=== PATIENT | male | born 1940 | race Caucasian/White ===

== ENCOUNTER 2019-11-18 14:18 | Inpatient (IN) ==
--- NOTE | 2019-11-18 14:45 | DR.GENAD ---
HPI Time Seen Time Seen by Provider: 11/18/19 14:45 PCP Primary Care Physician: MOHIT PENN HPI Comment HPI Comment: PATIENT IS 79YR OLD MALE IN ER WITH GENERALIZED WEAKNESS AND ANOREXIA WORSE SINCE YESTERDAY. NO FEVER OR CHEST PAIN OR ABDOMINAL PAIN RO DYSURIA. PATIENT HAVE NON PRODUCTIVE COUGH. Complaint/Symptoms Chief Complaint Doctors Comments: INCREASING GENERALIZED WEAKNESS AND ANOREXIA Chief Complaint:: PT TO ER WITH C/O < APPETITE, PT TO ER ON PREVIOUS DAY TIMES 2 FOR WEAKNESS ,BR Nurses notes reviewed Nurses Notes Review: Yes Source History Provided: EMS Mode of Arrival Mode of Arrival: EMS Timing Onset of Chief Complaint: 11/17/19 Came on: Suddenly Duration Duration: Constant Duration: Days Location Location: GENERALIZED WEAKNESS. Severity Severity: Moderate Modifying Factors Worsens:: EXERTION. Improves:: REST. Other History Other History: HISTORY DEMENTIA. PMH PMH Past Medical History: Yes Past Medical History: Dementia Past Surgical History: Yes Surgical History: Unknown Family History History of Family Medical Conditions: No Social History Does patient currently use any type of tobacco product: No Have you used tobacco products in the last 12 months: No Type of Tobacco Use: None Does any household member use tobacco: No Alcohol Use: None Do you use any recreational Drugs:: No Lives With: Family Lives Where: Home infectious screening In the last 2 months have you had wt loss of >10#?: NO Have you had fever, night sweats or hemotysis?: No Have you traveled outside the country in the last 6 months?: No Isolation: Standard ROS Review of Systems Constitutional: See HPI, Weakness and Fatigue; negative Fever Eyes: No Symptoms Reported and See HPI; negative Blurred Vision ENTM: No Symptoms Reported and See HPI; negative Ear Pain, Nose Discharge, Nose Congestion and Throat Pain Respiratoy: No Symptoms Reported, See HPI and Non-Productive Cough; negative Moist Cough, Short of Breath and Wheezing Cardiovascular: No Symptoms Reported and See HPI; negative Chest Pain, Edema and Palpitations Gastrointestinal/Abdominal: See HPI, Nausea and Other (POOR APPETITE.); negative Abdominal Pain, Diarrhea and Vomiting Genitourinary: No Symptoms Reported and See HPI; negative Dysuria Neurological: See HPI and Weakness; negative Headache and Dizziness Musculoskeletal: See HPI, Back Pain and Muscle Pain Integumentary: See HPI and Dryness; negative Change in Color, Rash and Juandice Hematologic/Lymphatic: See HPI and Easy Bruising; negative Swollen Glands Endocrine: See HPI and Decreased Appetite; negative Increased Thirst and Increased Urine Psychiatric: No Symptoms Reported and See HPI All Other Systems: Reviewed and Negative Unable to Obtain Due To: Dementia PE Vital Signs Vitals: Temperature 97.6 F Pulse Rate [Left Brachial] 103 Pulse Rate 98 Respiratory Rate 18 Blood Pressure [Left Arm] 197/87 Blood Pressure 137/78 O2 Sat by Pulse Oximetry 92 General Limitations: No Limitations General Appearance: Alert and In No Apparent Distress Head Head Exam: Normal Inspection and Atraumatic Eyes Eye exam: Normal Appearance and PERRL; negative Scleral Icterus and Conjunctival Injection ENT ENT Exam: Normal Exam, Normal Oropharynx, Normal External Ear Exam and TM's Normal Bilaterally External Ear Exam: Normal External Inspection TM/Canal Exam: Bilateral: Normal Nose Exam: Normal Nose Exam; negative Sinus Tenderness Mouth Exam: Normal Inspection Throat Exam: Normal Inspection; negative Tonsillar Erythema, Tonsillomegaly and Tonsillar Exudate Neck Neck Exam: Normal Inspection and Trachea Midline; negative Tenderness and Lymphadenopathy Chest Chest Inspection: Normal Inspection, Symmetric Chest Wall Rise and Tenderness Respiratory Respiratory Exam: Normal Lung Sounds Bilat; negative Accessory Muscle Use, Chest Wall Tenderness and Respiratory Distress Respiratory Exam: Bilateral: Rhonchi and Lower: Rhonchi Cardiovascular Cardiovascular Exam: Regular Rate, Normal Rhythm and Normal Heart Sounds Abdominal Exam Abdominal Exam: Normal Inspection, Normal Bowel Sounds and Soft; negative Tenderness Extremities Extremities Exam: Normal Inspection Back Back Exam: Normal Inspection Neurologic Neurological Exam: Alert and Oriented X3; negative Motor Sensory Deficit Psychiatric Psychiatric Exam: Normal Affect and Normal Mood Skin Skin Exam: Dry MDM Differential Diagnosis Differential Diagnosis: GENERALIZED WEAKNESS, ANOREXIA, COURSE Treatment Treatment: SEE ORDERS. Education/Counseling Education/Counseling: Patient Educated On: Diagnosis ROR Labs Reviewed Laboratory Results Reviewed?: Yes Result Diagrams: 11/30/19 05:44 11/30/19 05:44 Laboratory: 11/18/19 23:39 Blood Blood Culture - Final 11/18/19 22:50 Blood Blood Culture - Final 11/19/19 06:34 Sputum - Expectorated Sputum Sputum Culture - Final 11/19/19 06:34 Sputum - Expectorated Sputum - Final WBC 10.4 X10^3/uL (3.6-10.0) H 11/20/19 05:42 RBC 3.60 X10^6/uL (4.7-6.0) L 11/20/19 05:42 Hgb 11.5 g/dL (13.5-18.0) L 11/20/19 05:42 Hct 33.2 % (42.0-54.0) L 11/20/19 05:42 MCV 92.2 fL (80.0-100.0) 11/20/19 05:42 MCH 31.9 pg (27.0-34.0) 11/20/19 05:42 MCHC 34.6 g/dL (33.0-35.0) 11/20/19 05:42 RDW 13.9 % (11.6-16.5) 11/20/19 05:42 Plt Count 202 X10^3/uL (150.0-450.0) 11/20/19 05:42 MPV 7.3 fL (7.4-11.0) L 11/20/19 05:42 Neut % (Auto) 74.1 % (42.0-75.0) 11/20/19 05:42 Lymph % (Auto) 13.4 % (21.0-51.0) L 11/20/19 05:42 [place] % (Auto) 10.3 % (0.0-13.0) 11/20/19 05:42 Eos % (Auto) 1.7 % (0.9-2.9) 11/20/19 05:42 Baso % (Auto) 0.5 % (0.2-1.0) 11/20/19 05:42 Neut # (Auto) 7.7 x10^3/uL (2.2-4.8) H 11/20/19 05:42 Lymph # (Auto) 1.4 X10^3/uL (1.3-2.9) 11/20/19 05:42 [place] # (Auto) 1.1 x10^3/uL (0.3-0.8) H 11/20/19 05:42 Eos # (Auto) 0.2 x10^3/uL (0.0-0.2) 11/20/19 05:42 Baso # (Auto) 0.0 X10^3/uL (0.0-0.1) 11/20/19 05:42 Absolute Nucleated RBC 0.0 /100WBC 11/20/19 05:42 Sodium 138 mmol/L (136-145) 11/20/19 05:42 Corrected Sodium 139 mmol/L (136-145) 11/20/19 05:42 Potassium 3.1 mmol/L (3.5-5.1) L 11/20/19 05:42 Chloride 105 mmol/L (98-107) 11/20/19 05:42 Carbon Dioxide 23.3 mmol/L (21-32) 11/20/19 05:42 BUN 12 mg/dL (7-18) 11/20/19 05:42 Creatinine 1.41 mg/dL (0.70-1.30) H 11/20/19 05:42 Est GFR (MDRD) Af Amer > 60 (>60) 11/20/19 05:42 Est GFR (MDRD) Non-Af 51 (>60) L 11/20/19 05:42 Glucose 125 mg/dL (65-99) H 11/20/19 05:42 Lactic Acid 0.8 mmol/L (0.4-2.0) 11/18/19 22:50 Calcium 7.8 mg/dL (8.5-10.1) L 11/20/19 05:42 Corrected Calcium 9.2 mg/dL (8.5-10.1) 11/20/19 05:42 Magnesium 1.9 mg/dL (1.7-2.9) 11/19/19 05:50 Total Bilirubin 0.60 mg/dL (0.2-1.0) 11/20/19 05:42 AST 19 Units/L (15-37) 11/20/19 05:42 ALT 15 Units/L (12-78) 11/20/19 05:42 Alkaline Phosphatase 41 Units/L (46-116) L 11/20/19 05:42 Creatine Kinase 109 Units/L (39-308) 11/19/19 05:50 CK-MB (CK-2) 1.4 ng/mL (0-4.0) 11/19/19 05:50 CK/CKMB % Calc 1.3 % (<4) 11/19/19 05:50 Troponin I < 0.02 ng/mL (0-1.5) 11/19/19 05:50 Total Protein 6.3 g/dL (6.4-8.2) L 11/20/19 05:42 Albumin 2.2 g/dL (3.4-5.0) L 11/20/19 05:42 Globulin 4.1 g/dL (2.5-4.5) 11/20/19 05:42 Albumin/Globulin Ratio 0.5 Ratio (1.1-2.1) L 11/20/19 05:42 Specimen Type Clean catch urine 11/18/19 21:30 Urine Color Dark yellow (YELLOW) 11/18/19 21:30 Urine Appearance Slightly hazy (CLEAR) 11/18/19 21:30 Urine pH 5.0 (5.0 - 8.0) 11/18/19 21:30 Ur Specific [place] 1.020 (1.000-1.030) 11/18/19 21:30 Urine Protein 2+ (NEGATIVE) 11/18/19 21:30 Urine Glucose (UA) Negative (NEGATIVE) 11/18/19 21:30 Urine Ketones 2+ (NEGATIVE) 11/18/19 21:30 Urine Occult Blood 4+ (NEGATIVE) 11/18/19 21:30 Urine Nitrite Negative (NEGATIVE) 11/18/19 21:30 Urine Bilirubin Negative (NEGATIVE) 11/18/19 21:30 Urine Urobilinogen Normal (NORMAL) 11/18/19 21:30 Ur Leukocyte Esterase Negative (NEGATIVE) 11/18/19 21:30 Urine RBC 3-5 /HPF (0-3) A 11/18/19 21:30 Urine WBC None seen /HPF (0-5) 11/18/19 21:30 Ur Squamous Epith Cells Rare /HPF (NEGATIVE) 11/18/19 21:30 Urine Bacteria Negative /HPF (NEGATIVE) 11/18/19 21:30 Urine Mucus Few /HPF (NEGATIVE) 11/18/19 16:51 Ur Culture Indicated? No/not indicated 11/18/19 21:30 Opioid Opioid Risk Tool Age (Dex box if 16-45): No History of Preadolescent Sexual Abuse: No Total: 0 Total Score Risk Category: Low Risk Copyright: Rodrigo HASKINS predicting aberrant behaviors Diagnosis Discharge Problem: Hypokalemia, Generalized weakness Acute bronchitis Qualifiers: Bronchitis organism: unspecified organism Qualified Code(s): J20.9 - Acute bronchitis, unspecified AMS (altered mental status) Qualifiers: Altered mental status type: transient alteration of awareness Qualified Code(s): R40.4 - Transient alteration of awareness Instructions Instructions: Fall Prevention in the Home, Adult, [id number] Pulmonary Embolism Hypertension, [id number] Community-Acquired Pneumonia, Adult, [id number] Forms: Patient Portal
[2019-11-18 15:06] LABS: BASOPHILS % (AUTO) 0.4 % (0.2-1.0); EOSINOPHILS # (AUTO) 0.1 x10^3/uL (0.0-0.2); HEMATOCRIT 37.8 % (42.0-54.0); HEMOGLOBIN 12.9 g/dL (13.5-18.0); LYMPHOCYTES # (AUTO) 1.5 X10^3/uL (1.3-2.9); LYMPHOCYTES % (AUTO) 12.4 % (21.0-51.0); MEAN CORPUSCULAR HEMOGLOBIN 31.6 pg (27.0-34.0); MEAN CORPUSCULAR HGB CONC 34.1 g/dL (33.0-35.0); MEAN CORPUSCULAR VOLUME 92.7 fL (80.0-100.0); MEAN PLATELET VOLUME 7.8 fL (7.4-11.0); MONOCYTES # (AUTO) 1.3 x10^3/uL (0.3-0.8); MONOCYTES % (AUTO) 10.7 % (0.0-13.0); NEUTROPHILS % (AUTO) 75.5 % (42.0-75.0); PLATELET COUNT 183 X10^3/uL (150.0-450.0); RED BLOOD COUNT 4.07 X10^6/uL (4.7-6.0); RED CELL DISTRIBUTION WIDTH 13.9 % (11.6-16.5)
[2019-11-18 15:16] LABS: ALANINE AMINOTRANSFERASE 17 Units/L (12-78); ALBUMIN 2.8 g/dL (3.4-5.0); ALKALINE PHOSPHATASE 37 Units/L (46-116); ASPARTATE AMINO TRANSFERASE 18 Units/L (15-37); BLOOD UREA NITROGEN 20 mg/dL (7-18); CALCIUM 8.2 mg/dL (8.5-10.1); CARBON DIOXIDE 26.4 mmol/L (21-32); CHLORIDE 101 mmol/L (98-107); COR CA(FOR HYPOALB) 9.2 mg/dL (8.5-10.1); CREATININE 1.55 mg/dL (0.70-1.30); SODIUM 135 mmol/L (136-145); TOTAL PROTEIN 7.1 g/dL (6.4-8.2); eGFR NON BLACK RACES 46 (>60)
[2019-11-18 17:11] LABS: BILIRUBIN,URINE NEGATIVE (NEGATIVE); BLOOD/HEMOGLOBIN,URINE 4+ (NEGATIVE); GLUCOSE, URINE NEGATIVE (NEGATIVE); KETONES,URINE 2+ (NEGATIVE); LEUKOCYTE ESTERASE ,URINE NEGATIVE (NEGATIVE); NITRITES,URINE NEGATIVE (NEGATIVE); PROTEIN,URINE 2+ (NEGATIVE); UROBILINOGEN,URINE NORMAL (NORMAL)
[2019-11-18 17:13] LABS: APPEARANCE,URINE HAZY (CLEAR); COLOR,URINE YELLOW (YELLOW)
[2019-11-18 17:22] LABS: BACTERIA,URINE TRACE /HPF (NEGATIVE); MUCUS,URINE FEW /HPF (NEGATIVE); SQUAMOUS EPITHELIAL CELL,UR RARE /HPF (NEGATIVE)
[2019-11-18] MEDS ORDERED: SALINE 3% 15 ML NEB TX ONE (17:56)
[2019-11-18] MEDS ORDERED: SALINE 3% 15 ML NEB TX NEB ONE (18:00)
[2019-11-18] MEDS: ZOSYN VIAL 3.375 GRAMS 3.375 G in NS 100 ML IV + SPIKE MINIBAG* 100 ML IV SCH (21:00)
[2019-11-18] MEDS: NS 1000 ML 1,000 ML IV SCH (21:00)
[2019-11-18 22:01] LABS: BILIRUBIN,URINE NEGATIVE (NEGATIVE); BLOOD/HEMOGLOBIN,URINE 4+ (NEGATIVE); GLUCOSE, URINE NEGATIVE (NEGATIVE); KETONES,URINE 2+ (NEGATIVE); LEUKOCYTE ESTERASE ,URINE NEGATIVE (NEGATIVE); NITRITES,URINE NEGATIVE (NEGATIVE); PROTEIN,URINE 2+ (NEGATIVE); UROBILINOGEN,URINE NORMAL (NORMAL)
[2019-11-18 22:24] LABS: APPEARANCE,URINE SLIGHTLY HAZY (CLEAR); BACTERIA,URINE NEGATIVE /HPF (NEGATIVE); COLOR,URINE DARK YELLOW (YELLOW); SQUAMOUS EPITHELIAL CELL,UR RARE /HPF (NEGATIVE)
[2019-11-18 23:24] LABS: CKMB % 1.8 % (<4); CREATINE KINASE 109 Units/L (39-308); TROPONIN I < 0.02 ng/mL (0-1.5)
[2019-11-19 00:01] VITALS: BMI 22.5
[2019-11-19] MEDS: ZOSYN VIAL 3.375 GRAMS 3.375 G in NS 100 ML IV + SPIKE MINIBAG* 100 ML IV SCH ×4 (00:06→22:22)
[2019-11-19] MEDS: DUONEB 0.5 MG/3 MG (3 mL) NEB SCH ×4 (00:50→17:02)
[2019-11-19] MEDS: NS 1000 ML 1,000 ML IV SCH ×3 (05:29→22:21)
[2019-11-19] MEDS: ULTRAM PO PRN (05:47)
[2019-11-19 06:06] LABS: BASOPHILS % (AUTO) 0.3 % (0.2-1.0); EOSINOPHILS # (AUTO) 0.1 x10^3/uL (0.0-0.2); HEMATOCRIT 35.7 % (42.0-54.0); HEMOGLOBIN 12.2 g/dL (13.5-18.0); LYMPHOCYTES # (AUTO) 1.7 X10^3/uL (1.3-2.9); LYMPHOCYTES % (AUTO) 13.7 % (21.0-51.0); MEAN CORPUSCULAR HEMOGLOBIN 31.8 pg (27.0-34.0); MEAN CORPUSCULAR HGB CONC 34.3 g/dL (33.0-35.0); MEAN CORPUSCULAR VOLUME 92.8 fL (80.0-100.0); MEAN PLATELET VOLUME 7.8 fL (7.4-11.0); MONOCYTES # (AUTO) 1.3 x10^3/uL (0.3-0.8); MONOCYTES % (AUTO) 10.8 % (0.0-13.0); NEUTROPHILS # (AUTO) 9.2 x10^3/uL (2.2-4.8); NEUTROPHILS % (AUTO) 74.2 % (42.0-75.0); PLATELET COUNT 169 X10^3/uL (150.0-450.0); RED BLOOD COUNT 3.84 X10^6/uL (4.7-6.0); RED CELL DISTRIBUTION WIDTH 14.3 % (11.6-16.5); WHITE BLOOD COUNT 12.4 X10^3/uL (3.6-10.0)
--- NOTE | 2019-11-19 06:08 | RAD ---
HISTORYShortness of breathSTUDYCHEST, 1 VIEWCOMPARISONFebruary 2019FINDINGSThe heart is enlarged. No congestive heart failure is noted. The lungs are hypoinflated but free of acute infiltrates. Right basilar subsegmental atelectasis is unchanged. Bony thorax is unremarkable.IMPRESSIONCardiomegaly without congestive heart failureLungs hypoinflated but free of acute infiltratesSubsegmental atelectasis right lung base unchangedElectronically signed by: JESS ELILS (Nov 19, 2019 06:07:11)
[2019-11-19 06:28] LABS: ALANINE AMINOTRANSFERASE 11 Units/L (12-78); ALBUMIN 2.4 g/dL (3.4-5.0); ALKALINE PHOSPHATASE 33 Units/L (46-116); ASPARTATE AMINO TRANSFERASE 21 Units/L (15-37); BLOOD UREA NITROGEN 17 mg/dL (7-18); CHLORIDE 104 mmol/L (98-107); CKMB % 1.3 % (<4); COR CA(FOR HYPOALB) 9.3 mg/dL (8.5-10.1); COR NA(FOR HYPERGLY) 136 mmol/L (136-145); CREATINE KINASE 109 Units/L (39-308); CREATINE KINASE MB 1.4 ng/mL (0-4.0); CREATININE 1.55 mg/dL (0.70-1.30); MAGNESIUM 1.9 mg/dL (1.7-2.9); SODIUM 136 mmol/L (136-145); TOTAL PROTEIN 6.6 g/dL (6.4-8.2); TROPONIN I < 0.02 ng/mL (0-1.5); eGFR NON BLACK RACES 46 (>60)
[2019-11-19] MEDS: ARICEPT TAB 10 MG PO SCH (09:26)
[2019-11-19] MEDS: DITROPAN TAB 5 MG PO SCH (09:26)
[2019-11-19] MEDS: ASPIRIN EC 81 MG PO SCH (09:26)
[2019-11-19] MEDS: LOPRESSOR TAB 25 MG PO SCH (09:27)
[2019-11-19] MEDS: SYNTHROID 25 mcg TAB PO SCH (09:27)
[2019-11-19] MEDS: LOVENOX INJ 40 MG SYR SC SCH (10:34)
--- NOTE | 2019-11-19 19:34 | DR.H&P ---
H&P - History & Physical for Day of: H&P Date: 11/18/19 - Chief Complaint Chief Complaint: WEAKNESS, DECREASED APPETITE, GENERALIZED PAIN, SOB, COUGH, FEVER - History of Present Illness History of Present Illness: IS A 79 YEAR OLD PATIENT OF OURS WHO PRESENTED TO THE EMERGENCY ROOM WITH COMPLAINTS OF WEAKNESS, DECREASED APPETITE, GENERALIZED PAIN, AND SHORTNESS OF BREATH. HE HAS A PMH OF DEMENTIA AND OSTEOARTHRITIS. FAMILY REPORTS THAT HE HAS HAD A RECENT COUGH AND FEVER. ON ARRIVAL TO THE ER, VITALS WERE 98.8-88-20-93%-137/78. LABS WERE OBTAINED. ABNORMAL LAB VALUES INCLUDE THE FOLLOWING: WBC 12.0, RBC 4.07, HGB 12.9, HCT 37.8, SODIUM 135, BUN 20, CREATININE 1.55, CALCIUM 8.2, ALK PHOS 37, ALBUMIN 2.8. CARDIAC ENZYMES WITHIN NORMAL LIMITS. A URINALYSIS WAS OBTAINED AND REVEALED: WBC 0-2, RBC 3-5, BACTERIA TRACE, LEUKOCYTES NEGATIVE. BLOOD AND SPUTUM CULTURES WERE OBTAINED. EKG WAS OBTAINED AND REVEALED: SINUS RHYTHM WITH HR 84. A CHEST XRAY WAS OBTAINED ON 11/17 AND REVEALED: Right basilar subsegmental atelectasis versus scarring. AN ABDOMEN/PELVIS CT WITHOUT CONTRAST WAS ALSO OBTAINED ON 11/17 AND REVEALED: Urinary bladder wall thickening with some associated diverticula. There is no associated strain although clinical correlation is requested to exclude the possibility underlying cystitis. HE WAS ADMITTED TO THE HOSPITAL FOR FURTHER EVALUATION AND TREATMENT OF ACUTE BRONCHITIS AND ALTERED MENTAL STATUS. HE WAS STARTED ON NS AT 75 ML/HR, ZOSYN 3.375G IV TID, RESPIRATORY TX, LOVENOX, SUPPLEMENTAL OXYGEN, AND HOME MEDICATIONS WERE RESUMED. WE PLAN TO FOLLOW UP WITH AM LABS AND CHEST XRAY AND CONTINUE TO MONITOR. - Past Medical History Past Medical History: Dementia - Past Surgical History Surgical History: Tonsillectomy - Family History Family Medical History: [place], Coronary Artery Disease, Heart Failure, Hypertension - Social History Does patient currently use any type of tobacco product: No Have you used tobacco products in the last 12 months: No Type of Tobacco Use: None Does any household member use tobacco: No Alcohol Use: None Drug Use: None - Medications Home Medications: No Known Drug Allergies Allergy (Verified 11/17/19 08:56) - Review of Systems Constitutional: Weakness Eyes: No Symptoms Reported ENT: No Symptoms Reported Respiratory: See HPI, Cough, Shortness of Breath, SOB with Excertion Cardiovascular: No Symptoms Reported Gastrointestinal: Abdominal Pain Genitourinary: No Symptoms Reported Musculoskeletal: No Symptoms Reported Skin: No Symptoms Reported Neurological: Weakness, Confusion - Physical Exam Vital Signs: Temperature 98.3 F Pulse Rate [Left Brachial] 102 Pulse Rate 98 Respiratory Rate 18 Blood Pressure [Left Arm] 134/63 Blood Pressure 137/78 O2 Sat by Pulse Oximetry 94 Oriented: Person Eyes: Normal Ear: Normal Nose: Normal Throat: Normal Respiratory: Diminished Throughout Cardiovascular: Normal : Normal Auscultation: Bowel Sounds: Normal Palpation: Normal Tenderness: Normal Skin: Normal Musculoskeletal: Normal Psychiatric: Normal Mood Description: Calm Affect: Normal - Assessment/Plan (1) Acute bronchitis Qualifiers: Bronchitis organism: unspecified organism Qualified Code(s): J20.9 - Acute bronchitis, unspecified Status: Acute Plan: ADMIT, NS AT 75 ML/HR, ZOSYN 3.375G IV TID, RESPIRATORY TX, LOVENOX, SUPPLEMENTAL OXYGEN, AND HOME MEDICATIONS WERE RESUMED, FOLLOW UP WITH AM LABS AND CHEST XRAY (2) Altered mental status Qualifiers: Altered mental status type: transient alteration of awareness Qualified Code(s): R40.4 - Transient alteration of awareness Status: Acute - Allergies Allergies/Adverse Reactions: Allergies Allergy/AdvReac Type Severity Reaction Status Date / Time No Known Drug Allergies Allergy Verified 11/17/19 08:56
[2019-11-20] MEDS: DUONEB 0.5 MG/3 MG (3 mL) NEB SCH ×5 (00:49→18:46)
[2019-11-20 05:55] LABS: BASOPHILS % (AUTO) 0.5 % (0.2-1.0); EOSINOPHILS # (AUTO) 0.2 x10^3/uL (0.0-0.2); EOSINOPHILS % (AUTO) 1.7 % (0.9-2.9); HEMATOCRIT 33.2 % (42.0-54.0); HEMOGLOBIN 11.5 g/dL (13.5-18.0); LYMPHOCYTES # (AUTO) 1.4 X10^3/uL (1.3-2.9); LYMPHOCYTES % (AUTO) 13.4 % (21.0-51.0); MEAN CORPUSCULAR HEMOGLOBIN 31.9 pg (27.0-34.0); MEAN CORPUSCULAR HGB CONC 34.6 g/dL (33.0-35.0); MEAN CORPUSCULAR VOLUME 92.2 fL (80.0-100.0); MEAN PLATELET VOLUME 7.3 fL (7.4-11.0); MONOCYTES # (AUTO) 1.1 x10^3/uL (0.3-0.8); MONOCYTES % (AUTO) 10.3 % (0.0-13.0); NEUTROPHILS # (AUTO) 7.7 x10^3/uL (2.2-4.8); NEUTROPHILS % (AUTO) 74.1 % (42.0-75.0); PLATELET COUNT 202 X10^3/uL (150.0-450.0); RED CELL DISTRIBUTION WIDTH 13.9 % (11.6-16.5); WHITE BLOOD COUNT 10.4 X10^3/uL (3.6-10.0)
[2019-11-20 06:11] LABS: ALANINE AMINOTRANSFERASE 15 Units/L (12-78); ALBUMIN 2.2 g/dL (3.4-5.0); ALKALINE PHOSPHATASE 41 Units/L (46-116); ASPARTATE AMINO TRANSFERASE 19 Units/L (15-37); BLOOD UREA NITROGEN 12 mg/dL (7-18); CALCIUM 7.8 mg/dL (8.5-10.1); CARBON DIOXIDE 23.3 mmol/L (21-32); CHLORIDE 105 mmol/L (98-107); COR CA(FOR HYPOALB) 9.2 mg/dL (8.5-10.1); COR NA(FOR HYPERGLY) 139 mmol/L (136-145); CREATININE 1.41 mg/dL (0.70-1.30); SODIUM 138 mmol/L (136-145); TOTAL PROTEIN 6.3 g/dL (6.4-8.2); eGFR NON BLACK RACES 51 (>60)
--- NOTE | 2019-11-20 06:18 | RAD ---
HISTORYShortness of breathSTUDYCHEST, 1 VIEWCOMPARISONFebruary 2019FINDINGSThe heart is upper limits normal in size. No congestive heart failure is noted. The lungs are free of acute alveolar infiltrates. There is subsegmental atelectasis in the right lung base. No pleural effusions are identified. The bony thorax is unremarkable.IMPRESSIONNo change subsegmental atelectasis right lung baseElectronically signed by: JESS ELLIS (Nov 20, 2019 06:16:52)
[2019-11-20] MEDS ORDERED: POTASSIUM CHLORIDE LIQ 20 MEQ UDC PO PRN (07:05)
[2019-11-20] MEDS ORDERED: POTASSIUM CHL 60 MEQ/NS 0.45% 500 ML IV PRN (07:05)
[2019-11-20] MEDS ORDERED: K-DUR TAB 20 MEQ PO PRN (07:05)
[2019-11-20] MEDS ORDERED: MICRO K EXTEN CAP 10 MEQ PO PRN (07:05)
[2019-11-20] MEDS ORDERED: POTASSIUM CHL 40 MEQ/NS 0.45% 500 ML IV PRN (07:05)
[2019-11-20] MEDS ORDERED: KLOR-CON PO PRN (07:05)
[2019-11-20] MEDS: ZOSYN VIAL 3.375 GRAMS 3.375 G in NS 100 ML IV + SPIKE MINIBAG* 100 ML IV SCH ×3 (07:30→21:07)
[2019-11-20] MEDS: ARICEPT TAB 10 MG PO SCH (09:15)
[2019-11-20] MEDS: ASPIRIN EC 81 MG PO SCH (09:16)
[2019-11-20] MEDS: DITROPAN TAB 5 MG PO SCH (09:16)
[2019-11-20] MEDS: LOVENOX INJ 40 MG SYR SC SCH (09:16)
[2019-11-20] MEDS: LOPRESSOR TAB 25 MG PO SCH (09:16)
[2019-11-20] MEDS: SYNTHROID 25 mcg TAB PO SCH (09:17)
[2019-11-20] MEDS: ULTRAM PO PRN ×2 (13:10→18:34)
[2019-11-20] MEDS: NS 1000 ML 1,000 ML IV SCH ×2 (14:20→23:28)
--- NOTE | 2019-11-20 19:11 | PCM.PROG ---
Progress Note - Progress Note for Day of Date of Exam: 11/20/19 - Subjective Subjective: IS BEING TREATED FOR ACUTE BRONCHITIS AND ALTERED MENTAL STATUS. TODAY, HE IS ALERT AND ORIENTED, LYING IN BED ON MORNING ROUNDS. HE CONTINUES WITH COMPLAINTS OF A PRODUCTIVE COUGH, SHORTNESS OF BREATH, AND WEAKNESS. ON EXAMINATION, HEART IS REGULAR IN RATE AND RHYTHM. BILATERAL LUNGS ARE NOTED WITH DIMINISHED LUNG SOUNDS THROUGHOUT. ABDOMEN IS ROUND, SOFT, AND NON-TENDER WITH NORMAL BOWEL SOUNDS NOTED IN ALL QUADRANTS. A ERICKSON CATHETER IS NOTED TO BEDSIDE DRAINAGE. HIS VITALS THIS MORNING ARE: 97.6-107-18-92%RA-197/87. LABS WERE OBTAINED. ABNORMAL LAB VALUES INCLUDE THE FO LLOWING: WBC 10.4, RBC 3.60, HGB 11.5, HCT 33.2, POTASSIUM 3.1, CREATININE 1.41, GLUCOSE 125, CALCIUM 7.8, ALK PHOS 41, TOTAL PROTEIN 6.3, ALBUMIN 2.2. BLOOD AND SPUTUM CULTURES ARE PENDING. A CHEST XRAY WAS OBTAINED AND REVEALED: No change subsegmental atelectasis right lung base. HE IS CURRENTLY RECEIVING NS AT 75 ML/HR, ZOSYN 3.375G IV TID, RESPIRATORY TX, LOVENOX, SUPPLEMENTAL OXYGEN, AND HOME MEDICATIONS WERE RESUMED. WE WILL CONTINUE WITH CURRENT PLAN OF CARE TODAY. WE WILL START BLADDER TRAINING AND ORDER FOR HIM TO WEAR THE SMARTVEST. OTHERWISE, WE WILL FOLLOW UP WITH AM LABS AND CONTINUE TO MONITOR. - Past Medical Family Social History Past Med/Fam/Surg Hx: No changes since H&P Allergies: Allergies No Known Drug Allergies Allergy (Verified 11/17/19 08:56) - Review of Systems ROS: No change since H&P - Vital Signs and I&O's Vital Signs: Temperature 98.8 F Pulse Rate [Left Brachial] 113 Pulse Rate 98 Respiratory Rate 18 Blood Pressure [Left Arm] 162/89 Blood Pressure 137/78 O2 Sat by Pulse Oximetry 95 Intake and Output: Intake & Output 11/18/19 11/19/19 11/20/19 11/21/19 11:59 11:59 11:59 11:59 Intake Total 1525 / 1525 2470 / 2470 993 / 993 Output Total 1100 / 1100 1950 / 1950 425 / 425 Balance 425 / 425 520 / 520 568 / 568 - Physical Exam Oriented: Person Eyes: Normal Ear: Normal Nose: Normal Throat: Normal Respiratory: Generalized, Wheezes Cardiovascular: Tachycardia. negative: S3, S4, Murmur : Normal Auscultation: Bowel Sounds: Normal Palpation: Normal Tenderness: Normal Skin: Normal Musculoskeletal: Normal Psychiatric: Normal Mood Description: Calm Affect: Normal Speech Pattern: Clear, Appropriate - Laboratory and Diagnostics Result Diagrams: 11/20/19 05:42 11/20/19 17:15 Labs: 11/19/19 06:34 Sputum - Expectorated Sputum Sputum Culture - Preliminary 11/19/19 06:34 Sputum - Expectorated Sputum - Final 11/18/19 23:39 Blood Blood Culture - Preliminary 11/18/19 22:50 Blood Blood Culture - Preliminary Laboratory WBC 10.4 X10^3/uL (3.6-10.0) H 11/20/19 05:42 RBC 3.60 X10^6/uL (4.7-6.0) L 11/20/19 05:42 Hgb 11.5 g/dL (13.5-18.0) L 11/20/19 05:42 Hct 33.2 % (42.0-54.0) L 11/20/19 05:42 MCV 92.2 fL (80.0-100.0) 11/20/19 05:42 MCH 31.9 pg (27.0-34.0) 11/20/19 05:42 MCHC 34.6 g/dL (33.0-35.0) 11/20/19 05:42 RDW 13.9 % (11.6-16.5) 11/20/19 05:42 Plt Count 202 X10^3/uL (150.0-450.0) 11/20/19 05:42 MPV 7.3 fL (7.4-11.0) L 11/20/19 05:42 Neut % (Auto) 74.1 % (42.0-75.0) 11/20/19 05:42 Lymph % (Auto) 13.4 % (21.0-51.0) L 11/20/19 05:42 [place] % (Auto) 10.3 % (0.0-13.0) 11/20/19 05:42 Eos % (Auto) 1.7 % (0.9-2.9) 11/20/19 05:42 Baso % (Auto) 0.5 % (0.2-1.0) 11/20/19 05:42 Neut # (Auto) 7.7 x10^3/uL (2.2-4.8) H 11/20/19 05:42 Lymph # (Auto) 1.4 X10^3/uL (1.3-2.9) 11/20/19 05:42 [place] # (Auto) 1.1 x10^3/uL (0.3-0.8) H 11/20/19 05:42 Eos # (Auto) 0.2 x10^3/uL (0.0-0.2) 11/20/19 05:42 Baso # (Auto) 0.0 X10^3/uL (0.0-0.1) 11/20/19 05:42 Absolute Nucleated RBC 0.0 /100WBC 11/20/19 05:42 Sodium 138 mmol/L (136-145) 11/20/19 05:42 Corrected Sodium 139 mmol/L (136-145) 11/20/19 05:42 Potassium 3.5 mmol/L (3.5-5.1) 11/20/19 17:15 Chloride 105 mmol/L (98-107) 11/20/19 05:42 Carbon Dioxide 23.3 mmol/L (21-32) 11/20/19 05:42 BUN 12 mg/dL (7-18) 11/20/19 05:42 Creatinine 1.41 mg/dL (0.70-1.30) H 11/20/19 05:42 Est GFR (MDRD) Af Amer > 60 (>60) 11/20/19 05:42 Est GFR (MDRD) Non-Af 51 (>60) L 11/20/19 05:42 Glucose 125 mg/dL (65-99) H 11/20/19 05:42 Lactic Acid 0.8 mmol/L (0.4-2.0) 11/18/19 22:50 Calcium 7.8 mg/dL (8.5-10.1) L 11/20/19 05:42 Corrected Calcium 9.2 mg/dL (8.5-10.1) 11/20/19 05:42 Magnesium 1.9 mg/dL (1.7-2.9) 11/19/19 05:50 Total Bilirubin 0.60 mg/dL (0.2-1.0) 11/20/19 05:42 AST 19 Units/L (15-37) 11/20/19 05:42 ALT 15 Units/L (12-78) 11/20/19 05:42 Alkaline Phosphatase 41 Units/L (46-116) L 11/20/19 05:42 Creatine Kinase 109 Units/L (39-308) 11/19/19 05:50 CK-MB (CK-2) 1.4 ng/mL (0-4.0) 11/19/19 05:50 CK/CKMB % Calc 1.3 % (<4) 11/19/19 05:50 Troponin I < 0.02 ng/mL (0-1.5) 11/19/19 05:50 Total Protein 6.3 g/dL (6.4-8.2) L 11/20/19 05:42 Albumin 2.2 g/dL (3.4-5.0) L 11/20/19 05:42 Globulin 4.1 g/dL (2.5-4.5) 11/20/19 05:42 Albumin/Globulin Ratio 0.5 Ratio (1.1-2.1) L 11/20/19 05:42 Specimen Type Clean catch urine 11/18/19 21:30 Urine Color Dark yellow (YELLOW) 11/18/19 21:30 Urine Appearance Slightly hazy (CLEAR) 11/18/19 21:30 Urine pH 5.0 (5.0 - 8.0) 11/18/19 21:30 Ur Specific [place] 1.020 (1.000-1.030) 11/18/19 21:30 Urine Protein 2+ (NEGATIVE) 11/18/19 21:30 Urine Glucose (UA) Negative (NEGATIVE) 11/18/19 21: Urine Ketones 2+ (NEGATIVE) 11/18/19 21: Urine Occult Blood 4+ (NEGATIVE) 11/18/19 21: Urine Nitrite Negative (NEGATIVE) 11/18/19 21:30 Urine Bilirubin Negative (NEGATIVE) 11/18/19 21:30 Urine Urobilinogen Normal (NORMAL) 11/18/19 21: Ur Leukocyte Esterase Negative (NEGATIVE) 11/18/19 21:30 Urine RBC 3-5 /HPF (0-3) A 11/18/19 21:30 Urine WBC None seen /HPF (0-5) 11/18/19 21:30 Ur Squamous Epith Cells Rare /HPF (NEGATIVE) 11/18/19 21:30 Urine Bacteria Negative /HPF (NEGATIVE) 11/18/19 21:30 Urine Mucus Few /HPF (NEGATIVE) 11/18/19 16:51 Ur Culture Indicated? No/not indicated 11/18/19 21:30 - Plan (1) Acute bronchitis Status: Acute Qualifiers: Bronchitis organism: unspecified organism Qualified Code(s): J20.9 - Acute bronchitis, unspecified Plan: NS AT 75 ML/HR, ZOSYN 3.375G IV TID, RESPIRATORY TX, LOVENOX, SUPPLEMENTAL OXYGEN, AND HOME MEDICATIONS WERE RESUMED, FOLLOW UP WITH AM LABS AND CHEST XRAY (2) Altered mental status Status: Acute Qualifiers: Altered mental status type: transient alteration of awareness Qualified Code(s): R40.4 - Transient alteration of awareness
[2019-11-20] MEDS ORDERED: MORPHINE SULFATE INJ 2 MG INJ IVP PRN (20:20)
[2019-11-20] MEDS ORDERED: COLACE CAP 100 MG PO PRN (21:01)
[2019-11-20] MEDS ORDERED: MILK OF MAGNESIA PO PRN (21:01)
[2019-11-21] MEDS: DUONEB 0.5 MG/3 MG (3 mL) NEB SCH ×4 (00:50→16:59)
[2019-11-21] MEDS: ZOSYN VIAL 3.375 GRAMS 3.375 G in NS 100 ML IV + SPIKE MINIBAG* 100 ML IV SCH ×3 (05:01→21:44)
--- NOTE | 2019-11-21 07:09 | RAD ---
HISTORYShortness of breathSTUDYCHEST, 1 VIEWCOMPARISONFebruary 2019FINDINGSThe heart remains upper limits normal in size. No congestive heart failure is noted. No acute alveolar infiltrates or pleural effusions are identified. Subsegmental atelectasis remains present at the right lung base. Bony thorax is unremarkable.IMPRESSIONNo change subsegmental atelectasis right lung baseElectronically signed by: JESS ELLIS (Nov 21, 2019 07:08:08)
[2019-11-21 07:16] LABS: BASOPHILS % (AUTO) 0.5 % (0.2-1.0); EOSINOPHILS # (AUTO) 0.4 x10^3/uL (0.0-0.2); EOSINOPHILS % (AUTO) 4.5 % (0.9-2.9); HEMATOCRIT 34.2 % (42.0-54.0); HEMOGLOBIN 11.6 g/dL (13.5-18.0); LYMPHOCYTES # (AUTO) 1.6 X10^3/uL (1.3-2.9); LYMPHOCYTES % (AUTO) 16.1 % (21.0-51.0); MEAN CORPUSCULAR HEMOGLOBIN 31.8 pg (27.0-34.0); MEAN CORPUSCULAR VOLUME 93.7 fL (80.0-100.0); MEAN PLATELET VOLUME 8.1 fL (7.4-11.0); MONOCYTES % (AUTO) 9.7 % (0.0-13.0); NEUTROPHILS # (AUTO) 6.8 x10^3/uL (2.2-4.8); NEUTROPHILS % (AUTO) 69.2 % (42.0-75.0); PLATELET COUNT 226 X10^3/uL (150.0-450.0); RED BLOOD COUNT 3.65 X10^6/uL (4.7-6.0); RED CELL DISTRIBUTION WIDTH 13.9 % (11.6-16.5); WHITE BLOOD COUNT 9.8 X10^3/uL (3.6-10.0)
[2019-11-21 07:31] LABS: ALANINE AMINOTRANSFERASE 11 Units/L (12-78); ALBUMIN 2.2 g/dL (3.4-5.0); ALKALINE PHOSPHATASE 38 Units/L (46-116); ASPARTATE AMINO TRANSFERASE 24 Units/L (15-37); BLOOD UREA NITROGEN 6 mg/dL (7-18); CALCIUM 8.4 mg/dL (8.5-10.1); CARBON DIOXIDE 23.6 mmol/L (21-32); CHLORIDE 107 mmol/L (98-107); COR CA(FOR HYPOALB) 9.8 mg/dL (8.5-10.1); MAGNESIUM 1.9 mg/dL (1.7-2.9); SODIUM 138 mmol/L (136-145); TOTAL PROTEIN 6.5 g/dL (6.4-8.2); eGFR NON BLACK RACES > 60 (>60)
[2019-11-21] MEDS: ARICEPT TAB 10 MG PO SCH (09:52)
[2019-11-21] MEDS: LOPRESSOR TAB 25 MG PO SCH (09:52)
[2019-11-21] MEDS: ASPIRIN EC 81 MG PO SCH (09:52)
[2019-11-21] MEDS: DITROPAN TAB 5 MG PO SCH (09:52)
[2019-11-21] MEDS: SYNTHROID 25 mcg TAB PO SCH (09:52)
[2019-11-21] MEDS: LOVENOX INJ 40 MG SYR SC SCH (09:53)
[2019-11-21] MEDS: ULTRAM PO PRN (09:53)
[2019-11-21] MEDS: DIFLUCAN 200 MG IV PREMIX* 200 MG/100 ML BAG IV SCH (11:04)
[2019-11-21 11:32] LABS: CKMB % 2.1 % (<4); CREATINE KINASE 110 Units/L (39-308); CREATINE KINASE MB 2.3 ng/mL (0-4.0); TROPONIN I < 0.02 ng/mL (0-1.5)
[2019-11-21] MEDS: NS 1000 ML 1,000 ML IV SCH ×2 (12:21→21:46)
[2019-11-21 14:48] LABS: CREATINE KINASE 106 Units/L (39-308); CREATINE KINASE MB 2.1 ng/mL (0-4.0); TROPONIN I < 0.02 ng/mL (0-1.5)
--- NOTE | 2019-11-21 15:10 | CT ---
HISTORY:Abdominal painStudy: CT abdomen and pelvis with contrastComparison:NoneTechnique: Multiple axial images of the abdomen and pelvis were obtained with IV contrast. Oral contrast was administered. Dose reduction techniques including Automated Exposure Control (AEC) and adjustment of mA and kV were utilized.FINDINGS:There is a small right effusion and bibasilar atelectasis. There are partially visualized pulmonary emboli seen in the right lower lobe. The liver, spleen, pancreas, and adrenal glands are unremarkable in their CT appearance . The gallbladder is unremarkable .No renal calculi or obstructive uropathy.No free intraperitoneal air. Oral contrast reaches the hepatic flexure. Scattered air-fluid levels are seen within the colon suggesting a nonspecific enteritis pattern or other diarrheal state. No evidence of intestinal obstruction. The appendix is not visualized. No free fluid or abscess. There is retained stool ball in the rectum.There are degenerative changes of the lumbosacral spine. The vascular structures are unremarkable . No pathologically enlarged lymph nodes are identified.Urinary bladder wall demonstrates heterogeneous areas of thickening and trabeculation with suspected small bladder wall diverticula. Findings could be related to neurogenic bladder or other bladder dysfunction. Urologic follow-up recommended to exclude underlying bladder mass.IMPRESSION ABDOMEN/PELVIS:1. Partially visualized pulmonary emboli seen in the right lower lobe that appear acute. Consider dedicated CTA of the chest if indicated.2. Small right pleural effusion and bibasilar atelectasis.3. Scattered air-fluid levels within the colon suggesting nonspecific enteritis or other diarrheal state.4. Heterogeneous thickening and trabeculation of the urinary bladder wall with small bladder diverticula that could be due to neurogenic bladder or other bladder dysfunction. Urologic follow-up recommended however to exclude underlying bladder lesion.Electronically signed by: MARELY HENRY (Nov 21, 2019 15:09:32)
--- NOTE | 2019-11-21 18:18 | VAS ---
HISTORYACUTE PE, NO COMPLAINTS IN LEGS, NO EDEMA, NO PAINSTUDYLOWER EXT VENOUS, BILATERALCOMPARISONNoneTECHNIQUEMultiple mao scale and color flow Doppler images of the deep venous system were obtained of the right and left lower extremity.FINDINGSThe deep venous system of the right and left lower extremities was evaluated from the level of the common femoral vein through the popliteal vein. Normal color flow and augmentation can be observed. In addition, normal compression is seen throughout the deep venous system.IMPRESSIONNegative for DVT.Electronically signed by: DENY HILL (Nov 21, 2019 18:16:35)
[2019-11-21 18:39] LABS: CKMB % 2.4 % (<4); CREATINE KINASE 129 Units/L (39-308); CREATINE KINASE MB 3.1 ng/mL (0-4.0); TROPONIN I < 0.02 ng/mL (0-1.5)
--- NOTE | 2019-11-21 21:25 | PCM.PROG ---
Progress Note - Progress Note for Day of Date of Exam: 11/21/19 - Subjective Subjective: IS BEING TREATED FOR ACUTE BRONCHITIS AND ALTERED MENTAL STATUS. TODAY, HE IS ALERT AND ORIENTED, LYING IN BED ON MORNING ROUNDS. HE CONTINUES WITH COMPLAINTS OF A PRODUCTIVE COUGH, SHORTNESS OF BREATH, AND WEAKNESS. HE ALSO REPORTS RUQ ABDOMINAL PAIN AND CHEST PAIN THAT IS INTER MITTENT. ON EXAMINATION, HEART IS REGULAR IN RATE AND RHYTHM. BILATERAL LUNGS ARE NOTED WITH DIMINISHED LUNG SOUNDS THROUGHOUT. ABDOMEN IS ROUND, SOFT, AND NOTED WITH RUQ TENDERNESS. A ERICKSON CATHETER IS NOTED TO BEDSIDE DRAINAGE. HIS VITALS THIS MORNING ARE: 98.6-91-20-95%-166/87. LABS WERE OBTAINED. ABNORMAL LAB VALUES INCLUDE THE FOLLOWING: RBC 3.65, HGB 11.6, HCT 34.2, BUN 6, GLUCOSE 105, CALCIUM 8.4, ALT 11, ALK PHOS 38, ALBUMIN 2.2. BLOOD AND SPUTUM CULTURES ARE PENDING. A CHEST XRAY WAS OBTAINED AND REVEALED: No change subsegmental atelectasis right lung base. HE IS CURRENTLY RECEIVING NS AT 75 ML/HR, ZOSYN 3.375G IV TID, RESPIRATORY TX, LOVENOX, SUPPLEMENTAL OXYGEN, AND HOME MEDICATIO NS WERE RESUMED. TODAY, WE WILL OBTAIN AN ABDOMEN/PELVIS CT WITH CONTRAST, SERIAL CARDIAC ENZYMES AND EKGS, AND START DIFLUCAN 200MG IV DAILY. OTHERWISE, WE WILL FOLLOW UP WITH AM LABS AND CONTINUE TO MONITOR. - Past Medical Family Social History Past Med/Fam/Surg Hx: No changes since H&P Allergies: Allergies No Known Drug Allergies Allergy (Verified 11/17/19 08:56) - Review of Systems ROS: No change since H&P - Vital Signs and I&O's Vital Signs: Temperature 98.3 F Pulse Rate [Left Brachial] 98 Pulse Rate 90 Respiratory Rate 20 Blood Pressure [Left Arm] 140/89 Blood Pressure 137/78 O2 Sat by Pulse Oximetry 98 Intake and Output: Intake & Output 11/19/19 11/20/19 11/21/19 11/22/19 11:59 11:59 11:59 11:59 Intake Total 1525 / 1525 2470 / 2470 2243 / 2243 100 / 100 Output Total 1100 / 1100 1950 / 1950 1525 / 1525 Balance 425 / 425 520 / 520 718 / 718 100 / 100 - Physical Exam Oriented: Person Eyes: Normal Ear: Normal Nose: Normal Throat: Normal Respiratory: Generalized, Wheezes Cardiovascular: Tachycardia. negative: S3, S4, Murmur : Normal Auscultation: Bowel Sounds: Normal Tenderness: RUQ, Mild. negative: Rebound, Guarding, Rigidity Skin: Normal Musculoskeletal: Normal Psychiatric: Normal Mood Description: Calm Affect: Normal Speech Pattern: Clear, Appropriate - Laboratory and Diagnostics Result Diagrams: 11/21/19 06:43 11/21/19 06:43 Labs: 11/19/19 06:34 Sputum - Expectorated Sputum Sputum Culture - Final 11/19/19 06:34 Sputum - Expectorated Sputum - Final 11/18/19 23:39 Blood Blood Culture - Preliminary 11/18/19 22:50 Blood Blood Culture - Preliminary Laboratory WBC 9.8 X10^3/uL (3.6-10.0) 11/21/19 06:43 RBC 3.65 X10^6/uL (4.7-6.0) L 11/21/19 06:43 Hgb 11.6 g/dL (13.5-18.0) L 11/21/19 06:43 Hct 34.2 % (42.0-54.0) L 11/21/19 06:43 MCV 93.7 fL (80.0-100.0) 11/21/19 06:43 MCH 31.8 pg (27.0-34.0) 11/21/19 06:43 MCHC 34.0 g/dL (33.0-35.0) 11/21/19 06:43 RDW 13.9 % (11.6-16.5) 11/21/19 06:43 Plt Count 226 X10^3/uL (150.0-450.0) 11/21/19 06:43 MPV 8.1 fL (7.4-11.0) 11/21/19 06:43 Neut % (Auto) 69.2 % (42.0-75.0) 11/21/19 06:43 Lymph % (Auto) 16.1 % (21.0-51.0) L 11/21/19 06:43 [place] % (Auto) 9.7 % (0.0-13.0) 11/21/19 06:43 Eos % (Auto) 4.5 % (0.9-2.9) H 11/21/19 06:43 Baso % (Auto) 0.5 % (0.2-1.0) 11/21/19 06:43 Neut # (Auto) 6.8 x10^3/uL (2.2-4.8) H 11/21/19 06:43 Lymph # (Auto) 1.6 X10^3/uL (1.3-2.9) 11/21/19 06:43 [place] # (Auto) 1.0 x10^3/uL (0.3-0.8) H 11/21/19 06:43 Eos # (Auto) 0.4 x10^3/uL (0.0-0.2) H 11/21/19 06:43 Baso # (Auto) 0.0 X10^3/uL (0.0-0.1) 11/21/19 06:43 Absolute Nucleated RBC 0.0 /100WBC 11/21/19 06:43 Sodium 138 mmol/L (136-145) 11/21/19 06:43 Corrected Sodium TNP 11/21/19 06:43 Potassium 4.3 mmol/L (3.5-5.1) 11/21/19 06:43 Chloride 107 mmol/L (98-107) 11/21/19 06:43 Carbon Dioxide 23.6 mmol/L (21-32) 11/21/19 06:43 BUN 6 mg/dL (7-18) L 11/21/19 06:43 Creatinine 1.20 mg/dL (0.70-1.30) 11/21/19 06:43 Est GFR (MDRD) Af Amer > 60 (>60) 11/21/19 06:43 Est GFR (MDRD) Non-Af > 60 (>60) 11/21/19 06:43 Glucose 105 mg/dL (65-99) H 11/21/19 06:43 Lactic Acid 0.8 mmol/L (0.4-2.0) 11/18/19 22:50 Calcium 8.4 mg/dL (8.5-10.1) L 11/21/19 06:43 Corrected Calcium 9.8 mg/dL (8.5-10.1) 11/21/19 06:43 Magnesium 1.9 mg/dL (1.7-2.9) 11/21/19 06:43 Total Bilirubin 0.60 mg/dL (0.2-1.0) 11/21/19 06:43 AST 24 Units/L (15-37) 11/21/19 06:43 ALT 11 Units/L (12-78) L 11/21/19 06:43 Alkaline Phosphatase 38 Units/L (46-116) L 11/21/19 06:43 Creatine Kinase 129 Units/L (39-308) 11/21/19 18:05 CK-MB (CK-2) 3.1 ng/mL (0-4.0) 11/21/19 18:05 CK/CKMB % Calc 2.4 % (<4) 11/21/19 18:05 Troponin I < 0.02 ng/mL (0-1.5) 11/21/19 18:05 Total Protein 6.5 g/dL (6.4-8.2) 11/21/19 06:43 Albumin 2.2 g/dL (3.4-5.0) L 11/21/19 06:43 Globulin 4.3 g/dL (2.5-4.5) 11/21/19 06:43 Albumin/Globulin Ratio 0.5 Ratio (1.1-2.1) L 11/21/19 06:43 Specimen Type Clean catch urine 11/18/19 21:30 Urine Color Dark yellow (YELLOW) 11/18/19 21:30 Urine Appearance Slightly hazy (CLEAR) 11/18/19 21:30 Urine pH 5.0 (5.0 - 8.0) 11/18/19 21:30 Ur Specific [place] 1.020 (1.000-1.030) 11/18/19 21:30 Urine Protein 2+ (NEGATIVE) 11/18/19 21:30 Urine Glucose (UA) Negative (NEGATIVE) 11/18/19 21: Urine Ketones 2+ (NEGATIVE) 11/18/19 21:30 Urine Occult Blood 4+ (NEGATIVE) 11/18/19 21:30 Urine Nitrite Negative (NEGATIVE) 11/18/19 21: Urine Bilirubin Negative (NEGATIVE) 11/18/19 21: Urine Urobilinogen Normal (NORMAL) 11/18/19 21:30 Ur Leukocyte Esterase Negative (NEGATIVE) 11/18/19 21:30 Urine RBC 3-5 /HPF (0-3) A 11/18/19 21:30 Urine WBC None seen /HPF (0-5) 11/18/19 21:30 Ur Squamous Epith Cells Rare /HPF (NEGATIVE) 11/18/19 21:30 Urine Bacteria Negative /HPF (NEGATIVE) 11/18/19 21:30 Urine Mucus Few /HPF (NEGATIVE) 11/18/19 16:51 Ur Culture Indicated? No/not indicated 11/18/19 21:30 - Plan (1) Acute bronchitis Status: Acute Qualifiers: Bronchitis organism: unspecified organism Qualified Code(s): J20.9 - Acute bronchitis, unspecified Plan: NS AT 75 ML/HR, ZOSYN 3.375G IV TID, RESPIRATORY TX, LOVENOX, SUPPLEMENTAL OXYGEN, AND HOME MEDICATIONS WERE RESUMED, FOLLOW UP WITH AM LABS AND CHEST XRAY (2) Altered mental status Status: Acute Qualifiers: Altered mental status type: transient alteration of awareness Qualified Code(s): R40.4 - Transient alteration of awareness (3) Abdominal pain Status: Acute Qualifiers: Abdominal location: right upper quadrant Qualified Code(s): R10.11 - Right upper quadrant pain Plan: ABDOMEN/PELVIS CT WITH CONTRAST, CONTINUE TO MONITOR. (4) Chest pain Status: Acute Qualifiers: Chest pain type: unspecified Qualified Code(s): R07.9 - Chest pain, unspecified Plan: SERIAL CARDIAC ENZYMES AND EKGS, CONTINUE TO MONITOR
[2019-11-21] MEDS: PULMICORT NEB TX 0.5 MG NEB SCH (21:27)
[2019-11-21] MEDS: LOVENOX INJ 80 MG SYR SC SCH (22:40)
[2019-11-22] MEDS: DUONEB 0.5 MG/3 MG (3 mL) NEB SCH ×4 (00:43→16:59)
[2019-11-22] MEDS: ZOSYN VIAL 3.375 GRAMS 3.375 G in NS 100 ML IV + SPIKE MINIBAG* 100 ML IV SCH ×3 (06:29→21:01)
[2019-11-22 06:35] LABS: ALANINE AMINOTRANSFERASE 16 Units/L (12-78); ALBUMIN 2.5 g/dL (3.4-5.0); ALKALINE PHOSPHATASE 44 Units/L (46-116); ASPARTATE AMINO TRANSFERASE 28 Units/L (15-37); BLOOD UREA NITROGEN 7 mg/dL (7-18); CALCIUM 8.7 mg/dL (8.5-10.1); CHLORIDE 104 mmol/L (98-107); COR CA(FOR HYPOALB) 9.9 mg/dL (8.5-10.1); SODIUM 138 mmol/L (136-145); TOTAL PROTEIN 7.1 g/dL (6.4-8.2); eGFR NON BLACK RACES 52 (>60)
[2019-11-22 06:56] LABS: BASOPHILS # (AUTO) 0.1 X10^3/uL (0.0-0.1); BASOPHILS % (AUTO) 0.6 % (0.2-1.0); EOSINOPHILS # (AUTO) 0.3 x10^3/uL (0.0-0.2); HEMATOCRIT 37.1 % (42.0-54.0); HEMOGLOBIN 12.6 g/dL (13.5-18.0); LYMPHOCYTES # (AUTO) 1.6 X10^3/uL (1.3-2.9); LYMPHOCYTES % (AUTO) 14.7 % (21.0-51.0); MEAN CORPUSCULAR HEMOGLOBIN 31.9 pg (27.0-34.0); MEAN CORPUSCULAR VOLUME 93.8 fL (80.0-100.0); MEAN PLATELET VOLUME 8.5 fL (7.4-11.0); MONOCYTES # (AUTO) 0.9 x10^3/uL (0.3-0.8); MONOCYTES % (AUTO) 8.3 % (0.0-13.0); NEUTROPHILS # (AUTO) 7.8 x10^3/uL (2.2-4.8); NEUTROPHILS % (AUTO) 73.4 % (42.0-75.0); PLATELET COUNT 237 X10^3/uL (150.0-450.0); RED BLOOD COUNT 3.96 X10^6/uL (4.7-6.0); RED CELL DISTRIBUTION WIDTH 14.3 % (11.6-16.5); WHITE BLOOD COUNT 10.7 X10^3/uL (3.6-10.0)
--- NOTE | 2019-11-22 07:39 | RAD ---
HISTORYSOBSTUDYPortable AP chestCOMPARISONYesterday November 21FINDINGSThere is cardiomegaly unchanged. There is improved subsegmental atelectasis at the right lung base. The left lung is grossly clear. There is no edema or effusion.IMPRESSIONImproving subsegmental atelectasis at the right lung baseElectronically signed by: FE STYLES (Nov 22, 2019 07:38:14)
[2019-11-22] MEDS: DITROPAN TAB 5 MG PO SCH (09:07)
[2019-11-22] MEDS: LOPRESSOR TAB 25 MG PO SCH (09:08)
[2019-11-22] MEDS: ASPIRIN EC 81 MG PO SCH (09:08)
[2019-11-22] MEDS: ARICEPT TAB 10 MG PO SCH (09:08)
[2019-11-22] MEDS: SYNTHROID 25 mcg TAB PO SCH (09:08)
[2019-11-22] MEDS: LOVENOX INJ 80 MG SYR SC SCH ×2 (09:08→21:01)
[2019-11-22] MEDS: DIFLUCAN 200 MG IV PREMIX* 200 MG/100 ML BAG IV SCH (09:09)
[2019-11-22] MEDS: PULMICORT NEB TX 0.5 MG NEB SCH ×2 (09:23→20:22)
[2019-11-22] MEDS: ULTRAM PO PRN ×2 (10:15→20:51)
[2019-11-22] MEDS: NS 1000 ML 1,000 ML IV SCH (14:00)
[2019-11-22] MEDS: HYTRIN PO SCH ×2 (15:04→20:51)
[2019-11-22] MEDS: AVODART PO SCH (15:04)
[2019-11-22] MEDS ORDERED: NS 250 ML IV 250 ML IV ONE (15:10)
--- NOTE | 2019-11-22 16:10 | CT ---
HISTORY:PE seen on CT abdomenStudy: CTA chestComparison:Abdomen CT 04/13/2020Technique: Multiple axial images of the chest were obtained after the administration of IV contrast. 3D reconstructions were performed utilizing radial maximum intensity projection imaging. Dose reduction techniques including Automated Exposure Control (AEC) and adjustment of mA and kV were utilized.Findings:Contrast opacification of the pulmonary arteries is adequate to the level of the segmental branches. There are multiple pulmonary emboli seen within the distal right main pulmonary artery and right upper middle, and lower lobar branches and right lower lobe segmental branches. There is mild cardiomegaly with calcified plaque throughout the coronary arteries and small pericardial effusion. There is aneurysmal dilation of the ascending thoracic aorta measuring 4.3 cm without dissection or intramural hematoma. There is a small right pleural effusion and right basilar atelectasis. There is wedge-shaped opacity in the right middle lobe suggestive of pulmonary infarct. Airways are patient. No pneumothorax. Left lung is clear.The soft tissues and osseous structures appear intact . The visualized portions of the upper abdomen are grossly unremarkable.IMPRESSION:1. Multiple pulmonary emboli in the right upper, middle, and lower lobes.2. Wedge-shaped opacity in the right middle lobe suggestive of pulmonary infarct.3. Small right pleural effusion and right basilar atelectasis.4. 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
[2019-11-23] MEDS: DUONEB 0.5 MG/3 MG (3 mL) NEB SCH ×4 (00:25→17:00)
[2019-11-23] MEDS: NS 1000 ML 1,000 ML IV SCH ×4 (05:45→16:42)
[2019-11-23] MEDS: ZOSYN VIAL 3.375 GRAMS 3.375 G in NS 100 ML IV + SPIKE MINIBAG* 100 ML IV SCH ×3 (05:45→21:06)
--- NOTE | 2019-11-23 06:06 | RAD ---
HISTORYSOBSTUDYAP [id number] cardiomegaly, aortic dilatation with areas of linear atelectasis persisting at the right lung base. There is no new consolidation, edema or developing pleural fluid.IMPRESSIONNo interval change. See above.Electronically signed by: VENICE LOPEZ (Nov 23, 2019 06:05:23)
[2019-11-23 06:07] LABS: BASOPHILS # (AUTO) 0.1 X10^3/uL (0.0-0.1); BASOPHILS % (AUTO) 1.2 % (0.2-1.0); EOSINOPHILS # (AUTO) 0.2 x10^3/uL (0.0-0.2); EOSINOPHILS % (AUTO) 2.6 % (0.9-2.9); HEMATOCRIT 31.4 % (42.0-54.0); HEMOGLOBIN 10.9 g/dL (13.5-18.0); LYMPHOCYTES # (AUTO) 1.6 X10^3/uL (1.3-2.9); LYMPHOCYTES % (AUTO) 16.8 % (21.0-51.0); MEAN CORPUSCULAR HEMOGLOBIN 32.4 pg (27.0-34.0); MEAN CORPUSCULAR HGB CONC 34.6 g/dL (33.0-35.0); MEAN CORPUSCULAR VOLUME 93.5 fL (80.0-100.0); MEAN PLATELET VOLUME 8.1 fL (7.4-11.0); MONOCYTES # (AUTO) 0.7 x10^3/uL (0.3-0.8); NEUTROPHILS # (AUTO) 6.7 x10^3/uL (2.2-4.8); NEUTROPHILS % (AUTO) 71.4 % (42.0-75.0); PLATELET COUNT 259 X10^3/uL (150.0-450.0); RED BLOOD COUNT 3.35 X10^6/uL (4.7-6.0); RED CELL DISTRIBUTION WIDTH 14.2 % (11.6-16.5); WHITE BLOOD COUNT 9.4 X10^3/uL (3.6-10.0)
[2019-11-23 06:20] LABS: ALBUMIN 2.2 g/dL (3.4-5.0); CALCIUM 8.1 mg/dL (8.5-10.1); CARBON DIOXIDE 23.2 mmol/L (21-32); COR CA(FOR HYPOALB) 9.5 mg/dL (8.5-10.1); CREATININE 1.6 mg/dL (0.70-1.30); TOTAL PROTEIN 6.2 g/dL (6.4-8.2)
[2019-11-23] MEDS: PULMICORT NEB TX 0.5 MG NEB SCH ×2 (08:50→20:45)
[2019-11-23] MEDS: DIFLUCAN 200 MG IV PREMIX* 200 MG/100 ML BAG IV SCH (09:04)
[2019-11-23] MEDS: LOPRESSOR TAB 25 MG PO SCH (09:05)
[2019-11-23] MEDS: DITROPAN TAB 5 MG PO SCH (09:05)
[2019-11-23] MEDS: ASPIRIN EC 81 MG PO SCH (09:05)
[2019-11-23] MEDS: HYTRIN PO SCH ×2 (09:05→21:05)
[2019-11-23] MEDS: ARICEPT TAB 10 MG PO SCH (09:05)
[2019-11-23] MEDS: SYNTHROID 25 mcg TAB PO SCH (09:05)
[2019-11-23] MEDS: LOVENOX INJ 80 MG SYR SC SCH ×2 (09:06→21:05)
[2019-11-23] MEDS: AVODART PO SCH (09:07)
[2019-11-23] MEDS: ULTRAM PO SCH ×3 (09:10→21:05)
[2019-11-23] MEDS: COUMADIN TAB 5 MG PO SCH (20:52)
[2019-11-24] MEDS: DUONEB 0.5 MG/3 MG (3 mL) NEB SCH ×4 (00:35→17:10)
[2019-11-24] MEDS: ULTRAM PO SCH ×4 (04:36→20:49)
[2019-11-24] MEDS: NS 1000 ML 1,000 ML IV SCH ×2 (05:19→21:26)
[2019-11-24] MEDS: ZOSYN VIAL 3.375 GRAMS 3.375 G in NS 100 ML IV + SPIKE MINIBAG* 100 ML IV SCH ×3 (05:20→21:25)
--- NOTE | 2019-11-24 06:00 | RAD ---
HISTORYShortness of breathSTUDYCHEST, 1 [id number] silhouette is enlarged, though pulmonary vasculature is not significantly congested. Right basilar airspace opacity is similar. Left basilar volume loss is noted. No new consolidation. No evidence of pneumothorax.IMPRESSIONStable right basilar airspace opacity.Electronically signed by: Negrito Reddy (Nov 24, 2019 05:58:58)
[2019-11-24 06:26] LABS: BASOPHILS # (AUTO) 0.1 X10^3/uL (0.0-0.1); BASOPHILS % (AUTO) 0.7 % (0.2-1.0); EOSINOPHILS # (AUTO) 0.3 x10^3/uL (0.0-0.2); EOSINOPHILS % (AUTO) 3.4 % (0.9-2.9); HEMATOCRIT 32.1 % (42.0-54.0); LYMPHOCYTES # (AUTO) 1.6 X10^3/uL (1.3-2.9); LYMPHOCYTES % (AUTO) 15.7 % (21.0-51.0); MEAN CORPUSCULAR HEMOGLOBIN 32.1 pg (27.0-34.0); MEAN CORPUSCULAR HGB CONC 34.1 g/dL (33.0-35.0); MEAN PLATELET VOLUME 8.2 fL (7.4-11.0); MONOCYTES # (AUTO) 0.8 x10^3/uL (0.3-0.8); MONOCYTES % (AUTO) 7.4 % (0.0-13.0); NEUTROPHILS # (AUTO) 7.5 x10^3/uL (2.2-4.8); NEUTROPHILS % (AUTO) 72.8 % (42.0-75.0); PLATELET COUNT 278 X10^3/uL (150.0-450.0); RED BLOOD COUNT 3.41 X10^6/uL (4.7-6.0); RED CELL DISTRIBUTION WIDTH 14.4 % (11.6-16.5); WHITE BLOOD COUNT 10.3 X10^3/uL (3.6-10.0)
[2019-11-24 06:37] LABS: ALBUMIN 2.4 g/dL (3.4-5.0); CALCIUM 8.2 mg/dL (8.5-10.1); CARBON DIOXIDE 21.2 mmol/L (21-32); COR CA(FOR HYPOALB) 9.5 mg/dL (8.5-10.1); CREATININE 1.74 mg/dL (0.70-1.30); TOTAL PROTEIN 6.8 g/dL (6.4-8.2)
[2019-11-24] MEDS: PULMICORT NEB TX 0.5 MG NEB SCH ×2 (08:20→21:05)
[2019-11-24] MEDS: HYTRIN PO SCH ×2 (08:29→20:51)
[2019-11-24] MEDS: LOPRESSOR TAB 25 MG PO SCH (08:29)
[2019-11-24] MEDS: ARICEPT TAB 10 MG PO SCH (08:29)
[2019-11-24] MEDS: ASPIRIN EC 81 MG PO SCH (08:29)
[2019-11-24] MEDS: SYNTHROID 25 mcg TAB PO SCH (08:30)
[2019-11-24] MEDS: LOVENOX INJ 80 MG SYR SC SCH ×2 (08:31→20:48)
[2019-11-24] MEDS: DIFLUCAN 200 MG IV PREMIX* 200 MG/100 ML BAG IV SCH ×2 (08:31→10:01)
[2019-11-24] MEDS ORDERED: ROBITUSSIN DM ONE (08:35)
[2019-11-24] MEDS ORDERED: TUSSIONEX PENNKINETIC SUSP ONE (08:36)
[2019-11-24] MEDS: TUSSIONEX PENNKINETIC SUSP PO SCH ×3 (08:37→20:46)
[2019-11-24] MEDS: AVODART PO SCH (08:37)
[2019-11-24] MEDS: ROBITUSSIN DM PO SCH ×5 (08:37→20:49)
[2019-11-24] MEDS: DITROPAN TAB 5 MG PO SCH (08:39)
--- NOTE | 2019-11-24 15:55 | PCM.PROG ---
Progress Note - Progress Note for Day of Date of Exam: 11/22/19 - Subjective Subjective: IS BEING TREATED FOR ACUTE BRONCHITIS AND ALTERED MENTAL STATUS. TODAY, HE IS ALERT AND ORIENTED, LYING IN BED ON MORNING ROUNDS. HE CONTINUES WITH COMPLAINTS OF A PRODUCTIVE COUGH, SHORTNESS OF BREATH, RUQ ABDOMINAL PAIN, AND WEAKNESS. HE ALSO REPORTS DIFFICULTY URINATING. ON EX AMINATION, HEART IS REGULAR IN RATE AND RHYTHM. BILATERAL LUNGS ARE NOTED WITH DIMINISHED LUNG SOUNDS THROUGHOUT. ABDOMEN IS ROUND, SOFT, AND NOTED WITH RUQ TENDERNESS. HIS VITALS THIS MORNING ARE: 98.1-90-20-92%NC-182/94. LABS WERE OBTAINED. ABNORMAL LAB VALUES INCLUDE THE FOLLOWING: WBC 10.7, RBC 3.96, HGB 12.6, HCT 37.1, CREATININE 1.40, ALK PHOS 44, ALBUMIN 2.5, GLOBULIN 4.6. BLOOD AND SPUTUM CULTURES ARE PENDING. AN ABDOMEN/PELVIS CT WITH CONTRAST WAS OBTAINED YESTERDAY AND REVEALED: 1. Partially visualized pulmonary emboli seen in the right lower lobe that appear acute. Consider dedicated CTA of the chest if indicated. 2. Small right pleural effusion and bibasilar atelectasis. 3. Scatt ered air-fluid levels within the colon suggesting nonspecific enteritis or other diarrheal state. 4. Heterogeneous thickening and trabeculation of the urinary bladder wall with small bladder diverticula that could be due to neurogenic bladder or other bladder dysfunction. Urologic follow-up recommended however to exclude underlying bladder lesion. A CHEST CTA WAS OBTAINED THIS MORNING AND REVEALED: 1. Multiple pulmonary emboli in the right upper, middle, and lower lobes. 2. Wedge-shaped opacity in the right middle lobe suggestive of pulmonary infarct. 3. Small right pleural effusion and right basilar atelectasis. 4. Aneurysmal dilation of the ascending thoracic aorta measuring 4.3 cm. HE IS CURRENTLY RECEIVING NS AT 75 ML/HR, ZOSYN 3.375G IV TID, DIFLUCAN 200MG IV DAILY, RESPIRATORY TX, LOVENOX, SUPPLEMENTAL OXYGEN, AND HOME MEDICATIONS WERE RESUMED. WE INCREASED THE LOVENOX TO 80MG SC BID. WE WILL ALSO START AVODART 0.5MG PO DAILY AND TERAZOSIN 2MG PO BID. OTHERWISE, WE WILL FOLLOW UP WITH AM LABS AND CONTINUE TO MONITOR. - Past Medical Family Social History Past Med/Fam/Surg Hx: No changes since H&P Allergies: Allergies No Known Drug Allergies Allergy (Verified 11/17/19 08:56) - Review of Systems ROS: No change since H&P - Vital Signs and I&O's Vital Signs: Temperature 98.3 F Pulse Rate [Left Brachial] 102 Pulse Rate 85 Respiratory Rate 18 Blood Pressure [Right Arm] 134/75 Blood Pressure [Left Arm] 94/56 Blood Pressure 137/78 O2 Sat by Pulse Oximetry 96 Intake and Output: Intake & Output 11/22/19 11/23/19 11/24/19 11/25/19 11:59 11:59 11:59 11:59 Intake Total 1670 / 1670 1815 / 1815 2580 / 2580 240 / 240 Output Total 50 / 50 100 / 100 Balance 1670 / 1670 1815 / 1815 2530 / 2530 140 / 140 - Physical Exam Oriented: Person Eyes: Normal Ear: Normal Nose: Normal Throat: Normal Respiratory: Generalized, Wheezes Cardiovascular: Tachycardia. negative: S3, S4, Murmur : Normal Auscultation: Bowel Sounds: Normal Palpation: Normal Tenderness: RUQ, Mild. negative: Rebound, Guarding, Rigidity Skin: Normal Musculoskeletal: Normal Psychiatric: Normal Mood Description: Calm Affect: Normal Speech Pattern: Clear, Appropriate - Laboratory and Diagnostics Result Diagrams: 11/24/19 05:10 11/24/19 05:10 Labs: 11/19/19 06:34 Sputum - Expectorated Sputum Sputum Culture - Final 11/19/19 06:34 Sputum - Expectorated Sputum - Final 11/18/19 23:39 Blood Blood Culture - Preliminary 11/18/19 22:50 Blood Blood Culture - Preliminary Laboratory WBC 10.3 X10^3/uL (3.6-10.0) H 11/24/19 05:10 RBC 3.41 X10^6/uL (4.7-6.0) L 11/24/19 05:10 Hgb 11.0 g/dL (13.5-18.0) L 11/24/19 05:10 Hct 32.1 % (42.0-54.0) L 11/24/19 05:10 MCV 94.0 fL (80.0-100.0) 11/24/19 05:10 MCH 32.1 pg (27.0-34.0) 11/24/19 05:10 MCHC 34.1 g/dL (33.0-35.0) 11/24/19 05:10 RDW 14.4 % (11.6-16.5) 11/24/19 05:10 Plt Count 278 X10^3/uL (150.0-450.0) 11/24/19 05:10 MPV 8.2 fL (7.4-11.0) 11/24/19 05:10 Neut % (Auto) 72.8 % (42.0-75.0) 11/24/19 05:10 Lymph % (Auto) 15.7 % (21.0-51.0) L 11/24/19 05:10 [place] % (Auto) 7.4 % (0.0-13.0) 11/24/19 05:10 Eos % (Auto) 3.4 % (0.9-2.9) H 11/24/19 05:10 Baso % (Auto) 0.7 % (0.2-1.0) 11/24/19 05:10 Neut # (Auto) 7.5 x10^3/uL (2.2-4.8) H 11/24/19 05:10 Lymph # (Auto) 1.6 X10^3/uL (1.3-2.9) 11/24/19 05:10 [place] # (Auto) 0.8 x10^3/uL (0.3-0.8) 11/24/19 05:10 Eos # (Auto) 0.3 x10^3/uL (0.0-0.2) H 11/24/19 05:10 Baso # (Auto) 0.1 X10^3/uL (0.0-0.1) 11/24/19 05:10 Absolute Nucleated RBC 0.0 /100WBC 11/24/19 05:10 PT 15.2 SECONDS (11.8-14.3) 11/24/19 05:10 INR Target Range - 11/24/19 05:10 INR 1.20 (0.8-1.3) 11/24/19 05:10 Sodium 137 mmol/L (136-145) 11/24/19 05:10 Corrected Sodium 138 mmol/L (136-145) 11/24/19 05:10 Potassium 3.6 mmol/L (3.5-5.1) 11/24/19 05:10 Chloride 105 mmol/L (98-107) 11/24/19 05:10 Carbon Dioxide 21.2 mmol/L (21-32) 11/24/19 05:10 BUN 8 mg/dL (7-18) 11/24/19 05:10 Creatinine 1.74 mg/dL (0.70-1.30) H 11/24/19 05:10 Est GFR (MDRD) Af Amer 49 (>60) L 11/24/19 05:10 Est GFR (MDRD) Non-Af 40 (>60) L 11/24/19 05:10 Glucose 126 mg/dL (65-99) H 11/24/19 05:10 Lactic Acid 0.8 mmol/L (0.4-2.0) 11/18/19 22:50 Calcium 8.2 mg/dL (8.5-10.1) L 11/24/19 05:10 Corrected Calcium 9.5 mg/dL (8.5-10.1) 11/24/19 05:10 Magnesium 1.9 mg/dL (1.7-2.9) 11/21/19 06:43 Total Bilirubin 0.40 mg/dL (0.2-1.0) 11/24/19 05:10 AST 34 Units/L (15-37) 11/24/19 05:10 ALT 25 Units/L (12-78) 11/24/19 05:10 Alkaline Phosphatase 25 Units/L (46-116) L 11/24/19 05:10 Creatine Kinase 129 Units/L (39-308) 11/21/19 18:05 CK-MB (CK-2) 3.1 ng/mL (0-4.0) 11/21/19 18:05 CK/CKMB % Calc 2.4 % (<4) 11/21/19 18:05 Troponin I < 0.02 ng/mL (0-1.5) 11/21/19 18:05 Total Protein 6.8 g/dL (6.4-8.2) 11/24/19 05:10 Albumin 2.4 g/dL (3.4-5.0) L 11/24/19 05:10 Globulin 4.4 g/dL (2.5-4.5) 11/24/19 05:10 Albumin/Globulin Ratio 0.5 Ratio (1.1-2.1) L 11/24/19 05:10 Specimen Type Clean catch urine 11/18/19 21:30 Urine Color Dark yellow (YELLOW) 11/18/19 21:30 Urine Appearance Slightly hazy (CLEAR) 11/18/19 21:30 Urine pH 5.0 (5.0 - 8.0) 11/18/19 21:30 Ur Specific [place] 1.020 (1.000-1.030) 11/18/19 21:30 Urine Protein 2+ (NEGATIVE) 11/18/19 21:30 Urine Glucose (UA) Negative (NEGATIVE) 11/18/19 21:30 Urine Ketones 2+ (NEGATIVE) 11/18/19 21:30 Urine Occult Blood 4+ (NEGATIVE) 11/18/19 21:30 Urine Nitrite Negative (NEGATIVE) 11/18/19 21:30 Urine Bilirubin Negative (NEGATIVE) 11/18/19 21:30 Urine Urobilinogen Normal (NORMAL) 11/18/19 21:30 Ur Leukocyte Esterase Negative (NEGATIVE) 11/18/19 21:30 Urine RBC 3-5 /HPF (0-3) A 11/18/19 21:30 Urine WBC None seen /HPF (0-5) 11/18/19 21:30 Ur Squamous Epith Cells Rare /HPF (NEGATIVE) 11/18/19 21:30 Urine Bacteria Negative /HPF (NEGATIVE) 11/18/19 21:30 Urine Mucus Few /HPF (NEGATIVE) 11/18/19 16:51 Ur Culture Indicated? No/not indicated 11/18/19 21:30 - Plan (1) Pulmonary emboli Status: Acute Qualifiers: Pulmonary embolism type: multiple subsegmental (without acute cor pulmonale) Qualified Code(s): I26.94 - Multiple subsegmental pulmonary emboli without acute cor pulmonale Plan: LOVENOX 80MG SC BID, CONTINUE TO MONITOR (2) Acute bronchitis Status: Acute Qualifiers: Bronchitis organism: unspecified organism Qualified Code(s): J20.9 - Acute bronchitis, unspecified Plan: NS AT 75 ML/HR, ZOSYN 3.375G IV TID, RESPIRATORY TX, LOVENOX, SUPPLEMENTAL OXYGEN, AND HOME MEDICATIONS WERE RESUMED, FOLLOW UP WITH AM LABS AND CHEST XRAY (3) Altered mental status Status: Acute Qualifiers: Altered mental status type: transient alteration of awareness Qualified Code(s): R40.4 - Transient alteration of awareness (4) Abdominal pain Status: Acute Qualifiers: Abdominal location: right upper quadrant Qualified Code(s): R10.11 - Right upper quadrant pain Plan: ABDOMEN/PELVIS CT WITH CONTRAST, CONTINUE TO MONITOR. (5) Chest pain Status: Acute Qualifiers: Chest pain type: unspecified Qualified Code(s): R07.9 - Chest pain, unspecified Plan: SERIAL CARDIAC ENZYMES AND EKGS, CONTINUE TO MONITOR
--- NOTE | 2019-11-24 18:02 | PCM.PROG ---
Progress Note - Progress Note for Day of Date of Exam: 11/23/19 - Subjective Subjective: IS BEING TREATED FOR MULTIPLE PULMONARY EMBOLI, ACUTE BRONCHITIS AND ALTERED MENTAL STATUS. TODAY, HE IS ALERT AND ORIENTED, LYING IN BED ON MORNING ROUNDS. HE CONTINUES WITH COMPLAINTS OF A PRODUCTIVE COUGH, SHORTNESS OF BREATH, MILD RUQ ABDOMINAL PAIN, AND WEAKNESS. ON EXAMINATION, HEART IS REGULAR IN RATE AND RHYTHM. BILATERAL LUNGS ARE NOTED WITH DIMINISHED LUNG SOUNDS THROUGHOUT. ABDOMEN IS ROUND, SOFT, AND NOTED WITH RUQ TENDERNESS. HIS VITALS THIS MORNING ARE: 98.4-111-20-95%-136/70. LABS WERE OBTAINED. ABNORMAL LAB VALUES INCLUDE THE FOLLOWING: RBC 3.35, HGB 10.9, HCT 31.4, CREATININE 1.60, GLUCOSE 115, CALCIUM 8.1, ALK PHOS 25, TOTAL PROTEIN 6.2, ALBUMIN 2.2. A CHEST XRAY WAS OBTAINED TODAY AND REVEALED: Stable cardiomegaly, aortic dilatation with areas of linear atelectasis persisting at the right lung base. There is no new consolidation, edema or developing pleural fluid. HE IS CURRENTLY RECEIVING NS AT 75 ML/HR, ZOSYN 3.375G IV TID, DIFLUCAN 200MG IV K[place] LY, RESPIRATORY TX, LOVENOX 80MG SC BID, AVODART 0.5MG PO DAILY, TERAZOSIN 2MG PO BID, SUPPLEMENTAL OXYGEN, AND HOME MEDICATIONS WERE RESUMED. TODAY, WE WILL START COUMADIN 5MG PO HS AND MAKE TRAMADOL SCHEDULED. OTHERWISE, WE WILL FOLLOW UP WITH AM LABS AND CONTINUE TO MONITOR. - Past Medical Family Social History Past Med/Fam/Surg Hx: No changes since H&P Allergies: Allergies No Known Drug Allergies Allergy (Verified 11/17/19 08:56) - Review of Systems ROS: No change since H&P - Vital Signs and I&O's Vital Signs: Temperature 97.9 F Pulse Rate [Left Brachial] 86 Pulse Rate 85 Respiratory Rate 20 Blood Pressure [Right Arm] 133/88 Blood Pressure [Left Arm] 94/56 Blood Pressure 137/78 O2 Sat by Pulse Oximetry 95 Intake and Output: Intake & Output 11/22/19 11/23/19 11/24/19 11/25/19 11:59 11:59 11:59 11:59 Intake Total 1670 / 1670 1815 / 1815 2580 / 2580 240 / 240 Output Total 50 / 50 100 / 100 Balance 1670 / 1670 1815 / 1815 2530 / 2530 140 / 140 - Physical Exam Oriented: Person Eyes: Normal Ear: Normal Nose: Normal Throat: Normal Respiratory: Generalized, Wheezes Cardiovascular: Tachycardia. negative: S3, S4, Murmur : Normal Auscultation: Bowel Sounds: Normal Palpation: Normal Tenderness: RUQ, Mild. negative: Rebound, Guarding, Rigidity Skin: Normal Musculoskeletal: Normal Psychiatric: Normal Mood Description: Calm Affect: Normal Speech Pattern: Clear, Appropriate - Laboratory and Diagnostics Result Diagrams: 11/24/19 05:10 11/24/19 05:10 Labs: 11/19/19 06:34 Sputum - Expectorated Sputum Sputum Culture - Final 11/19/19 06:34 Sputum - Expectorated Sputum - Final 11/18/19 23:39 Blood Blood Culture - Preliminary 11/18/19 22:50 Blood Blood Culture - Preliminary Laboratory WBC 10.3 X10^3/uL (3.6-10.0) H 11/24/19 05:10 RBC 3.41 X10^6/uL (4.7-6.0) L 11/24/19 05:10 Hgb 11.0 g/dL (13.5-18.0) L 11/24/19 05:10 Hct 32.1 % (42.0-54.0) L 11/24/19 05:10 MCV 94.0 fL (80.0-100.0) 11/24/19 05:10 MCH 32.1 pg (27.0-34.0) 11/24/19 05:10 MCHC 34.1 g/dL (33.0-35.0) 11/24/19 05:10 RDW 14.4 % (11.6-16.5) 11/24/19 05:10 Plt Count 278 X10^3/uL (150.0-450.0) 11/24/19 05:10 MPV 8.2 fL (7.4-11.0) 11/24/19 05:10 Neut % (Auto) 72.8 % (42.0-75.0) 11/24/19 05:10 Lymph % (Auto) 15.7 % (21.0-51.0) L 11/24/19 05:10 [place] % (Auto) 7.4 % (0.0-13.0) 11/24/19 05:10 Eos % (Auto) 3.4 % (0.9-2.9) H 11/24/19 05:10 Baso % (Auto) 0.7 % (0.2-1.0) 11/24/19 05:10 Neut # (Auto) 7.5 x10^3/uL (2.2-4.8) H 11/24/19 05:10 Lymph # (Auto) 1.6 X10^3/uL (1.3-2.9) 11/24/19 05:10 [place] # (Auto) 0.8 x10^3/uL (0.3-0.8) 11/24/19 05:10 Eos # (Auto) 0.3 x10^3/uL (0.0-0.2) H 11/24/19 05:10 Baso # (Auto) 0.1 X10^3/uL (0.0-0.1) 11/24/19 05:10 Absolute Nucleated RBC 0.0 /100WBC 11/24/19 05:10 PT 15.2 SECONDS (11.8-14.3) 11/24/19 05:10 INR Target Range - 11/24/19 05:10 INR 1.20 (0.8-1.3) 11/24/19 05:10 Sodium 137 mmol/L (136-145) 11/24/19 05:10 Corrected Sodium 138 mmol/L (136-145) 11/24/19 05:10 Potassium 3.6 mmol/L (3.5-5.1) 11/24/19 05:10 Chloride 105 mmol/L (98-107) 11/24/19 05:10 Carbon Dioxide 21.2 mmol/L (21-32) 11/24/19 05:10 BUN 8 mg/dL (7-18) 11/24/19 05:10 Creatinine 1.74 mg/dL (0.70-1.30) H 11/24/19 05:10 Est GFR (MDRD) Af Amer 49 (>60) L 11/24/19 05:10 Est GFR (MDRD) Non-Af 40 (>60) L 11/24/19 05:10 Glucose 126 mg/dL (65-99) H 11/24/19 05:10 Lactic Acid 0.8 mmol/L (0.4-2.0) 11/18/19 22:50 Calcium 8.2 mg/dL (8.5-10.1) L 11/24/19 05:10 Corrected Calcium 9.5 mg/dL (8.5-10.1) 11/24/19 05:10 Magnesium 1.9 mg/dL (1.7-2.9) 11/21/19 06:43 Total Bilirubin 0.40 mg/dL (0.2-1.0) 11/24/19 05:10 AST 34 Units/L (15-37) 11/24/19 05:10 ALT 25 Units/L (12-78) 11/24/19 05:10 Alkaline Phosphatase 25 Units/L (46-116) L 11/24/19 05:10 Creatine Kinase 129 Units/L (39-308) 11/21/19 18:05 CK-MB (CK-2) 3.1 ng/mL (0-4.0) 11/21/19 18:05 CK/CKMB % Calc 2.4 % (<4) 11/21/19 18:05 Troponin I < 0.02 ng/mL (0-1.5) 11/21/19 18:05 Total Protein 6.8 g/dL (6.4-8.2) 11/24/19 05:10 Albumin 2.4 g/dL (3.4-5.0) L 11/24/19 05:10 Globulin 4.4 g/dL (2.5-4.5) 11/24/19 05:10 Albumin/Globulin Ratio 0.5 Ratio (1.1-2.1) L 11/24/19 05:10 Specimen Type Clean catch urine 11/18/19 21:30 Urine Color Dark yellow (YELLOW) 11/18/19 21:30 Urine Appearance Slightly hazy (CLEAR) 11/18/19 21:30 Urine pH 5.0 (5.0 - 8.0) 11/18/19 21:30 Ur Specific [place] 1.020 (1.000-1.030) 11/18/19 21:30 Urine Protein 2+ (NEGATIVE) 11/18/19 21:30 Urine Glucose (UA) Negative (NEGATIVE) 11/18/19 21:30 Urine Ketones 2+ (NEGATIVE) 11/18/19 21:30 Urine Occult Blood 4+ (NEGATIVE) 11/18/19 21:30 Urine Nitrite Negative (NEGATIVE) 11/18/19 21:30 Urine Bilirubin Negative (NEGATIVE) 11/18/19 21:30 Urine Urobilinogen Normal (NORMAL) 11/18/19 21:30 Ur Leukocyte Esterase Negative (NEGATIVE) 11/18/19 21:30 Urine RBC 3-5 /HPF (0-3) A 11/18/19 21:30 Urine WBC None seen /HPF (0-5) 11/18/19 21:30 Ur Squamous Epith Cells Rare /HPF (NEGATIVE) 11/18/19 21:30 Urine Bacteria Negative /HPF (NEGATIVE) 11/18/19 21:30 Urine Mucus Few /HPF (NEGATIVE) 11/18/19 16:51 Ur Culture Indicated? No/not indicated 11/18/19 21:30 - Plan (1) Pulmonary emboli Status: Acute Qualifiers: Pulmonary embolism type: multiple subsegmental (without acute cor pulmonale) Qualified Code(s): I26.94 - Multiple subsegmental pulmonary emboli without acute cor pulmonale Plan: LOVENOX 80MG SC BID, COUMADIN 5MG PO HS, CONTINUE TO MONITOR (2) Acute bronchitis Status: Acute Qualifiers: Bronchitis organism: unspecified organism Qualified Code(s): J20.9 - Acute bronchitis, unspecified Plan: NS AT 75 ML/HR, ZOSYN 3.375G IV TID, RESPIRATORY TX, LOVENOX, SUPPLEMENTAL OXYGEN, AND HOME MEDICATIONS WERE RESUMED, FOLLOW UP WITH AM LABS AND CHEST XRAY (3) Altered mental status Status: Acute Qualifiers: Altered mental status type: transient alteration of awareness Qualified Code(s): R40.4 - Transient alteration of awareness (4) Abdominal pain Status: Acute Qualifiers: Abdominal location: right upper quadrant Qualified Code(s): R10.11 - Right upper quadrant pain Plan: ABDOMEN/PELVIS CT WITH CONTRAST, CONTINUE TO MONITOR. (5) Chest pain Status: Acute Qualifiers: Chest pain type: unspecified Qualified Code(s): R07.9 - Chest pain, unspecified Plan: SERIAL CARDIAC ENZYMES AND EKGS, CONTINUE TO MONITOR
[2019-11-24] MEDS: COUMADIN TAB 5 MG PO SCH (20:47)
--- NOTE | 2019-11-24 23:00 | PCM.PROG ---
Progress Note - Progress Note for Day of Date of Exam: 11/24/19 - Subjective Subjective: IS BEING TREATED FOR MULTIPLE PULMONARY EMBOLI, BRONCHOPNEUMONIA, AND ALTERED MENTAL STATUS. TODAY, HE IS ALERT AND ORIENTED, LYING IN BED ON MORNING ROUNDS. HE CONTINUES WITH COMPLAINTS OF A PRODUCTIVE COUGH, SHORTNESS OF BREATH, AND WEAKNESS. ON EXAMINATION, HEART IS REGULAR IN RATE AND RHYTHM. BILATERAL LUNGS ARE NOTED WITH DIMINISHED LUNG SOUNDS THROUGHOUT. ABDOMEN IS ROUND, SOFT, AND NOTED WITH RUQ TENDERNESS. HIS VITALS THIS MORNING ARE: 98.3-102-20-95%-134/75. LABS WERE OBTAINED. ABNORMAL LAB VALUES INCLUDE THE FOLLOWING: WBC 10.3, RBC 3.41, HGB 11.0, HCT 32.1, CREATININE 1.74, GLUCOSE 126, CALCIUM 8.2, ALK PHOS 25, ALBUMIN 2.4. A CHEST XRAY WAS OBTAINED TODAY AND REVEALED: Stable right basilar airspace opacity. HE IS CURRENTLY RECEIVING NS AT 75 ML/HR, ZOSYN 3.375G IV TID, DIFLUCAN 200MG IV DAILY, RESPIRATORY TX, LOVENOX 80MG SC BID, COUMADIN 5MG PO HS, AVODART 0.5MG PO DAILY, TERAZOSIN 2MG PO BID, SUPPLEMENTAL OXYGEN, AND HOME MEDICATIONS WERE RESUMED. WE WILL CONTINUE WITH CURRENT PLAN OF CARE TODAY. OTHERWISE, WE WILL FOLLOW UP WITH AM LABS AND CONTINUE TO MONITOR. - Past Medical Family Social History Past Med/Fam/Surg Hx: No changes since H&P Allergies: Allergies No Known Drug Allergies Allergy (Verified 11/17/19 08:56) - Review of Systems ROS: No change since H&P - Vital Signs and I&O's Vital Signs: Temperature 97.7 F Pulse Rate [Left Brachial] 98 Pulse Rate 102 Respiratory Rate 18 Blood Pressure [Right Arm] 156/97 Blood Pressure [Left Arm] 94/56 Blood Pressure 137/78 O2 Sat by Pulse Oximetry 92 Intake and Output: Intake & Output 11/22/19 11/23/19 11/24/19 11/25/19 11:59 11:59 11:59 11:59 Intake Total 1670 / 1670 1815 / 1815 2580 / 2580 240 / 240 Output Total 50 / 50 100 / 100 Balance 1670 / 1670 1815 / 1815 2530 / 2530 140 / 140 - Physical Exam Oriented: Person Eyes: Normal Ear: Normal Nose: Normal Throat: Normal Respiratory: Generalized, Wheezes Cardiovascular: Tachycardia. negative: S3, S4, Murmur : Normal Auscultation: Bowel Sounds: Normal Palpation: Normal Tenderness: RUQ, Mild. negative: Rebound, Guarding, Rigidity Skin: Normal Musculoskeletal: Normal Psychiatric: Normal Mood Description: Calm Affect: Normal Speech Pattern: Clear, Appropriate - Laboratory and Diagnostics Result Diagrams: 11/24/19 05:10 11/24/19 05:10 Labs: 11/19/19 06:34 Sputum - Expectorated Sputum Sputum Culture - Final 11/19/19 06:34 Sputum - Expectorated Sputum - Final 11/18/19 23:39 Blood Blood Culture - Preliminary 11/18/19 22:50 Blood Blood Culture - Preliminary Laboratory WBC 10.3 X10^3/uL (3.6-10.0) H 11/24/19 05:10 RBC 3.41 X10^6/uL (4.7-6.0) L 11/24/19 05:10 Hgb 11.0 g/dL (13.5-18.0) L 11/24/19 05:10 Hct 32.1 % (42.0-54.0) L 11/24/19 05:10 MCV 94.0 fL (80.0-100.0) 11/24/19 05:10 MCH 32.1 pg (27.0-34.0) 11/24/19 05:10 MCHC 34.1 g/dL (33.0-35.0) 11/24/19 05:10 RDW 14.4 % (11.6-16.5) 11/24/19 05:10 Plt Count 278 X10^3/uL (150.0-450.0) 11/24/19 05:10 MPV 8.2 fL (7.4-11.0) 11/24/19 05:10 Neut % (Auto) 72.8 % (42.0-75.0) 11/24/19 05:10 Lymph % (Auto) 15.7 % (21.0-51.0) L 11/24/19 05:10 [place] % (Auto) 7.4 % (0.0-13.0) 11/24/19 05:10 Eos % (Auto) 3.4 % (0.9-2.9) H 11/24/19 05:10 Baso % (Auto) 0.7 % (0.2-1.0) 11/24/19 05:10 Neut # (Auto) 7.5 x10^3/uL (2.2-4.8) H 11/24/19 05:10 Lymph # (Auto) 1.6 X10^3/uL (1.3-2.9) 11/24/19 05:10 [place] # (Auto) 0.8 x10^3/uL (0.3-0.8) 11/24/19 05:10 Eos # (Auto) 0.3 x10^3/uL (0.0-0.2) H 11/24/19 05:10 Baso # (Auto) 0.1 X10^3/uL (0.0-0.1) 11/24/19 05:10 Absolute Nucleated RBC 0.0 /100WBC 11/24/19 05:10 PT 15.2 SECONDS (11.8-14.3) 11/24/19 05:10 INR Target Range - 11/24/19 05:10 INR 1.20 (0.8-1.3) 11/24/19 05:10 Sodium 137 mmol/L (136-145) 11/24/19 05:10 Corrected Sodium 138 mmol/L (136-145) 11/24/19 05:10 Potassium 3.6 mmol/L (3.5-5.1) 11/24/19 05:10 Chloride 105 mmol/L (98-107) 11/24/19 05:10 Carbon Dioxide 21.2 mmol/L (21-32) 11/24/19 05:10 BUN 8 mg/dL (7-18) 11/24/19 05:10 Creatinine 1.74 mg/dL (0.70-1.30) H 11/24/19 05:10 Est GFR (MDRD) Af Amer 49 (>60) L 11/24/19 05:10 Est GFR (MDRD) Non-Af 40 (>60) L 11/24/19 05:10 Glucose 126 mg/dL (65-99) H 11/24/19 05:10 Lactic Acid 0.8 mmol/L (0.4-2.0) 11/18/19 22:50 Calcium 8.2 mg/dL (8.5-10.1) L 11/24/19 05:10 Corrected Calcium 9.5 mg/dL (8.5-10.1) 11/24/19 05:10 Magnesium 1.9 mg/dL (1.7-2.9) 11/21/19 06:43 Total Bilirubin 0.40 mg/dL (0.2-1.0) 11/24/19 05:10 AST 34 Units/L (15-37) 11/24/19 05:10 ALT 25 Units/L (12-78) 11/24/19 05:10 Alkaline Phosphatase 25 Units/L (46-116) L 11/24/19 05:10 Creatine Kinase 129 Units/L (39-308) 11/21/19 18:05 CK-MB (CK-2) 3.1 ng/mL (0-4.0) 11/21/19 18:05 CK/CKMB % Calc 2.4 % (<4) 11/21/19 18:05 Troponin I < 0.02 ng/mL (0-1.5) 11/21/19 18:05 Total Protein 6.8 g/dL (6.4-8.2) 11/24/19 05:10 Albumin 2.4 g/dL (3.4-5.0) L 11/24/19 05:10 Globulin 4.4 g/dL (2.5-4.5) 11/24/19 05:10 Albumin/Globulin Ratio 0.5 Ratio (1.1-2.1) L 11/24/19 05:10 Specimen Type Clean catch urine 11/18/19 21:30 Urine Color Dark yellow (YELLOW) 11/18/19 21:30 Urine Appearance Slightly hazy (CLEAR) 11/18/19 21:30 Urine pH 5.0 (5.0 - 8.0) 11/18/19 21:30 Ur Specific [place] 1.020 (1.000-1.030) 11/18/19 21:30 Urine Protein 2+ (NEGATIVE) 11/18/19 21:30 Urine Glucose (UA) Negative (NEGATIVE) 11/18/19 21:30 Urine Ketones 2+ (NEGATIVE) 11/18/19 21:30 Urine Occult Blood 4+ (NEGATIVE) 11/18/19 21:30 Urine Nitrite Negative (NEGATIVE) 11/18/19 21:30 Urine Bilirubin Negative (NEGATIVE) 11/18/19 21:30 Urine Urobilinogen Normal (NORMAL) 11/18/19 21:30 Ur Leukocyte Esterase Negative (NEGATIVE) 11/18/19 21:30 Urine RBC 3-5 /HPF (0-3) A 11/18/19 21:30 Urine WBC None seen /HPF (0-5) 11/18/19 21:30 Ur Squamous Epith Cells Rare /HPF (NEGATIVE) 11/18/19 21:30 Urine Bacteria Negative /HPF (NEGATIVE) 11/18/19 21:30 Urine Mucus Few /HPF (NEGATIVE) 11/18/19 16:51 Ur Culture Indicated? No/not indicated 11/18/19 21:30 - Plan (1) Pulmonary emboli Status: Acute Qualifiers: Pulmonary embolism type: multiple subsegmental (without acute cor pulmonale) Qualified Code(s): I26.94 - Multiple subsegmental pulmonary emboli without acute cor pulmonale Plan: LOVENOX 80MG SC BID, COUMADIN 5MG PO HS, CONTINUE TO MONITOR (2) Bronchopneumonia Status: Acute Plan: NS AT 75 ML/HR, ZOSYN 3.375G IV TID, RESPIRATORY TX, LOVENOX, SUPPLEMENTAL OXYGEN, AND HOME MEDICATIONS WERE RESUMED, FOLLOW UP WITH AM LABS AND CHEST XRAY (3) Altered mental status Status: Acute Qualifiers: Altered mental status type: transient alteration of awareness Qualified Code(s): R40.4 - Transient alteration of awareness (4) Abdominal pain Status: Resolved Qualifiers: Abdominal location: right upper quadrant Qualified Code(s): R10.11 - Right upper quadrant pain (5) Chest pain Status: Resolved Qualifiers: Chest pain type: unspecified Qualified Code(s): R07.9 - Chest pain, unspecified
[2019-11-25] MEDS: DUONEB 0.5 MG/3 MG (3 mL) NEB SCH ×4 (00:58→16:56)
[2019-11-25] MEDS: ULTRAM PO SCH ×4 (04:00→21:30)
[2019-11-25] MEDS: ZOSYN VIAL 3.375 GRAMS 3.375 G in NS 100 ML IV + SPIKE MINIBAG* 100 ML IV SCH ×3 (05:40→21:28)
[2019-11-25 06:18] LABS: BASOPHILS # (AUTO) 0.1 X10^3/uL (0.0-0.1); BASOPHILS % (AUTO) 1.3 % (0.2-1.0); EOSINOPHILS # (AUTO) 0.4 x10^3/uL (0.0-0.2); EOSINOPHILS % (AUTO) 4.5 % (0.9-2.9); HEMATOCRIT 31.2 % (42.0-54.0); HEMOGLOBIN 10.7 g/dL (13.5-18.0); LYMPHOCYTES # (AUTO) 1.5 X10^3/uL (1.3-2.9); LYMPHOCYTES % (AUTO) 17.2 % (21.0-51.0); MEAN CORPUSCULAR HGB CONC 34.3 g/dL (33.0-35.0); MEAN CORPUSCULAR VOLUME 93.2 fL (80.0-100.0); MONOCYTES # (AUTO) 0.8 x10^3/uL (0.3-0.8); MONOCYTES % (AUTO) 8.8 % (0.0-13.0); NEUTROPHILS % (AUTO) 68.2 % (42.0-75.0); PLATELET COUNT 279 X10^3/uL (150.0-450.0); RED BLOOD COUNT 3.34 X10^6/uL (4.7-6.0); RED CELL DISTRIBUTION WIDTH 14.6 % (11.6-16.5); WHITE BLOOD COUNT 8.7 X10^3/uL (3.6-10.0)
[2019-11-25 06:35] LABS: ALANINE AMINOTRANSFERASE 39 Units/L (12-78); ALBUMIN 2.3 g/dL (3.4-5.0); ALKALINE PHOSPHATASE 23 Units/L (46-116); ASPARTATE AMINO TRANSFERASE 50 Units/L (15-37); BLOOD UREA NITROGEN 10 mg/dL (7-18); CALCIUM 8.1 mg/dL (8.5-10.1); CARBON DIOXIDE 20.7 mmol/L (21-32); CHLORIDE 107 mmol/L (98-107); COR CA(FOR HYPOALB) 9.5 mg/dL (8.5-10.1); CREATININE 1.72 mg/dL (0.70-1.30); SODIUM 138 mmol/L (136-145); TOTAL PROTEIN 6.7 g/dL (6.4-8.2); eGFR NON BLACK RACES 41 (>60)
[2019-11-25] MEDS: PULMICORT NEB TX 0.5 MG NEB SCH ×2 (08:13→20:30)
[2019-11-25] MEDS: AVODART PO SCH (09:00)
[2019-11-25] MEDS: LOPRESSOR TAB 25 MG PO SCH (09:15)
[2019-11-25] MEDS: ASPIRIN EC 81 MG PO SCH (09:15)
[2019-11-25] MEDS: DIFLUCAN 200 MG IV PREMIX* 200 MG/100 ML BAG IV SCH (09:15)
[2019-11-25] MEDS: DITROPAN TAB 5 MG PO SCH (09:16)
[2019-11-25] MEDS: HYTRIN PO SCH ×2 (09:16→21:31)
[2019-11-25] MEDS: SYNTHROID 25 mcg TAB PO SCH (09:16)
[2019-11-25] MEDS: LOVENOX INJ 80 MG SYR SC SCH ×2 (09:16→21:29)
[2019-11-25] MEDS: ROBITUSSIN DM PO SCH ×4 (09:17→21:31)
[2019-11-25] MEDS: ARICEPT TAB 10 MG PO SCH (09:19)
[2019-11-25] MEDS: TUSSIONEX PENNKINETIC SUSP PO SCH ×2 (09:19→21:31)
[2019-11-25] MEDS: NS 1000 ML 1,000 ML IV SCH (14:01)
[2019-11-25] MEDS: COUMADIN TAB 5 MG PO SCH (21:29)
[2019-11-26] MEDS: DUONEB 0.5 MG/3 MG (3 mL) NEB SCH ×4 (00:55→18:05)
[2019-11-26] MEDS: ULTRAM PO SCH ×4 (03:28→20:50)
[2019-11-26] MEDS: NS 1000 ML 1,000 ML IV SCH ×4 (03:28→23:48)
[2019-11-26] MEDS: ZOSYN VIAL 3.375 GRAMS 3.375 G in NS 100 ML IV + SPIKE MINIBAG* 100 ML IV SCH ×3 (05:33→22:00)
[2019-11-26 05:51] LABS: BASOPHILS # (AUTO) 0.1 X10^3/uL (0.0-0.1); BASOPHILS % (AUTO) 0.7 % (0.2-1.0); EOSINOPHILS # (AUTO) 0.4 x10^3/uL (0.0-0.2); EOSINOPHILS % (AUTO) 3.9 % (0.9-2.9); HEMOGLOBIN 10.7 g/dL (13.5-18.0); LYMPHOCYTES # (AUTO) 1.7 X10^3/uL (1.3-2.9); LYMPHOCYTES % (AUTO) 17.4 % (21.0-51.0); MEAN CORPUSCULAR HEMOGLOBIN 32.5 pg (27.0-34.0); MEAN CORPUSCULAR HGB CONC 34.4 g/dL (33.0-35.0); MEAN CORPUSCULAR VOLUME 94.4 fL (80.0-100.0); MEAN PLATELET VOLUME 7.8 fL (7.4-11.0); MONOCYTES # (AUTO) 0.9 x10^3/uL (0.3-0.8); MONOCYTES % (AUTO) 9.3 % (0.0-13.0); NEUTROPHILS # (AUTO) 6.7 x10^3/uL (2.2-4.8); NEUTROPHILS % (AUTO) 68.7 % (42.0-75.0); PLATELET COUNT 288 X10^3/uL (150.0-450.0); RED BLOOD COUNT 3.28 X10^6/uL (4.7-6.0); RED CELL DISTRIBUTION WIDTH 14.4 % (11.6-16.5); WHITE BLOOD COUNT 9.8 X10^3/uL (3.6-10.0)
[2019-11-26 06:15] LABS: ALANINE AMINOTRANSFERASE 44 Units/L (12-78); ALBUMIN 2.3 g/dL (3.4-5.0); ALKALINE PHOSPHATASE 23 Units/L (46-116); ASPARTATE AMINO TRANSFERASE 48 Units/L (15-37); BLOOD UREA NITROGEN 13 mg/dL (7-18); CALCIUM 8.1 mg/dL (8.5-10.1); CARBON DIOXIDE 21.1 mmol/L (21-32); CHLORIDE 108 mmol/L (98-107); COR CA(FOR HYPOALB) 9.5 mg/dL (8.5-10.1); CREATININE 1.81 mg/dL (0.70-1.30); SODIUM 139 mmol/L (136-145); TOTAL PROTEIN 6.7 g/dL (6.4-8.2); eGFR NON BLACK RACES 38 (>60)
[2019-11-26] MEDS: PULMICORT NEB TX 0.5 MG NEB SCH ×2 (09:18→21:38)
[2019-11-26] MEDS: HYTRIN PO SCH ×2 (09:52→20:41)
[2019-11-26] MEDS: ARICEPT TAB 10 MG PO SCH (09:52)
[2019-11-26] MEDS: LOVENOX INJ 80 MG SYR SC SCH ×2 (09:52→20:35)
[2019-11-26] MEDS: DITROPAN TAB 5 MG PO SCH (09:53)
[2019-11-26] MEDS: SYNTHROID 25 mcg TAB PO SCH (09:53)
[2019-11-26] MEDS: ASPIRIN EC 81 MG PO SCH (09:53)
[2019-11-26] MEDS: LOPRESSOR TAB 25 MG PO SCH (09:53)
[2019-11-26] MEDS: ROBITUSSIN DM PO SCH ×4 (09:54→20:41)
[2019-11-26] MEDS ORDERED: PHARMACY CONSULT - TPN XX SCH (10:00)
[2019-11-26] MEDS: ALBUMIN HUMAN 25%- 100 ML 100 ML IV SCH (10:13)
[2019-11-26] MEDS: TUSSIONEX PENNKINETIC SUSP PO SCH ×2 (10:15→20:42)
[2019-11-26] MEDS ORDERED: [UNRECOGNIZED DRUG - OTHER] IV SCH ×5 (11:00)
[2019-11-26] MEDS ORDERED: CLINIMIX IV SCH ×5 (11:00)
[2019-11-26] MEDS ORDERED: TRACE ELEMENTS IV SCH ×5 (11:00)
[2019-11-26] MEDS ORDERED: TPN ELECTROLYTES IV SCH ×5 (11:00)
--- NOTE | 2019-11-26 11:03 | PCM.PROG ---
Progress Note - Progress Note for Day of Date of Exam: 11/25/19 - Subjective Subjective: IS BEING TREATED FOR MULTIPLE PULMONARY EMBOLI, BRONCHOPNEUMONIA, AND ALTERED MENTAL STATUS. TODAY, HE IS ALERT AND ORIENTED, LYING IN BED ON MORNING ROUNDS. HE CONTINUES WITH COMPLAINTS OF A PRODUCTIVE COUGH, SHORTNESS OF BREATH, AND WEAKNESS. ON EXAMINATION, HEART IS REGULAR IN RATE AND RHYTHM. BILATERAL LUNGS ARE NOTED WITH DIMINISHED LUNG SOUNDS THROUGHOUT. ABDOMEN IS ROUND, SOFT, AND NOTED WITH RUQ TENDERNESS. HIS VITALS THIS MORNING ARE: 99.1-97-20-91%-146/92. LABS WERE OBTAINED. ABNORMAL LAB VALUES INCLUDE THE FOLLOWING: RBC 3.34, HGB 10.7, HCT 31.2, INR 1.33, CARBON DIOXIDE 20.7, CREATININE 1.72, CALCIUM 8.1, AST 50, ALK PHOS 23, ALBUMIN 2.3. HE IS CURRENTLY RECEIVING NS AT 75 ML/HR, ZOSYN 3.375G IV TID, DIFLUCAN 200MG IV DAILY, RESPIRATORY TX, LOVENOX 80MG SC BID, COUMADIN 5MG PO HS, AVODART 0.5MG PO DAILY, TERAZOSIN 2MG PO BID, SUPPLEMENTAL OXYGEN, AND HOME MEDICATIONS WERE RESUMED. WE WILL CONTINUE WITH CURRENT PLAN OF CARE TODAY. OTHERWISE, WE WILL FOLLOW UP WITH AM LABS AND CONTINUE TO MONITOR. - Past Medical Family Social History Past Med/Fam/Surg Hx: No changes since H&P Allergies: Allergies No Known Drug Allergies Allergy (Verified 11/17/19 08:56) - Review of Systems ROS: No change since H&P - Vital Signs and I&O's Vital Signs: Temperature 98.7 F Pulse Rate [Left Brachial] 95 Pulse Rate 91 Respiratory Rate 18 Blood Pressure [Right Arm] 144/85 Blood Pressure [Left Arm] 94/56 Blood Pressure 137/78 O2 Sat by Pulse Oximetry 90 Intake and Output: Intake & Output 11/23/19 11/24/19 11/25/19 11/26/19 11:59 11:59 11:59 11:59 Intake Total 1814 / 5 2580 / 2580 1541 / 1541 2213 / 4 Output Total 50 / 50 200 / 200 Balance 181 / 1815 2530 / 2530 1341 / 1341 2213 / 2213 - Physical Exam Oriented: Person Eyes: Normal Ear: Normal Nose: Normal Throat: Normal Respiratory: Generalized, Wheezes Cardiovascular: Tachycardia. negative: S3, S4, Murmur : Normal Auscultation: Bowel Sounds: Normal Tenderness: RUQ, Mild. negative: Rebound, Guarding, Rigidity Skin: Normal Musculoskeletal: Normal Psychiatric: Normal Mood Description: Calm Affect: Normal Speech Pattern: Clear, Appropriate - Laboratory and Diagnostics Result Diagrams: 11/26/19 05:17 11/26/19 05:17 Labs: 11/18/19 23:39 Blood Blood Culture - Final 11/18/19 22:50 Blood Blood Culture - Final 11/19/19 06:34 Sputum - Expectorated Sputum Sputum Culture - Final 11/19/19 06:34 Sputum - Expectorated Sputum - Final Laboratory WBC 9.8 X10^3/uL (3.6-10.0) 11/26/19 05:17 RBC 3.28 X10^6/uL (4.7-6.0) L 11/26/19 05:17 Hgb 10.7 g/dL (13.5-18.0) L 11/26/19 05:17 Hct 31.0 % (42.0-54.0) L 11/26/19 05:17 MCV 94.4 fL (80.0-100.0) 11/26/19 05:17 MCH 32.5 pg (27.0-34.0) 11/26/19 05:17 MCHC 34.4 g/dL (33.0-35.0) 11/26/19 05:17 RDW 14.4 % (11.6-16.5) 11/26/19 05:17 Plt Count 288 X10^3/uL (150.0-450.0) 11/26/19 05:17 MPV 7.8 fL (7.4-11.0) 11/26/19 05:17 Neut % (Auto) 68.7 % (42.0-75.0) 11/26/19 05:17 Lymph % (Auto) 17.4 % (21.0-51.0) L 11/26/19 05:17 [place] % (Auto) 9.3 % (0.0-13.0) 11/26/19 05:17 Eos % (Auto) 3.9 % (0.9-2.9) H 11/26/19 05:17 Baso % (Auto) 0.7 % (0.2-1.0) 11/26/19 05:17 Neut # (Auto) 6.7 x10^3/uL (2.2-4.8) H 11/26/19 05:17 Lymph # (Auto) 1.7 X10^3/uL (1.3-2.9) 11/26/19 05:17 [place] # (Auto) 0.9 x10^3/uL (0.3-0.8) H 11/26/19 05:17 Eos # (Auto) 0.4 x10^3/uL (0.0-0.2) H 11/26/19 05:17 Baso # (Auto) 0.1 X10^3/uL (0.0-0.1) 11/26/19 05:17 Absolute Nucleated RBC 0.0 /100WBC 11/26/19 05:17 PT 19.9 SECONDS (11.8-14.3) 11/26/19 05:17 INR Target Range - 11/26/19 05:17 INR 1.77 (0.8-1.3) H 11/26/19 05:17 Sodium 139 mmol/L (136-145) 11/26/19 05:17 Corrected Sodium TNP 11/26/19 05:17 Potassium 3.4 mmol/L (3.5-5.1) L 11/26/19 05:17 Chloride 108 mmol/L (98-107) H 11/26/19 05:17 Carbon Dioxide 21.1 mmol/L (21-32) 11/26/19 05:17 BUN 13 mg/dL (7-18) 11/26/19 05:17 Creatinine 1.81 mg/dL (0.70-1.30) H 11/26/19 05:17 Est GFR (MDRD) Af Amer 47 (>60) L 11/26/19 05:17 Est GFR (MDRD) Non-Af 38 (>60) L 11/26/19 05:17 Glucose 92 mg/dL (65-99) 11/26/19 05:17 Lactic Acid 0.8 mmol/L (0.4-2.0) 11/18/19 22:50 Calcium 8.1 mg/dL (8.5-10.1) L 11/26/19 05:17 Corrected Calcium 9.5 mg/dL (8.5-10.1) 11/26/19 05:17 Magnesium 1.9 mg/dL (1.7-2.9) 11/21/19 06:43 Total Bilirubin 0.30 mg/dL (0.2-1.0) 11/26/19 05:17 AST 48 Units/L (15-37) H 11/26/19 05:17 ALT 44 Units/L (12-78) 11/26/19 05:17 Alkaline Phosphatase 23 Units/L (46-116) L 11/26/19 05:17 Creatine Kinase 129 Units/L (39-308) 11/21/19 18:05 CK-MB (CK-2) 3.1 ng/mL (0-4.0) 11/21/19 18:05 CK/CKMB % Calc 2.4 % (<4) 11/21/19 18:05 Troponin I < 0.02 ng/mL (0-1.5) 11/21/19 18:05 Total Protein 6.7 g/dL (6.4-8.2) 11/26/19 05:17 Albumin 2.3 g/dL (3.4-5.0) L 11/26/19 05:17 Globulin 4.4 g/dL (2.5-4.5) 11/26/19 05:17 Albumin/Globulin Ratio 0.5 Ratio (1.1-2.1) L 11/26/19 05:17 Specimen Type Clean catch urine 11/18/19 21:30 Urine Color Dark yellow (YELLOW) 11/18/19 21:30 Urine Appearance Slightly hazy (CLEAR) 11/18/19 21:30 Urine pH 5.0 (5.0 - 8.0) 11/18/19 21:30 Ur Specific [place] 1.020 (1.000-1.030) 11/18/19 21:30 Urine Protein 2+ (NEGATIVE) 11/18/19 21:30 Urine Glucose (UA) Negative (NEGATIVE) 11/18/19 21:30 Urine Ketones 2+ (NEGATIVE) 11/18/19 21:30 Urine Occult Blood 4+ (NEGATIVE) 11/18/19 21:30 Urine Nitrite Negative (NEGATIVE) 11/18/19 21:30 Urine Bilirubin Negative (NEGATIVE) 11/18/19 21:30 Urine Urobilinogen Normal (NORMAL) 11/18/19 21:30 Ur Leukocyte Esterase Negative (NEGATIVE) 11/18/19 21:30 Urine RBC 3-5 /HPF (0-3) A 11/18/19 21:30 Urine WBC None seen /HPF (0-5) 11/18/19 21:30 Ur Squamous Epith Cells Rare /HPF (NEGATIVE) 11/18/19 21:30 Urine Bacteria Negative /HPF (NEGATIVE) 11/18/19 21:30 Urine Mucus Few /HPF (NEGATIVE) 11/18/19 16:51 Ur Culture Indicated? No/not indicated 11/18/19 21:30 - Plan (1) Pulmonary emboli Status: Acute Qualifiers: Pulmonary embolism type: multiple subsegmental (without acute cor pulmonale) Qualified Code(s): I26.94 - Multiple subsegmental pulmonary emboli without acute cor pulmonale Plan: LOVENOX 80MG SC BID, COUMADIN 5MG PO HS, CONTINUE TO MONITOR (2) Bronchopneumonia Status: Acute Plan: NS AT 75 ML/HR, ZOSYN 3.375G IV TID, RESPIRATORY TX, LOVENOX, SUPPLEMENTAL OXYGEN, AND HOME MEDICATIONS WERE RESUMED, FOLLOW UP WITH AM LABS AND CHEST XRAY (3) Altered mental status Status: Acute Qualifiers: Altered mental status type: transient alteration of awareness Qualified Code(s): R40.4 - Transient alteration of awareness (4) Abdominal pain Status: Resolved Qualifiers: Abdominal location: right upper quadrant Qualified Code(s): R10.11 - Right upper quadrant pain Plan: ABDOMEN/PELVIS CT WITH CONTRAST, CONTINUE TO MONITOR. (5) Chest pain Status: Resolved Qualifiers: Chest pain type: unspecified Qualified Code(s): R07.9 - Chest pain, unspecified Plan: SERIAL CARDIAC ENZYMES AND EKGS, CONTINUE TO MONITOR
[2019-11-26] MEDS: AVODART PO SCH (11:35)
[2019-11-26] MEDS: DIFLUCAN 100 MG IV (MIX by PHARMACY)* 100 MG/50 ML BAG IV SCH (11:35)
[2019-11-26] MEDS ORDERED: HumuLIN R SUBCUT PRN (11:52)
[2019-11-26] MEDS ORDERED: DEXTROSE 10% 1,000 ML IV PRN (11:52)
[2019-11-26 12:51] LABS: MAGNESIUM 1.7 mg/dL (1.7-2.9); PHOSPHORUS 3.2 mg/dL (2.6-4.7)
--- NOTE | 2019-11-26 17:33 | PCM.PROG ---
Progress Note - Progress Note for Day of Date of Exam: 11/26/19 - Subjective Subjective: IS BEING TREATED FOR MULTIPLE PULMONARY EMBOLI, BRONCHOPNEUMONIA, AND ALTERED MENTAL STATUS. TODAY, HE IS ALERT AND ORIENTED, LYING IN BED ON MORNING ROUNDS. HE CONTINUES WITH COMPLAINTS OF A PRODUCTIVE COUGH, SHORTNESS OF BREATH, AND WEAKNESS. FAMILY REPORTS THAT HE CONTINUES WITH UNSTEADY GAIT AND INCREASED SOB ON EXERTION. ON EXAMINATION, HEART IS REGULAR IN RATE AND RHYTHM. BILATERAL LUNGS ARE NOTED WITH DIMINISHED LUNG SOUNDS THROUGHOUT. ABDOMEN IS ROUND, SOFT, AND NOTED WITH RUQ TENDERNESS. HIS VITALS THIS MORNING ARE: 97.6-90-20-95%-158/78. LABS WERE OBTAINED. ABNORMAL LAB VALUES INCLUDE THE FOLLOWING: RBC 3.28, HGB 10.7, HCT 31.0, INR 1.77, POTASSIUM 3.4, CHLORIDE 108, CREATININE 1.81, CALCIUM 8.1, AST 48, ALK PHOS 23, ALBUMIN 2.3. HE IS CURRENTLY RECEIVING NS AT 75 ML/HR, ZOSYN 3.375G IV TID, DIFLUCAN 200MG IV DAILY, RESPIRATORY TX, LOVENOX 80MG SC BID, COUMADIN 5MG PO HS, AVODART 0.5MG PO DAILY, TERAZOSIN 2MG PO BID, SUPPLEMENTAL OXYGEN, AND HOME MEDICATIONS WERE RESUMED. WE WILL CONTINUE WITH CURRENT PLAN OF CARE TODAY AND START TPN AND ALBUMIN. OTHERWISE, WE WILL FOLLOW UP WITH AM LABS AND CONTINUE TO MONITOR. - Past Medical Family Social History Past Med/Fam/Surg Hx: No changes since H&P Allergies: Allergies No Known Drug Allergies Allergy (Verified 11/17/19 08:56) - Review of Systems ROS: No change since H&P - Vital Signs and I&O's Vital Signs: Temperature 99.2 F Pulse Rate [Left Brachial] 80 Pulse Rate 82 Respiratory Rate 20 Blood Pressure [Right Arm] 146/92 Blood Pressure [Left Arm] 94/56 Blood Pressure 137/78 O2 Sat by Pulse Oximetry 95 Intake and Output: Intake & Output 11/24/19 11/25/19 11/26/19 11/27/19 11:59 11:59 11:59 11:59 Intake Total 2580 / 2580 1541 / 1541 2214 / 2214 400 / 400 Output Total 50 / 50 200 / 200 Balance 2530 / 2530 1341 / 1341 2214 / 2214 400 / 400 - Physical Exam Oriented: Person Eyes: Normal Ear: Normal Nose: Normal Throat: Normal Respiratory: Generalized, Wheezes Cardiovascular: Tachycardia. negative: S3, S4, Murmur : Normal Auscultation: Bowel Sounds: Normal Tenderness: RUQ, Mild. negative: Rebound, Guarding, Rigidity Skin: Normal Musculoskeletal: Normal Psychiatric: Normal Mood Description: Calm Affect: Normal Speech Pattern: Clear, Appropriate - Laboratory and Diagnostics Result Diagrams: 11/26/19 05:17 11/26/19 05:17 Labs: 11/18/19 23:39 Blood Blood Culture - Final 11/18/19 22:50 Blood Blood Culture - Final 11/19/19 06:34 Sputum - Expectorated Sputum Sputum Culture - Final 11/19/19 06:34 Sputum - Expectorated Sputum - Final Laboratory WBC 9.8 X10^3/uL (3.6-10.0) 11/26/19 05:17 RBC 3.28 X10^6/uL (4.7-6.0) L 11/26/19 05:17 Hgb 10.7 g/dL (13.5-18.0) L 11/26/19 05:17 Hct 31.0 % (42.0-54.0) L 11/26/19 05:17 MCV 94.4 fL (80.0-100.0) 11/26/19 05:17 MCH 32.5 pg (27.0-34.0) 11/26/19 05:17 MCHC 34.4 g/dL (33.0-35.0) 11/26/19 05:17 RDW 14.4 % (11.6-16.5) 11/26/19 05:17 Plt Count 288 X10^3/uL (150.0-450.0) 11/26/19 05:17 MPV 7.8 fL (7.4-11.0) 11/26/19 05:17 Neut % (Auto) 68.7 % (42.0-75.0) 11/26/19 05:17 Lymph % (Auto) 17.4 % (21.0-51.0) L 11/26/19 05:17 [place] % (Auto) 9.3 % (0.0-13.0) 11/26/19 05:17 Eos % (Auto) 3.9 % (0.9-2.9) H 11/26/19 05:17 Baso % (Auto) 0.7 % (0.2-1.0) 11/26/19 05:17 Neut # (Auto) 6.7 x10^3/uL (2.2-4.8) H 11/26/19 05:17 Lymph # (Auto) 1.7 X10^3/uL (1.3-2.9) 11/26/19 05:17 [place] # (Auto) 0.9 x10^3/uL (0.3-0.8) H 11/26/19 05:17 Eos # (Auto) 0.4 x10^3/uL (0.0-0.2) H 11/26/19 05:17 Baso # (Auto) 0.1 X10^3/uL (0.0-0.1) 11/26/19 05:17 Absolute Nucleated RBC 0.0 /100WBC 11/26/19 05:17 PT 19.9 SECONDS (11.8-14.3) 11/26/19 05:17 INR Target Range - 11/26/19 05:17 INR 1.77 (0.8-1.3) H 11/26/19 05:17 Sodium 139 mmol/L (136-145) 11/26/19 05:17 Corrected Sodium TNP 11/26/19 05:17 Potassium 3.4 mmol/L (3.5-5.1) L 11/26/19 05:17 Chloride 108 mmol/L (98-107) H 11/26/19 05:17 Carbon Dioxide 21.1 mmol/L (21-32) 11/26/19 05:17 BUN 13 mg/dL (7-18) 11/26/19 05:17 Creatinine 1.81 mg/dL (0.70-1.30) H 11/26/19 05:17 Est GFR (MDRD) Af Amer 47 (>60) L 11/26/19 05:17 Est GFR (MDRD) Non-Af 38 (>60) L 11/26/19 05:17 Glucose 92 mg/dL (65-99) 11/26/19 05:17 POC Glucose (mg/dL) 132 mg/dL (65-99) H 11/26/19 16:33 Lactic Acid 0.8 mmol/L (0.4-2.0) 11/18/19 22:50 Calcium 8.1 mg/dL (8.5-10.1) L 11/26/19 05:17 Corrected Calcium 9.5 mg/dL (8.5-10.1) 11/26/19 05:17 Phosphorus 3.2 mg/dL (2.6-4.7) 11/26/19 12:16 Magnesium 1.7 mg/dL (1.7-2.9) 11/26/19 12:16 Total Bilirubin 0.30 mg/dL (0.2-1.0) 11/26/19 05:17 AST 48 Units/L (15-37) H 11/26/19 05:17 ALT 44 Units/L (12-78) 11/26/19 05:17 Alkaline Phosphatase 23 Units/L (46-116) L 11/26/19 05:17 Creatine Kinase 129 Units/L (39-308) 11/21/19 18:05 CK-MB (CK-2) 3.1 ng/mL (0-4.0) 11/21/19 18:05 CK/CKMB % Calc 2.4 % (<4) 11/21/19 18:05 Troponin I < 0.02 ng/mL (0-1.5) 11/21/19 18:05 Total Protein 6.7 g/dL (6.4-8.2) 11/26/19 05:17 Albumin 2.3 g/dL (3.4-5.0) L 11/26/19 05:17 Globulin 4.4 g/dL (2.5-4.5) 11/26/19 05:17 Albumin/Globulin Ratio 0.5 Ratio (1.1-2.1) L 11/26/19 05:17 Triglycerides 76 mg/dL (0-150) 11/26/19 12:16 Specimen Type Clean catch urine 11/18/19 21:30 Urine Color Dark yellow (YELLOW) 11/18/19 21:30 Urine Appearance Slightly hazy (CLEAR) 11/18/19 21:30 Urine pH 5.0 (5.0 - 8.0) 11/18/19 21:30 Ur Specific [place] 1.020 (1.000-1.030) 11/18/19 21:30 Urine Protein 2+ (NEGATIVE) 11/18/19 21:30 Urine Glucose (UA) Negative (NEGATIVE) 11/18/19 21:30 Urine Ketones 2+ (NEGATIVE) 11/18/19 21:30 Urine Occult Blood 4+ (NEGATIVE) 11/18/19 21:30 Urine Nitrite Negative (NEGATIVE) 11/18/19 21:30 Urine Bilirubin Negative (NEGATIVE) 11/18/19 21:30 Urine Urobilinogen Normal (NORMAL) 11/18/19 21:30 Ur Leukocyte Esterase Negative (NEGATIVE) 11/18/19 21:30 Urine RBC 3-5 /HPF (0-3) A 11/18/19 21: Urine WBC None seen /HPF (0-5) 11/18/19 21:30 Ur Squamous Epith Cells Rare /HPF (NEGATIVE) 11/18/19 21:30 Urine Bacteria Negative /HPF (NEGATIVE) 11/18/19 21: Urine Mucus Few /HPF (NEGATIVE) 11/18/19 16:51 Ur Culture Indicated? No/not indicated 11/18/19 21:30 - Plan (1) Pulmonary emboli Status: Acute Qualifiers: Pulmonary embolism type: multiple subsegmental (without acute cor pulmonale) Qualified Code(s): I26.94 - Multiple subsegmental pulmonary emboli without acute cor pulmonale Plan: LOVENOX 80MG SC BID, COUMADIN 5MG PO HS, CONTINUE TO MONITOR (2) Bronchopneumonia Status: Acute Plan: NS AT 75 ML/HR, ZOSYN 3.375G IV TID, RESPIRATORY TX, LOVENOX, SUPPLEMENTAL OXYGEN, AND HOME MEDICATIONS WERE RESUMED, FOLLOW UP WITH AM LABS AND CHEST XRAY (3) Altered mental status Status: Acute Qualifiers: Altered mental status type: transient alteration of awareness Qualified Code(s): R40.4 - Transient alteration of awareness (4) Abdominal pain Status: Resolved Qualifiers: Abdominal location: right upper quadrant Qualified Code(s): R10.11 - Right upper quadrant pain Plan: ABDOMEN/PELVIS CT WITH CONTRAST, CONTINUE TO MONITOR. (5) Chest pain Status: Resolved Qualifiers: Chest pain type: unspecified Qualified Code(s): R07.9 - Chest pain, unspecified Plan: SERIAL CARDIAC ENZYMES AND EKGS, CONTINUE TO MONITOR
[2019-11-26] MEDS: COUMADIN TAB 5 MG PO SCH (20:39)
[2019-11-27] MEDS: DUONEB 0.5 MG/3 MG (3 mL) NEB SCH ×4 (00:35→17:02)
[2019-11-27] MEDS: ULTRAM PO SCH ×4 (04:37→20:55)
[2019-11-27] MEDS: ZOSYN VIAL 3.375 GRAMS 3.375 G in NS 100 ML IV + SPIKE MINIBAG* 100 ML IV SCH ×3 (05:00→22:00)
[2019-11-27 06:50] LABS: BASOPHILS # (AUTO) 0.1 X10^3/uL (0.0-0.1); BASOPHILS % (AUTO) 1.3 % (0.2-1.0); EOSINOPHILS # (AUTO) 0.3 x10^3/uL (0.0-0.2); HEMATOCRIT 30.3 % (42.0-54.0); HEMOGLOBIN 10.4 g/dL (13.5-18.0); LYMPHOCYTES # (AUTO) 1.5 X10^3/uL (1.3-2.9); LYMPHOCYTES % (AUTO) 13.4 % (21.0-51.0); MEAN CORPUSCULAR HGB CONC 34.3 g/dL (33.0-35.0); MEAN CORPUSCULAR VOLUME 93.3 fL (80.0-100.0); MEAN PLATELET VOLUME 7.7 fL (7.4-11.0); MONOCYTES # (AUTO) 1.1 x10^3/uL (0.3-0.8); MONOCYTES % (AUTO) 9.8 % (0.0-13.0); NEUTROPHILS % (AUTO) 72.5 % (42.0-75.0); PLATELET COUNT 273 X10^3/uL (150.0-450.0); RED BLOOD COUNT 3.25 X10^6/uL (4.7-6.0); RED CELL DISTRIBUTION WIDTH 14.5 % (11.6-16.5)
[2019-11-27 06:57] LABS: PREALBUMIN 13.8 mg/dL (18-35.7)
[2019-11-27 07:14] LABS: ALBUMIN 2.6 g/dL (3.4-5.0); CALCIUM 8.4 mg/dL (8.5-10.1); CARBON DIOXIDE 23.6 mmol/L (21-32); COR CA(FOR HYPOALB) 9.5 mg/dL (8.5-10.1); CREATININE 1.64 mg/dL (0.70-1.30); TOTAL PROTEIN 6.9 g/dL (6.4-8.2)
[2019-11-27] MEDS: PULMICORT NEB TX 0.5 MG NEB SCH ×2 (08:55→20:28)
--- NOTE | 2019-11-27 09:08 | RAD ---
HISTORYSOBSTUDYPortable AP chestCOMPARISONMarch 2019FINDINGSThe heart size is prominent. Previously demonstrated right basilar infiltrate is improved if not completely cleared. There is no edema or significant effusion demonstrated.IMPRESSIONThe no current evidence for active cardiopulmonary diseaseElectronically signed by: FE STYLES (Nov 27, 2019 09:06:41)
[2019-11-27] MEDS: HYTRIN PO SCH ×2 (09:44→20:54)
[2019-11-27] MEDS: ALBUMIN HUMAN 25%- 100 ML 100 ML IV SCH (09:44)
[2019-11-27] MEDS: ROBITUSSIN DM PO SCH ×4 (09:44→20:57)
[2019-11-27] MEDS: SYNTHROID 25 mcg TAB PO SCH (09:44)
[2019-11-27] MEDS: DITROPAN TAB 5 MG PO SCH (09:45)
[2019-11-27] MEDS: ARICEPT TAB 10 MG PO SCH (09:45)
[2019-11-27] MEDS: ASPIRIN EC 81 MG PO SCH (09:48)
[2019-11-27] MEDS: LOVENOX INJ 80 MG SYR SC SCH ×2 (09:50→20:54)
[2019-11-27] MEDS: TUSSIONEX PENNKINETIC SUSP PO SCH ×2 (09:55→20:55)
[2019-11-27] MEDS: LOPRESSOR TAB 25 MG PO SCH (09:56)
[2019-11-27] MEDS: DIFLUCAN 100 MG IV (MIX by PHARMACY)* 100 MG/50 ML BAG IV SCH (11:31)
[2019-11-27] MEDS: AVODART PO SCH (11:31)
--- NOTE | 2019-11-27 16:15 | PCM.PROG ---
Progress Note - Progress Note for Day of Date of Exam: 11/27/19 - Subjective Subjective: IS BEING TREATED FOR MULTIPLE PULMONARY EMBOLI, BRONCHOPNEUMONIA, AND ALTERED MENTAL STATUS. TODAY, HE IS ALERT AND ORIENTED, LYING IN BED ON MORNING ROUNDS. HE CONTINUES WITH COMPLAINTS OF COUGH, SHORTNESS OF BREATH, AND WEAKNESS. FAMILY REPORTS THAT HE CONTINUES WITH UNSTEADY GAIT. ON EXAMINATION, HE IS TACHYCARDIC. BILATERAL LUNGS ARE NOTED WITH DIMINISHED LUNG SOUNDS THROUGHOUT. ABDOMEN IS ROUND, SOFT, AND NOTED WITH RUQ TENDERNESS. HIS VITALS THIS MORNING ARE: 99.1-110-20-92%-158/81. LABS WERE OBTAINED. ABNORMAL LAB VALUES INCLUDE THE FOLLOWING: WBC 11.0, RBC 3.25, HGB 10.4, HCT 30.3, INR 2.29, POTASSIUM 3.4, CHLORIDE 108, CREATININE 1.81, CALCIUM 8.1, AST 48, ALK PH OS 23, ALBUMIN 2.3. HE IS CURRENTLY RECEIVING TPN, ALBUMIN, NS AT 75 ML/HR, ZOSYN 3.375G IV TID, DIFLUCAN 200MG IV DAILY, RESPIRATORY TX, LOVENOX 80MG SC BID, COUMADIN 5MG PO HS, AVODART 0.5MG PO DAILY, TERAZOSIN 2MG PO BID, SUPPLEMENTAL OXYGEN, AND HOME MEDICATIONS WERE RESUMED. HE HAS BEEN ACCEPTED [facility] [place], PENDING APPROVAL BY MEDICARE. WE WILL CONTINUE WITH CURRENT PLAN OF CARE TODAY. OTHERWISE, WE WILL FOLLOW UP WITH AM LABS AND CONTINUE TO MONITOR. - Past Medical Family Social History Past Med/Fam/Surg Hx: No changes since H&P Allergies: Allergies No Known Drug Allergies Allergy (Verified 11/17/19 08:56) - Review of Systems ROS: No change since H&P - Vital Signs and I&O's Vital Signs: Temperature 99.1 F Pulse Rate [Left Brachial] 110 Pulse Rate 73 Respiratory Rate 20 Blood Pressure [Right Arm] 158/81 Blood Pressure [Left Arm] 94/56 Blood Pressure 137/78 O2 Sat by Pulse Oximetry 93 Intake and Output: Intake & Output 11/25/19 11/26/19 11/27/19 11/28/19 11:59 11:59 11:59 11:59 Intake Total 1541 / 1541 2214 / 2214 1750 / 1750 480 / 480 Output Total 200 / 200 Balance 1341 / 1341 2214 / 2214 1750 / 1750 480 / 480 - Physical Exam Oriented: Person Eyes: Normal Ear: Normal Nose: Normal Throat: Normal Respiratory: Generalized, Wheezes Cardiovascular: Tachycardia. negative: S3, S4, Murmur : Normal Auscultation: Bowel Sounds: Normal Tenderness: RUQ, Mild. negative: Rebound, Guarding, Rigidity Skin: Normal Musculoskeletal: Normal Psychiatric: Normal Mood Description: Calm Affect: Normal Speech Pattern: Clear, Appropriate - Laboratory and Diagnostics Result Diagrams: 11/27/19 06:00 11/27/19 06:00 Labs: 11/18/19 23:39 Blood Blood Culture - Final 11/18/19 22:50 Blood Blood Culture - Final 11/19/19 06:34 Sputum - Expectorated Sputum Sputum Culture - Final 11/19/19 06:34 Sputum - Expectorated Sputum - Final Laboratory WBC 11.0 X10^3/uL (3.6-10.0) H 11/27/19 06:00 RBC 3.25 X10^6/uL (4.7-6.0) L 11/27/19 06:00 Hgb 10.4 g/dL (13.5-18.0) L 11/27/19 06:00 Hct 30.3 % (42.0-54.0) L 11/27/19 06:00 MCV 93.3 fL (80.0-100.0) 11/27/19 06:00 MCH 32.0 pg (27.0-34.0) 11/27/19 06:00 MCHC 34.3 g/dL (33.0-35.0) 11/27/19 06:00 RDW 14.5 % (11.6-16.5) 11/27/19 06:00 Plt Count 273 X10^3/uL (150.0-450.0) 11/27/19 06:00 MPV 7.7 fL (7.4-11.0) 11/27/19 06:00 Neut % (Auto) 72.5 % (42.0-75.0) 11/27/19 06:00 Lymph % (Auto) 13.4 % (21.0-51.0) L 11/27/19 06:00 [place] % (Auto) 9.8 % (0.0-13.0) 11/27/19 06:00 Eos % (Auto) 3.0 % (0.9-2.9) H 11/27/19 06:00 Baso % (Auto) 1.3 % (0.2-1.0) H 11/27/19 06:00 Neut # (Auto) 8.0 x10^3/uL (2.2-4.8) H 11/27/19 06:00 Lymph # (Auto) 1.5 X10^3/uL (1.3-2.9) 11/27/19 06:00 [place] # (Auto) 1.1 x10^3/uL (0.3-0.8) H 11/27/19 06:00 Eos # (Auto) 0.3 x10^3/uL (0.0-0.2) H 11/27/19 06:00 Baso # (Auto) 0.1 X10^3/uL (0.0-0.1) 11/27/19 06:00 Absolute Nucleated RBC 0.0 /100WBC 11/27/19 06:00 PT 24.3 SECONDS (11.8-14.3) 11/27/19 06:00 INR Target Range - 11/27/19 06:00 INR 2.29 (0.8-1.3) H 11/27/19 06:00 Sodium 141 mmol/L (136-145) 11/27/19 06:00 Corrected Sodium 141 mmol/L (136-145) 11/27/19 06:00 Potassium 3.9 mmol/L (3.5-5.1) 11/27/19 06:00 Chloride 107 mmol/L (98-107) 11/27/19 06:00 Carbon Dioxide 23.6 mmol/L (21-32) 11/27/19 06:00 BUN 13 mg/dL (7-18) 11/27/19 06:00 Creatinine 1.64 mg/dL (0.70-1.30) H 11/27/19 06:00 Est GFR (MDRD) Af Amer 52 (>60) L 11/27/19 06:00 Est GFR (MDRD) Non-Af 43 (>60) L 11/27/19 06:00 Glucose 117 mg/dL (65-99) H 11/27/19 06:00 POC Glucose (mg/dL) 124 mg/dL (65-99) H 11/27/19 09:55 Lactic Acid 0.8 mmol/L (0.4-2.0) 11/18/19 22:50 Calcium 8.4 mg/dL (8.5-10.1) L 11/27/19 06:00 Corrected Calcium 9.5 mg/dL (8.5-10.1) 11/27/19 06:00 Phosphorus 3.2 mg/dL (2.6-4.7) 11/26/19 12:16 Magnesium 1.7 mg/dL (1.7-2.9) 11/26/19 12:16 Total Bilirubin 0.30 mg/dL (0.2-1.0) 11/27/19 06:00 AST 38 Units/L (15-37) H 11/27/19 06:00 ALT 44 Units/L (12-78) 11/27/19 06:00 Alkaline Phosphatase 24 Units/L (46-116) L 11/27/19 06:00 Creatine Kinase 129 Units/L (39-308) 11/21/19 18:05 CK-MB (CK-2) 3.1 ng/mL (0-4.0) 11/21/19 18:05 CK/CKMB % Calc 2.4 % (<4) 11/21/19 18:05 Troponin I < 0.02 ng/mL (0-1.5) 11/21/19 18:05 Total Protein 6.9 g/dL (6.4-8.2) 11/27/19 06:00 Albumin 2.6 g/dL (3.4-5.0) L 11/27/19 06:00 Globulin 4.3 g/dL (2.5-4.5) 11/27/19 06:00 Albumin/Globulin Ratio 0.6 Ratio (1.1-2.1) L 11/27/19 06:00 Prealbumin 13.8 mg/dL (18-35.7) L 11/27/19 06:00 Triglycerides 76 mg/dL (0-150) 11/26/19 12:16 Specimen Type Clean catch urine 11/18/19 21:30 Urine Color Dark yellow (YELLOW) 11/18/19 21:30 Urine Appearance Slightly hazy (CLEAR) 11/18/19 21:30 Urine pH 5.0 (5.0 - 8.0) 11/18/19 21:30 Ur Specific [place] 1.020 (1.000-1.030) 11/18/19 21:30 Urine Protein 2+ (NEGATIVE) 11/18/19 21:30 Urine Glucose (UA) Negative (NEGATIVE) 11/18/19 21: Urine Ketones 2+ (NEGATIVE) 11/18/19 21:30 Urine Occult Blood 4+ (NEGATIVE) 11/18/19 21:30 Urine Nitrite Negative (NEGATIVE) 11/18/19 21: Urine Bilirubin Negative (NEGATIVE) 11/18/19 21: Urine Urobilinogen Normal (NORMAL) 11/18/19 21:30 Ur Leukocyte Esterase Negative (NEGATIVE) 11/18/19 21:30 Urine RBC 3-5 /HPF (0-3) A 11/18/19 21:30 Urine WBC None seen /HPF (0-5) 11/18/19 21:30 Ur Squamous Epith Cells Rare /HPF (NEGATIVE) 11/18/19 21:30 Urine Bacteria Negative /HPF (NEGATIVE) 11/18/19 21: Urine Mucus Few /HPF (NEGATIVE) 11/18/19 16:51 Ur Culture Indicated? No/not indicated 11/18/19 21:30 - Plan (1) Pulmonary emboli Status: Acute Qualifiers: Pulmonary embolism type: multiple subsegmental (without acute cor pulmonale) Qualified Code(s): I26.94 - Multiple subsegmental pulmonary emboli without acute cor pulmonale Plan: LOVENOX 80MG SC BID, COUMADIN 5MG PO HS, CONTINUE TO MONITOR (2) Bronchopneumonia Status: Acute Plan: NS AT 75 ML/HR, ZOSYN 3.375G IV TID, RESPIRATORY TX, LOVENOX, SUPPLEMENTAL OXYGEN, AND HOME MEDICATIONS WERE RESUMED, FOLLOW UP WITH AM LABS AND CHEST XRAY (3) Altered mental status Status: Acute Qualifiers: Altered mental status type: transient alteration of awareness Qualified Code(s): R40.4 - Transient alteration of awareness (4) Abdominal pain Status: Resolved Qualifiers: Abdominal location: right upper quadrant Qualified Code(s): R10.11 - Right upper quadrant pain Plan: ABDOMEN/PELVIS CT WITH CONTRAST, CONTINUE TO MONITOR. (5) Chest pain Status: Resolved Qualifiers: Chest pain type: unspecified Qualified Code(s): R07.9 - Chest pain, unspecified Plan: SERIAL CARDIAC ENZYMES AND EKGS, CONTINUE TO MONITOR
[2019-11-27] MEDS: MVI IV SCH ×4 (20:12)
[2019-11-27] MEDS: [UNRECOGNIZED DRUG - OTHER] IV SCH ×4 (20:12)
[2019-11-27] MEDS: TPN ELECTROLYTES IV SCH ×4 (20:12)
[2019-11-27] MEDS: CLINIMIX IV SCH ×4 (20:12)
[2019-11-27] MEDS: COUMADIN TAB 5 MG PO SCH (20:53)
[2019-11-28] MEDS: DUONEB 0.5 MG/3 MG (3 mL) NEB SCH ×4 (00:30→18:01)
[2019-11-28] MEDS: ULTRAM PO SCH ×5 (04:33→21:19)
[2019-11-28] MEDS: ZOSYN VIAL 3.375 GRAMS 3.375 G in NS 100 ML IV + SPIKE MINIBAG* 100 ML IV SCH ×2 (05:26→14:00)
[2019-11-28 06:49] LABS: BASOPHILS # (AUTO) 0.1 X10^3/uL (0.0-0.1); BASOPHILS % (AUTO) 1.3 % (0.2-1.0); EOSINOPHILS # (AUTO) 0.2 x10^3/uL (0.0-0.2); EOSINOPHILS % (AUTO) 2.5 % (0.9-2.9); HEMATOCRIT 29.1 % (42.0-54.0); HEMOGLOBIN 10.1 g/dL (13.5-18.0); LYMPHOCYTES # (AUTO) 1.5 X10^3/uL (1.3-2.9); LYMPHOCYTES % (AUTO) 16.3 % (21.0-51.0); MEAN CORPUSCULAR HEMOGLOBIN 32.2 pg (27.0-34.0); MEAN CORPUSCULAR HGB CONC 34.7 g/dL (33.0-35.0); MEAN CORPUSCULAR VOLUME 92.7 fL (80.0-100.0); MEAN PLATELET VOLUME 7.6 fL (7.4-11.0); MONOCYTES # (AUTO) 0.8 x10^3/uL (0.3-0.8); MONOCYTES % (AUTO) 8.8 % (0.0-13.0); NEUTROPHILS # (AUTO) 6.5 x10^3/uL (2.2-4.8); NEUTROPHILS % (AUTO) 71.1 % (42.0-75.0); PLATELET COUNT 260 X10^3/uL (150.0-450.0); RED BLOOD COUNT 3.14 X10^6/uL (4.7-6.0); RED CELL DISTRIBUTION WIDTH 14.4 % (11.6-16.5); WHITE BLOOD COUNT 9.1 X10^3/uL (3.6-10.0)
[2019-11-28 07:02] LABS: ALANINE AMINOTRANSFERASE 37 Units/L (12-78); ALBUMIN 2.6 g/dL (3.4-5.0); ALKALINE PHOSPHATASE 20 Units/L (46-116); ASPARTATE AMINO TRANSFERASE 30 Units/L (15-37); BLOOD UREA NITROGEN 15 mg/dL (7-18); CALCIUM 8.2 mg/dL (8.5-10.1); CARBON DIOXIDE 23.1 mmol/L (21-32); CHLORIDE 106 mmol/L (98-107); COR CA(FOR HYPOALB) 9.3 mg/dL (8.5-10.1); COR NA(FOR HYPERGLY) 139 mmol/L (136-145); CREATININE 1.44 mg/dL (0.70-1.30); SODIUM 139 mmol/L (136-145); TOTAL PROTEIN 6.6 g/dL (6.4-8.2); eGFR NON BLACK RACES 50 (>60)
--- NOTE | 2019-11-28 07:44 | RAD ---
HISTORYSOBSTUDYCHEST, 1 VIEWCOMPARISONPortable chest November 27, 2019FINDINGSThe trachea is midline. The cardiac silhouette is unremarkable. There is chronic elevation right hemidiaphragm the lungs are clear without focal infiltrate or effusion. The bony thorax is unremarkable.IMPRESSIONNo acute cardiopulmonary disease and no significant change compared to the portable chest November 27, 2019..Electronically signed by: BEN MERCADO (Nov 28, 2019 07:43:09)
[2019-11-28] MEDS: PULMICORT NEB TX 0.5 MG NEB SCH ×2 (08:00→20:50)
[2019-11-28] MEDS: DIFLUCAN 100 MG IV (MIX by PHARMACY)* 100 MG/50 ML BAG IV SCH (08:28)
[2019-11-28] MEDS: ALBUMIN HUMAN 25%- 100 ML 100 ML IV SCH (08:29)
[2019-11-28] MEDS: AVODART PO SCH (08:30)
[2019-11-28] MEDS: ASPIRIN EC 81 MG PO SCH (08:30)
[2019-11-28] MEDS: DITROPAN TAB 5 MG PO SCH (08:31)
[2019-11-28] MEDS: HYTRIN PO SCH ×2 (08:31→21:20)
[2019-11-28] MEDS: SYNTHROID 25 mcg TAB PO SCH (08:31)
[2019-11-28] MEDS: ARICEPT TAB 10 MG PO SCH (08:31)
[2019-11-28] MEDS: LOPRESSOR TAB 25 MG PO SCH (08:32)
[2019-11-28] MEDS: ROBITUSSIN DM PO SCH ×4 (08:32→21:17)
[2019-11-28] MEDS: TPN ELECTROLYTES IV SCH ×8 (08:41→21:23)
[2019-11-28] MEDS: MVI IV SCH ×8 (08:41→21:23)
[2019-11-28] MEDS: TUSSIONEX PENNKINETIC SUSP PO SCH (08:41)
[2019-11-28] MEDS: [UNRECOGNIZED DRUG - OTHER] IV SCH ×8 (08:41→21:23)
[2019-11-28] MEDS: CLINIMIX IV SCH ×8 (08:41→21:23)
[2019-11-28] MEDS: LOVENOX INJ 80 MG SYR SC SCH ×2 (08:48→21:22)
[2019-11-28] MEDS ORDERED: LASIX IVP SCH ×2 (10:00→21:00)
[2019-11-28] MEDS: NS 1000 ML 1,000 ML IV SCH ×2 (12:54)
[2019-11-28] MEDS: COUMADIN TAB 5 MG PO SCH (21:18)
--- NOTE | 2019-11-28 22:51 | PCM.PROG ---
Progress Note - Progress Note for Day of Date of Exam: 11/28/19 - Subjective Subjective: IS BEING TREATED FOR MULTIPLE PULMONARY EMBOLI, BRONCHOPNEUMONIA, AND ALTERED MENTAL STATUS. TODAY, HE IS ALERT AND ORIENTED, SITTING UP IN BED ON MORNING ROUNDS. HE CONTINUES WITH COMPLAINTS OF COUGH, SHORTNESS OF BREATH, AND WEAKNESS. FAMILY REPORTS THAT HE CONTINUES WITH UNSTE MELONY GAIT AND ALSO WITH DIFFICULTY URINATING. ON EXAMINATION, HEART IS REGULAR IN RATE AND RHYTHM. BILATERAL LUNGS ARE NOTED WITH DIMINISHED LUNG SOUNDS THROUGHOUT. ABDOMEN IS ROUND, SOFT, AND NOTED WITH RUQ TENDERNESS. HIS VITALS THIS MORNING ARE: 98.1-69-20-92%-170/95. LABS WERE OBTAINED. ABNORMAL LAB VALUES INCLUDE THE FOLLOWING: RBC 3.14, HGB 10.1, HCT 29.1, INR 2.62, POTASSIUM 3.0, CREATININE 1.44, GLUCOSE 115, CALCIUM 8.2, ALK PHOS 20, ALBUMIN 2.6. HE IS CURRENTLY RECEIVING TPN, ALBUMIN, NS AT 75 ML/HR, ZOSYN 3.375G IV TID, DIFLUCAN 200MG IV DAILY, RESPIRATORY TX, COUMADIN 5MG PO HS, AVODART 0.5MG PO DAILY, TERAZOSIN 2MG PO BID, SUPPLEMENTAL OXYGEN, AND HOME MEDICATIONS WERE RESUMED. HE HAS BEEN ACCEPTED AT [facility] IN [place], PENDING APPROVAL BY MEDICARE. WE WILL CONTINUE WITH CURRENT PLAN OF CARE TODAY AND START LASIX 40MG IV BID. OTHERWISE, WE WILL FOLLOW UP WITH AM LABS AND CONTINUE TO MONITOR. - Past Medical Family Social History Past Med/Fam/Surg Hx: No changes since H&P Allergies: Allergies No Known Drug Allergies Allergy (Verified 11/17/19 08:56) - Review of Systems ROS: No change since H&P - Vital Signs and I&O's Vital Signs: Temperature 98.7 F Pulse Rate [Left Brachial] 98 Pulse Rate 90 Respiratory Rate 20 Blood Pressure [Right Arm] 133/74 Blood Pressure [Left Arm] 94/56 Blood Pressure 137/78 O2 Sat by Pulse Oximetry 90 Intake and Output: Intake & Output 11/26/19 11/27/19 11/28/19 11/29/19 11:59 11:59 11:59 11:59 Intake Total 2214 / 2214 1750 / 1750 1150 / 1150 2200 / 2200 Balance 2214 / 2214 1750 / 1750 1150 / 1150 2200 / 0 - Physical Exam Oriented: Person Eyes: Normal Ear: Normal Nose: Normal Throat: Normal Respiratory: Generalized, Wheezes Cardiovascular: Tachycardia. negative: S3, S4, Murmur : Normal Auscultation: Bowel Sounds: Normal Tenderness: RUQ, Mild. negative: Rebound, Guarding, Rigidity Skin: Normal Musculoskeletal: Normal Psychiatric: Normal Mood Description: Calm Affect: Normal Speech Pattern: Clear, Appropriate - Laboratory and Diagnostics Result Diagrams: 11/28/19 06:10 11/28/19 06:10 Labs: 11/18/19 23:39 Blood Blood Culture - Final 11/18/19 22:50 Blood Blood Culture - Final 11/19/19 06:34 Sputum - Expectorated Sputum Sputum Culture - Final 11/19/19 06:34 Sputum - Expectorated Sputum - Final Laboratory WBC 9.1 X10^3/uL (3.6-10.0) 11/28/19 06:10 RBC 3.14 X10^6/uL (4.7-6.0) L 11/28/19 06:10 Hgb 10.1 g/dL (13.5-18.0) L 11/28/19 06:10 Hct 29.1 % (42.0-54.0) L 11/28/19 06:10 MCV 92.7 fL (80.0-100.0) 11/28/19 06:10 MCH 32.2 pg (27.0-34.0) 11/28/19 06:10 MCHC 34.7 g/dL (33.0-35.0) 11/28/19 06:10 RDW 14.4 % (11.6-16.5) 11/28/19 06:10 Plt Count 260 X10^3/uL (150.0-450.0) 11/28/19 06:10 MPV 7.6 fL (7.4-11.0) 11/28/19 06:10 Neut % (Auto) 71.1 % (42.0-75.0) 11/28/19 06:10 Lymph % (Auto) 16.3 % (21.0-51.0) L 11/28/19 06:10 [place] % (Auto) 8.8 % (0.0-13.0) 11/28/19 06:10 Eos % (Auto) 2.5 % (0.9-2.9) 11/28/19 06:10 Baso % (Auto) 1.3 % (0.2-1.0) H 11/28/19 06:10 Neut # (Auto) 6.5 x10^3/uL (2.2-4.8) H 11/28/19 06:10 Lymph # (Auto) 1.5 X10^3/uL (1.3-2.9) 11/28/19 06:10 [place] # (Auto) 0.8 x10^3/uL (0.3-0.8) 11/28/19 06:10 Eos # (Auto) 0.2 x10^3/uL (0.0-0.2) 11/28/19 06:10 Baso # (Auto) 0.1 X10^3/uL (0.0-0.1) 11/28/19 06:10 Absolute Nucleated RBC 0.1 /100WBC 11/28/19 06:10 PT 27.0 SECONDS (11.8-14.3) 11/28/19 06:10 INR Target Range - 11/28/19 06:10 INR 2.62 (0.8-1.3) H 11/28/19 06:10 Sodium 139 mmol/L (136-145) 11/28/19 06:10 Corrected Sodium 139 mmol/L (136-145) 11/28/19 06:10 Potassium 3.0 mmol/L (3.5-5.1) L* 11/28/19 06:10 Chloride 106 mmol/L (98-107) 11/28/19 06:10 Carbon Dioxide 23.1 mmol/L (21-32) 11/28/19 06:10 BUN 15 mg/dL (7-18) 11/28/19 06:10 Creatinine 1.44 mg/dL (0.70-1.30) H 11/28/19 06:10 Est GFR (MDRD) Af Amer > 60 (>60) 11/28/19 06:10 Est GFR (MDRD) Non-Af 50 (>60) L 11/28/19 06:10 Glucose 115 mg/dL (65-99) H 11/28/19 06:10 POC Glucose (mg/dL) 101 mg/dL (65-99) H 11/28/19 20:08 Lactic Acid 0.8 mmol/L (0.4-2.0) 11/18/19 22:50 Calcium 8.2 mg/dL (8.5-10.1) L 11/28/19 06:10 Corrected Calcium 9.3 mg/dL (8.5-10.1) 11/28/19 06:10 Phosphorus 3.2 mg/dL (2.6-4.7) 11/26/19 12:16 Magnesium 1.7 mg/dL (1.7-2.9) 11/26/19 12:16 Total Bilirubin 0.30 mg/dL (0.2-1.0) 11/28/19 06:10 AST 30 Units/L (15-37) 11/28/19 06:10 ALT 37 Units/L (12-78) 11/28/19 06:10 Alkaline Phosphatase 20 Units/L (46-116) L 11/28/19 06:10 Creatine Kinase 129 Units/L (39-308) 11/21/19 18:05 CK-MB (CK-2) 3.1 ng/mL (0-4.0) 11/21/19 18:05 CK/CKMB % Calc 2.4 % (<4) 11/21/19 18:05 Troponin I < 0.02 ng/mL (0-1.5) 11/21/19 18:05 Total Protein 6.6 g/dL (6.4-8.2) 11/28/19 06:10 Albumin 2.6 g/dL (3.4-5.0) L 11/28/19 06:10 Globulin 4.0 g/dL (2.5-4.5) 11/28/19 06:10 Albumin/Globulin Ratio 0.7 Ratio (1.1-2.1) L 11/28/19 06:10 Prealbumin 13.8 mg/dL (18-35.7) L 11/27/19 06:00 Triglycerides 76 mg/dL (0-150) 11/26/19 12:16 Specimen Type Clean catch urine 11/18/19 21:30 Urine Color Dark yellow (YELLOW) 11/18/19 21:30 Urine Appearance Slightly hazy (CLEAR) 11/18/19 21:30 Urine pH 5.0 (5.0 - 8.0) 11/18/19 21:30 Ur Specific [place] 1.020 (1.000-1.030) 11/18/19 21:30 Urine Protein 2+ (NEGATIVE) 11/18/19 21:30 Urine Glucose (UA) Negative (NEGATIVE) 11/18/19 21:30 Urine Ketones 2+ (NEGATIVE) 11/18/19 21:30 Urine Occult Blood 4+ (NEGATIVE) 11/18/19 21:30 Urine Nitrite Negative (NEGATIVE) 11/18/19 21: Urine Bilirubin Negative (NEGATIVE) 11/18/19 21: Urine Urobilinogen Normal (NORMAL) 11/18/19 21:30 Ur Leukocyte Esterase Negative (NEGATIVE) 11/18/19 21:30 Urine RBC 3-5 /HPF (0-3) A 11/18/19 21:30 Urine WBC None seen /HPF (0-5) 11/18/19 21:30 Ur Squamous Epith Cells Rare /HPF (NEGATIVE) 11/18/19 21:30 Urine Bacteria Negative /HPF (NEGATIVE) 11/18/19 21:30 Urine Mucus Few /HPF (NEGATIVE) 11/18/19 16:51 Ur Culture Indicated? No/not indicated 11/18/19 21:30 - Plan (1) Pulmonary emboli Status: Acute Qualifiers: Pulmonary embolism type: multiple subsegmental (without acute cor pulmonale) Qualified Code(s): I26.94 - Multiple subsegmental pulmonary emboli without acute cor pulmonale Plan: COUMADIN 5MG PO HS, CONTINUE TO MONITOR (2) Bronchopneumonia Status: Acute Plan: NS AT 75 ML/HR, ZOSYN 3.375G IV TID, RESPIRATORY TX, LOVENOX, SUPPLEMENTAL OXYGEN, AND HOME MEDICATIONS WERE RESUMED, FOLLOW UP WITH AM LABS AND CHEST XRAY (3) Altered mental status Status: Acute Qualifiers: Altered mental status type: transient alteration of awareness Qualified Code(s): R40.4 - Transient alteration of awareness (4) Abdominal pain Status: Resolved Qualifiers: Abdominal location: right upper quadrant Qualified Code(s): R10.11 - Right upper quadrant pain Plan: CONTINUE TO MONITOR. (5) Chest pain Status: Resolved Qualifiers: Chest pain type: unspecified Qualified Code(s): R07.9 - Chest pain, unspec ified Plan: CONTINUE TO MONITOR
[2019-11-28] MEDS: K-RIDER 10 MEQ/NS 100 ML 10 MEQ/100 ML BAG IV PRN (22:58)
[2019-11-29] MEDS: K-RIDER 10 MEQ/NS 100 ML 10 MEQ/100 ML BAG IV PRN ×7 (00:15→22:59)
[2019-11-29] MEDS: DUONEB 0.5 MG/3 MG (3 mL) NEB SCH ×5 (00:38→19:00)
[2019-11-29] MEDS: NS 1000 ML 1,000 ML IV SCH ×2 (03:48→15:39)
[2019-11-29] MEDS: ULTRAM PO SCH ×4 (03:51→21:13)
--- NOTE | 2019-11-29 06:43 | RAD ---
HISTORYSOBSTUDYPortable AP chestCOMPARISONYesterday November 27FINDINGSThere is unchanged cardiomegaly with a tortuous aorta. There is chronic elevation of the right hemidiaphragm. Visualized lungs are clear. There is no obvious effusion.IMPRESSIONUnchanged cardiomegaly, no definite acute diseaseElectronically signed by: FE STYLES (Nov 29, 2019 06:41:22)
[2019-11-29 06:59] LABS: ALANINE AMINOTRANSFERASE 38 Units/L (12-78); ALBUMIN 3.1 g/dL (3.4-5.0); ALKALINE PHOSPHATASE 21 Units/L (46-116); ASPARTATE AMINO TRANSFERASE 33 Units/L (15-37); BLOOD UREA NITROGEN 16 mg/dL (7-18); CALCIUM 8.4 mg/dL (8.5-10.1); CARBON DIOXIDE 21.6 mmol/L (21-32); CHLORIDE 102 mmol/L (98-107); COR CA(FOR HYPOALB) 9.1 mg/dL (8.5-10.1); CREATININE 1.91 mg/dL (0.70-1.30); SODIUM 136 mmol/L (136-145); TOTAL PROTEIN 7.2 g/dL (6.4-8.2); eGFR NON BLACK RACES 36 (>60)
[2019-11-29 08:29] LABS: BASOPHILS # (AUTO) 0.1 X10^3/uL (0.0-0.1); BASOPHILS % (AUTO) 0.8 % (0.2-1.0); EOSINOPHILS # (AUTO) 0.3 x10^3/uL (0.0-0.2); EOSINOPHILS % (AUTO) 2.7 % (0.9-2.9); HEMATOCRIT 31.3 % (42.0-54.0); HEMOGLOBIN 10.8 g/dL (13.5-18.0); LYMPHOCYTES # (AUTO) 1.6 X10^3/uL (1.3-2.9); LYMPHOCYTES % (AUTO) 16.2 % (21.0-51.0); MEAN CORPUSCULAR HGB CONC 34.4 g/dL (33.0-35.0); MEAN CORPUSCULAR VOLUME 92.9 fL (80.0-100.0); MEAN PLATELET VOLUME 8.2 fL (7.4-11.0); MONOCYTES # (AUTO) 0.9 x10^3/uL (0.3-0.8); MONOCYTES % (AUTO) 9.2 % (0.0-13.0); NEUTROPHILS % (AUTO) 71.1 % (42.0-75.0); PLATELET COUNT 289 X10^3/uL (150.0-450.0); RED BLOOD COUNT 3.37 X10^6/uL (4.7-6.0); RED CELL DISTRIBUTION WIDTH 14.6 % (11.6-16.5); WHITE BLOOD COUNT 9.8 X10^3/uL (3.6-10.0)
[2019-11-29] MEDS: ARICEPT TAB 10 MG PO SCH (10:57)
[2019-11-29] MEDS: SYNTHROID 25 mcg TAB PO SCH (10:57)
[2019-11-29] MEDS: AVODART PO SCH (10:57)
[2019-11-29] MEDS: LOPRESSOR TAB 25 MG PO SCH (10:58)
[2019-11-29] MEDS: DITROPAN TAB 5 MG PO SCH (10:58)
[2019-11-29] MEDS: ASPIRIN EC 81 MG PO SCH (10:58)
[2019-11-29] MEDS: [UNRECOGNIZED DRUG - OTHER] IV SCH ×4 (11:01)
[2019-11-29] MEDS: CLINIMIX IV SCH ×4 (11:01)
[2019-11-29] MEDS: MVI IV SCH ×4 (11:01)
[2019-11-29] MEDS: ALBUMIN HUMAN 25%- 100 ML 100 ML IV SCH (11:01)
[2019-11-29] MEDS: TPN ELECTROLYTES IV SCH ×4 (11:01)
[2019-11-29] MEDS: ROBITUSSIN DM PO SCH ×2 (11:29→13:41)
[2019-11-29] MEDS: PULMICORT NEB TX 0.5 MG NEB SCH ×2 (11:56→20:40)
[2019-11-29 12:44] LABS: MAGNESIUM 1.7 mg/dL (1.7-2.9); PHOSPHORUS 2.4 mg/dL (2.6-4.7)
[2019-11-29] MEDS: DIFLUCAN 100 MG IV (MIX by PHARMACY)* 100 MG/50 ML BAG IV SCH (13:15)
[2019-11-29] MEDS: HYTRIN PO SCH ×2 (13:18→21:12)
[2019-11-29] MEDS: MAGNESIUM SULFATE 1 GRAM/100 mL PREMIX 1 GM/100 ML BAG IV PRN ×2 (21:13→22:59)
[2019-11-29] MEDS: ROBITUSSIN DM PO PRN (23:24)
[2019-11-30] MEDS: DUONEB 0.5 MG/3 MG (3 mL) NEB SCH ×4 (00:35→17:01)
[2019-11-30] MEDS: ULTRAM PO SCH ×4 (03:45→20:33)
[2019-11-30] MEDS: NS 1000 ML 1,000 ML IV SCH ×2 (05:43→17:16)
[2019-11-30 06:18] LABS: BASOPHILS # (AUTO) 0.1 X10^3/uL (0.0-0.1); BASOPHILS % (AUTO) 0.4 % (0.2-1.0); EOSINOPHILS # (AUTO) 0.1 x10^3/uL (0.0-0.2); HEMATOCRIT 29.2 % (42.0-54.0); HEMOGLOBIN 10.2 g/dL (13.5-18.0); LYMPHOCYTES # (AUTO) 1.2 X10^3/uL (1.3-2.9); LYMPHOCYTES % (AUTO) 10.1 % (21.0-51.0); MEAN CORPUSCULAR HEMOGLOBIN 32.4 pg (27.0-34.0); MEAN CORPUSCULAR VOLUME 92.6 fL (80.0-100.0); MEAN PLATELET VOLUME 8.4 fL (7.4-11.0); MONOCYTES # (AUTO) 0.9 x10^3/uL (0.3-0.8); MONOCYTES % (AUTO) 7.7 % (0.0-13.0); NEUTROPHILS # (AUTO) 9.3 x10^3/uL (2.2-4.8); NEUTROPHILS % (AUTO) 80.8 % (42.0-75.0); PLATELET COUNT 277 X10^3/uL (150.0-450.0); RED BLOOD COUNT 3.15 X10^6/uL (4.7-6.0); RED CELL DISTRIBUTION WIDTH 14.6 % (11.6-16.5); WHITE BLOOD COUNT 11.6 X10^3/uL (3.6-10.0)
[2019-11-30 06:22] LABS: CALCIUM 8.6 mg/dL (8.5-10.1); CARBON DIOXIDE 23.2 mmol/L (21-32); CREATININE 1.71 mg/dL (0.70-1.30)
[2019-11-30] MEDS: K-RIDER 10 MEQ/NS 100 ML 10 MEQ/100 ML BAG IV PRN (06:40)
[2019-11-30] MEDS: PULMICORT NEB TX 0.5 MG NEB SCH ×2 (08:51→20:15)
[2019-11-30] MEDS: HYTRIN PO SCH ×2 (10:26→20:33)
[2019-11-30] MEDS: ASPIRIN EC 81 MG PO SCH (10:27)
[2019-11-30] MEDS: ALBUMIN HUMAN 25%- 100 ML 100 ML IV SCH (10:27)
[2019-11-30] MEDS: DITROPAN TAB 5 MG PO SCH (10:27)
[2019-11-30] MEDS: LOPRESSOR TAB 25 MG PO SCH (10:27)
[2019-11-30] MEDS: ARICEPT TAB 10 MG PO SCH (10:27)
[2019-11-30] MEDS: SYNTHROID 25 mcg TAB PO SCH (10:27)
[2019-11-30] MEDS: AVODART PO SCH (10:41)
[2019-11-30] MEDS: DIFLUCAN 100 MG IV (MIX by PHARMACY)* 100 MG/50 ML BAG IV SCH (10:43)
--- NOTE | 2019-11-30 11:12 | PCM.PROG ---
Progress Note Progress Note for Day of Date of Exam: 11/30/19 Subjective Subjective: IS BEING TREATED FOR MULTIPLE PULMONARY EMBOLI, BRONCHOPNEUMONIA, AND ALTERED MENTAL STATUS. THIS MORNING HE IS SLEEPING COMFORTABLY. PER FAMILY, HIS SLEEP SCHEDULE HAS BEEN OFF WHERE HE IS STAYING UP LATER IN THE NIGHT AND THEN SLEEPING MORE DURING THE DAY. HE CONTINUES TO HAVE COUGH, SHORTNESS OF BREATH, WEAKNESS, ALONG WITH UNSTEADY GAIT, AND DIFFICULTY URINATING. ON EXAMINATION, HEART IS REGULAR IN RATE AND RHYTHM. BILATERAL LUNGS ARE NOTED WITH DIMINISHED LUNG SOUNDS THROUGHOUT. ABDOMEN IS ROUND, NOTED ABDOMINAL DISTENTION, WILL GET KUB TO EVALUATE. VS WNL. LABS: HGB 10.1>10.2, INR 3.17>3.26, POTASSIUM 3.4, CREATININE 1.71. HE IS CURRENTLY RECEIVING TPN, ALBUMIN, NS AT 75 ML/HR, DIFLUCAN, AVODART 0.5MG PO DAILY, TERAZOSIN 2MG PO BID, SUPPLEMENTAL OXYGEN, AND HOME MEDICATIONS, WITH IV LASIX 40MG BID AND COUMADIN 5MG PO HS ON HOLD. HE HAS BEEN ACCEPTED AT THE [facility] IN [place], PENDING APPROVAL BY MEDICARE. CONTINUE TO MONITOR AND FOLLOW UP LABS IN THE MORNING. Past Medical Family Social History Past Med/Fam/Surg Hx: No changes since H&P Allergies: Allergies No Known Drug Allergies Allergy (Verified 11/17/19 08:56) Review of Systems ROS: No change since H&P Vital Signs and I&O's Vital Signs: Temperature 98.9 F Pulse Rate [Left Brachial] 106 Pulse Rate 84 Respiratory Rate 24 Blood Pressure [Right Arm] 164/88 Blood Pressure [Left Arm] 94/56 Blood Pressure 137/78 O2 Sat by Pulse Oximetry 93 Intake and Output: Intake & Output 11/27/19 11/28/19 11/29/19 11/30/19 23:59 23:59 23:59 23:59 Intake Total 1430 / 1430 3330 / 3330 2190 / 2190 350 / 350 Balance 1430 / 1430 3330 / 3330 2190 / 2190 350 / 350 Physical Exam Oriented: Person Eyes: Normal Ear: Normal Nose: Normal Throat: Normal Respiratory: Generalized and Wheezes Cardiovascular: Tachycardia; negative S3, S4 and Murmur : Normal Auscultation: Bowel Sounds: Normal Tenderness: RUQ and Mild; negative Rebound, Guarding and Rigidity Skin: Normal Musculoskeletal: Normal Psychiatric: Normal Mood Description: Calm Affect: Normal Speech Pattern: Clear and Appropriate Laboratory and Diagnostics Result Diagrams: 11/30/19 05:44 11/30/19 05:44 Labs: 11/18/19 23:39 Blood Blood Culture - Final 11/18/19 22:50 Blood Blood Culture - Final 11/19/19 06:34 Sputum - Expectorated Sputum Sputum Culture - Final 11/19/19 06:34 Sputum - Expectorated Sputum - Final Laboratory WBC 11.6 X10^3/uL (3.6-10.0) H 11/30/19 05:44 RBC 3.15 X10^6/uL (4.7-6.0) L 11/30/19 05:44 Hgb 10.2 g/dL (13.5-18.0) L 11/30/19 05:44 Hct 29.2 % (42.0-54.0) L 11/30/19 05:44 MCV 92.6 fL (80.0-100.0) 11/30/19 05:44 MCH 32.4 pg (27.0-34.0) 11/30/19 05:44 MCHC 35.0 g/dL (33.0-35.0) 11/30/19 05:44 RDW 14.6 % (11.6-16.5) 11/30/19 05:44 Plt Count 277 X10^3/uL (150.0-450.0) 11/30/19 05:44 MPV 8.4 fL (7.4-11.0) 11/30/19 05:44 Neut % (Auto) 80.8 % (42.0-75.0) H 11/30/19 05:44 Lymph % (Auto) 10.1 % (21.0-51.0) L 11/30/19 05:44 [place] % (Auto) 7.7 % (0.0-13.0) 11/30/19 05:44 Eos % (Auto) 1.0 % (0.9-2.9) 11/30/19 05:44 Baso % (Auto) 0.4 % (0.2-1.0) 11/30/19 05:44 Neut # (Auto) 9.3 x10^3/uL (2.2-4.8) H 11/30/19 05:44 Lymph # (Auto) 1.2 X10^3/uL (1.3-2.9) L 11/30/19 05:44 [place] # (Auto) 0.9 x10^3/uL (0.3-0.8) H 11/30/19 05:44 Eos # (Auto) 0.1 x10^3/uL (0.0-0.2) 11/30/19 05:44 Baso # (Auto) 0.1 X10^3/uL (0.0-0.1) 11/30/19 05:44 Absolute Nucleated RBC 0.0 /100WBC 11/30/19 05:44 PT 32.0 SECONDS (11.8-14.3) 11/30/19 05:44 INR Target Range - 11/30/19 05:44 INR 3.26 (0.8-1.3) H 11/30/19 05:44 Sodium 136 mmol/L (136-145) 11/30/19 05:44 Corrected Sodium 137 mmol/L (136-145) 11/30/19 05:44 Potassium 3.4 mmol/L (3.5-5.1) L 11/30/19 05:44 Chloride 103 mmol/L (98-107) 11/30/19 05:44 Carbon Dioxide 23.2 mmol/L (21-32) 11/30/19 05:44 BUN 20 mg/dL (7-18) H 11/30/19 05:44 Creatinine 1.71 mg/dL (0.70-1.30) H 11/30/19 05:44 Est GFR (MDRD) Af Amer 50 (>60) L 11/30/19 05:44 Est GFR (MDRD) Non-Af 41 (>60) L 11/30/19 05:44 Glucose 127 mg/dL (65-99) H 11/30/19 05:44 POC Glucose (mg/dL) 106 mg/dL (65-99) H 11/30/19 04:37 Lactic Acid 0.8 mmol/L (0.4-2.0) 11/18/19 22:50 Calcium 8.6 mg/dL (8.5-10.1) 11/30/19 05:44 Corrected Calcium 9.1 mg/dL (8.5-10.1) 11/29/19 05:21 Phosphorus 2.4 mg/dL (2.6-4.7) L 11/29/19 12:28 Magnesium 2.0 mg/dL (1.7-2.9) 11/30/19 05:44 Total Bilirubin 0.40 mg/dL (0.2-1.0) 11/29/19 05:21 AST 33 Units/L (15-37) 11/29/19 05:21 ALT 38 Units/L (12-78) 11/29/19 05:21 Alkaline Phosphatase 21 Units/L (46-116) L 11/29/19 05:21 Creatine Kinase 129 Units/L (39-308) 11/21/19 18:05 CK-MB (CK-2) 3.1 ng/mL (0-4.0) 11/21/19 18:05 CK/CKMB % Calc 2.4 % (<4) 11/21/19 18:05 Troponin I < 0.02 ng/mL (0-1.5) 11/21/19 18:05 Total Protein 7.2 g/dL (6.4-8.2) 11/29/19 05:21 Albumin 3.1 g/dL (3.4-5.0) L 11/29/19 05:21 Globulin 4.1 g/dL (2.5-4.5) 11/29/19 05:21 Albumin/Globulin Ratio 0.8 Ratio (1.1-2.1) L 11/29/19 05:21 Prealbumin 13.8 mg/dL (18-35.7) L 11/27/19 06:00 Triglycerides 83 mg/dL (0-150) 11/29/19 12:28 Specimen Type Clean catch urine 11/18/19 21:30 Urine Color Dark yellow (YELLOW) 11/18/19 21:30 Urine Appearance Slightly hazy (CLEAR) 11/18/19 21:30 Urine pH 5.0 (5.0 - 8.0) 11/18/19 21:30 Ur Specific [place] 1.020 (1.000-1.030) 11/18/19 21:30 Urine Protein 2+ (NEGATIVE) 11/18/19 21:30 Urine Glucose (UA) Negative (NEGATIVE) 11/18/19 21:30 Urine Ketones 2+ (NEGATIVE) 11/18/19 21:30 Urine Occult Blood 4+ (NEGATIVE) 11/18/19 21:30 Urine Nitrite Negative (NEGATIVE) 11/18/19 21:30 Urine Bilirubin Negative (NEGATIVE) 11/18/19 21:30 Urine Urobilinogen Normal (NORMAL) 11/18/19 21:30 Ur Leukocyte Esterase Negative (NEGATIVE) 11/18/19 21:30 Urine RBC 3-5 /HPF (0-3) A 11/18/19 21:30 Urine WBC None seen /HPF (0-5) 11/18/19 21:30 Ur Squamous Epith Cells Rare /HPF (NEGATIVE) 11/18/19 21:30 Urine Bacteria Negative /HPF (NEGATIVE) 11/18/19 21:30 Urine Mucus Few /HPF (NEGATIVE) 11/18/19 16:51 Ur Culture Indicated? No/not indicated 11/18/19 21:30 Plan (1) Pulmonary emboli: Status: Acute Qualifiers: Pulmonary embolism type: multiple subsegmental (without acute cor pulmonale) Qualified Code(s): I26.94 - Multiple subsegmental pulmonary emboli without acute cor pulmonale Plan: COUMADIN 5MG PO HS, INR SUPRATHERAPEUTIC, HOLDING COUMADIN (2) Bronchopneumonia: Status: Acute (3) Altered mental status: Status: Acute Qualifiers: Altered mental status type: transient alteration of awareness Qualified Code(s): R40.4 - Transient alteration of awareness (4) Abdominal pain: Status: Resolved Qualifiers: Abdominal location: right upper quadrant Qualified Code(s): R10.11 - Right upper quadrant pain Plan: CONTINUE TO MONITOR. (5) Chest pain: Status: Resolved Qualifiers: Chest pain type: unspecified Qualified Code(s): R07.9 - Chest pain, unspecified Plan: CONTINUE TO MONITOR
[2019-11-30] MEDS: MVI IV SCH ×4 (11:55)
[2019-11-30] MEDS: [UNRECOGNIZED DRUG - OTHER] IV SCH ×4 (11:55)
[2019-11-30] MEDS: CLINIMIX IV SCH ×4 (11:55)
[2019-11-30] MEDS: TPN ELECTROLYTES IV SCH ×4 (11:55)
--- NOTE | 2019-11-30 12:06 | RAD ---
HISTORYAbdominal distension.STUDYKUBCOMPARISONCT dated 11/21/2019.FINDINGSTwo AP views of the abdomen were obtained. The lateral aspect of the right abdomen is excluded. There is a nonobstructive bowel gas pattern. There is gas scattered throughout the visualized portions of the colon. The bony structures are grossly intact.IMPRESSIONNonobstructive bowel gas pattern.Electronically signed by: PAIGE VICTORIA (Nov 30, 2019 12:04:33)
[2019-11-30] MEDS: ROBITUSSIN DM PO PRN (20:33)
[2019-11-30] MEDS: ZOFRAN INJ 4 MG VIAL IVP PRN (20:33)
[2019-12-01] MEDS: DUONEB 0.5 MG/3 MG (3 mL) NEB SCH ×4 (00:25→17:06)
[2019-12-01] MEDS: ULTRAM PO SCH ×4 (03:25→20:51)
[2019-12-01] MEDS: NS 1000 ML 1,000 ML IV SCH ×2 (05:06→20:49)
[2019-12-01] MEDS: ZOFRAN INJ 4 MG VIAL IVP PRN (05:40)
[2019-12-01 06:30] LABS: BLOOD UREA NITROGEN 19 mg/dL (7-18); CALCIUM 8.4 mg/dL (8.5-10.1); CARBON DIOXIDE 21.7 mmol/L (21-32); CHLORIDE 102 mmol/L (98-107); COR NA(FOR HYPERGLY) 136 mmol/L (136-145); CREATININE 1.37 mg/dL (0.70-1.30); SODIUM 135 mmol/L (136-145); eGFR NON BLACK RACES 53 (>60)
[2019-12-01] MEDS: PULMICORT NEB TX 0.5 MG NEB SCH ×3 (08:54→20:15)
[2019-12-01] MEDS: ALBUMIN HUMAN 25%- 100 ML 100 ML IV SCH (09:08)
[2019-12-01] MEDS: ASPIRIN EC 81 MG PO SCH (10:20)
[2019-12-01] MEDS: AVODART PO SCH (10:20)
[2019-12-01] MEDS: ARICEPT TAB 10 MG PO SCH (10:20)
[2019-12-01] MEDS: HYTRIN PO SCH ×2 (10:21→20:49)
[2019-12-01] MEDS: DITROPAN TAB 5 MG PO SCH (10:21)
[2019-12-01] MEDS: SYNTHROID 25 mcg TAB PO SCH (10:24)
[2019-12-01] MEDS: DIFLUCAN 100 MG IV (MIX by PHARMACY)* 100 MG/50 ML BAG IV SCH (10:25)
[2019-12-01] MEDS: LOPRESSOR TAB 25 MG PO SCH (10:25)
[2019-12-01] MEDS: MUCOMYST 20% 200 MG/ML NEB SCH ×2 (11:51→17:06)
--- NOTE | 2019-12-01 12:02 | RAD ---
HISTORYpneumoniaSTUDYCHEST, [facility]COM[facility]ISON[facility] 2019FINDINGSThe patient is rotated. The cardiac silhouette is enlarged. Bibasilar atelectasis and/or infiltrate are noted. Small bilateral pleural effusions cannot be excluded.IMPRESSIONCardiomegaly.Bibasilar atelectasis and/or infiltrate. Small bilateral pleural effusions cannot be excluded.Electronically signed by: DENY HILL (Dec 01, 2019 12:00:38)
--- NOTE | 2019-12-01 12:55 | PCM.PROG ---
Progress Note Progress Note for Day of Date of Exam: 12/01/19 Subjective Subjective: IS BEING TREATED FOR MULTIPLE PULMONARY EMBOLI, BRONCHOPNEUMONIA, AND ALTERED MENTAL STATUS. THIS MORNING HE IS SITTING UP, PER FAMILY, HE HAS BEEN COUGHING FREQUENTLY. ON EXAMINATION, HEART IS REGULAR IN RATE AND RHYTHM. BILATERAL LUNGS ARE NOTED WITH DIMINISHED LUNG SOUNDS THR OUGHOUT. ABDOMEN IS ROUND, NOTED ABDOMINAL DISTENTION YESTERDAY AND KUB NORMAL BOWEL GAS PATTERN. VS WNL. HE IS CURRENTLY RECEIVING TPN, ALBUMIN, NS AT 75 ML/HR, DIFLUCAN, AVODART 0.5MG PO DAILY, TERAZOSIN 2MG PO BID, SUPPLEMENTAL OXYGEN, AND HOME MEDICATIONS, WITH IV LASIX 40MG BID AND COUMADIN 5MG PO HS ON HOLD. INR TODAY 3.21. HE HAS BEEN ACCEPTED AT THE [facility] IN [place], PENDING APPROVAL BY MEDICARE. CONTINUE TO MONITOR AND FOLLOW UP LABS IN THE MORNING. Past Medical Family Social History Past Med/Fam/Surg Hx: No changes since H&P Allergies: Allergies No Known Drug Allergies Allergy (Verified 11/17/19 08:56) Review of Systems ROS: No change since H&P Vital Signs and I&O's Vital Signs: Temperature 99.4 F Pulse Rate [Left Brachial] 86 Pulse Rate 90 Respiratory Rate 18 Blood Pressure [Right Arm] 123/72 Blood Pressure [Left Arm] 94/56 Blood Pressure 137/78 O2 Sat by Pulse Oximetry 94 Intake and Output: Intake & Output 11/28/19 11/29/19 11/30/19 12/02/19 23:59 23:59 23:59 00:59 Intake Total 3330 / 3330 2190 / 2190 1270 / 1270 Balance 3330 / 3330 2190 / 2190 1270 / 1270 Physical Exam Oriented: Person Eyes: Normal Ear: Normal Nose: Normal Throat: Normal Respiratory: Generalized and Wheezes Cardiovascular: Tachycardia; negative S3, S4 and Murmur : Normal Auscultation: Bowel Sounds: Normal Tenderness: RUQ and Mild; negative Rebound, Guarding and Rigidity Skin: Normal Musculoskeletal: Normal Psychiatric: Normal Mood Description: Calm Affect: Normal Speech Pattern: Clear and Appropriate Laboratory and Diagnostics Result Diagrams: 11/30/19 05:44 12/01/19 06:01 Labs: 11/18/19 23:39 Blood Blood Culture - Final 11/18/19 22:50 Blood Blood Culture - Final 11/19/19 06:34 Sputum - Expectorated Sputum Sputum Culture - Final 11/19/19 06:34 Sputum - Expectorated Sputum - Final Laboratory WBC 11.6 X10^3/uL (3.6-10.0) H 11/30/19 05:44 RBC 3.15 X10^6/uL (4.7-6.0) L 11/30/19 05:44 Hgb 10.2 g/dL (13.5-18.0) L 11/30/19 05:44 Hct 29.2 % (42.0-54.0) L 11/30/19 05:44 MCV 92.6 fL (80.0-100.0) 11/30/19 05:44 MCH 32.4 pg (27.0-34.0) 11/30/19 05:44 MCHC 35.0 g/dL (33.0-35.0) 11/30/19 05:44 RDW 14.6 % (11.6-16.5) 11/30/19 05:44 Plt Count 277 X10^3/uL (150.0-450.0) 11/30/19 05:44 MPV 8.4 fL (7.4-11.0) 11/30/19 05:44 Neut % (Auto) 80.8 % (42.0-75.0) H 11/30/19 05:44 Lymph % (Auto) 10.1 % (21.0-51.0) L 11/30/19 05:44 [place] % (Auto) 7.7 % (0.0-13.0) 11/30/19 05:44 Eos % (Auto) 1.0 % (0.9-2.9) 11/30/19 05:44 Baso % (Auto) 0.4 % (0.2-1.0) 11/30/19 05:44 Neut # (Auto) 9.3 x10^3/uL (2.2-4.8) H 11/30/19 05:44 Lymph # (Auto) 1.2 X10^3/uL (1.3-2.9) L 11/30/19 05:44 [place] # (Auto) 0.9 x10^3/uL (0.3-0.8) H 11/30/19 05:44 Eos # (Auto) 0.1 x10^3/uL (0.0-0.2) 11/30/19 05:44 Baso # (Auto) 0.1 X10^3/uL (0.0-0.1) 11/30/19 05:44 Absolute Nucleated RBC 0.0 /100WBC 11/30/19 05:44 PT 31.6 SECONDS (11.8-14.3) 12/01/19 06:01 INR Target Range - 12/01/19 06:01 INR 3.21 (0.8-1.3) H 12/01/19 06:01 Sodium 135 mmol/L (136-145) L 12/01/19 06:01 Corrected Sodium 136 mmol/L (136-145) 12/01/19 06:01 Potassium 3.7 mmol/L (3.5-5.1) 12/01/19 06:01 Chloride 102 mmol/L (98-107) 12/01/19 06:01 Carbon Dioxide 21.7 mmol/L (21-32) 12/01/19 06:01 BUN 19 mg/dL (7-18) H 12/01/19 06:01 Creatinine 1.37 mg/dL (0.70-1.30) H 12/01/19 06:01 Est GFR (MDRD) Af Amer > 60 (>60) 12/01/19 06:01 Est GFR (MDRD) Non-Af 53 (>60) L 12/01/19 06:01 Glucose 124 mg/dL (65-99) H 12/01/19 06:01 POC Glucose (mg/dL) 118 mg/dL (65-99) H 12/01/19 11:43 Lactic Acid 0.8 mmol/L (0.4-2.0) 11/18/19 22:50 Calcium 8.4 mg/dL (8.5-10.1) L 12/01/19 06:01 Corrected Calcium 9.1 mg/dL (8.5-10.1) 11/29/19 05:21 Phosphorus 2.4 mg/dL (2.6-4.7) L 11/29/19 12:28 Magnesium 2.0 mg/dL (1.7-2.9) 11/30/19 05:44 Total Bilirubin 0.40 mg/dL (0.2-1.0) 11/29/19 05:21 AST 33 Units/L (15-37) 11/29/19 05:21 ALT 38 Units/L (12-78) 11/29/19 05:21 Alkaline Phosphatase 21 Units/L (46-116) L 11/29/19 05:21 Creatine Kinase 129 Units/L (39-308) 11/21/19 18:05 CK-MB (CK-2) 3.1 ng/mL (0-4.0) 11/21/19 18:05 CK/CKMB % Calc 2.4 % (<4) 11/21/19 18:05 Troponin I < 0.02 ng/mL (0-1.5) 11/21/19 18:05 Total Protein 7.2 g/dL (6.4-8.2) 11/29/19 05:21 Albumin 3.1 g/dL (3.4-5.0) L 11/29/19 05:21 Globulin 4.1 g/dL (2.5-4.5) 11/29/19 05:21 Albumin/Globulin Ratio 0.8 Ratio (1.1-2.1) L 11/29/19 05:21 Prealbumin 13.8 mg/dL (18-35.7) L 11/27/19 06:00 Triglycerides 83 mg/dL (0-150) 11/29/19 12:28 Specimen Type Clean catch urine 11/18/19 21:30 Urine Color Dark yellow (YELLOW) 11/18/19 21:30 Urine Appearance Slightly hazy (CLEAR) 11/18/19 21:30 Urine pH 5.0 (5.0 - 8.0) 11/18/19 21:30 Ur Specific [place] 1.020 (1.000-1.030) 11/18/19 21:30 Urine Protein 2+ (NEGATIVE) 11/18/19 21:30 Urine Glucose (UA) Negative (NEGATIVE) 11/18/19 21:30 Urine Ketones 2+ (NEGATIVE) 11/18/19 21:30 Urine Occult Blood 4+ (NEGATIVE) 11/18/19 21: Urine Nitrite Negative (NEGATIVE) 11/18/19 21:30 Urine Bilirubin Negative (NEGATIVE) 11/18/19 21:30 Urine Urobilinogen Normal (NORMAL) 11/18/19 21:30 Ur Leukocyte Esterase Negative (NEGATIVE) 11/18/19 21:30 Urine RBC 3-5 /HPF (0-3) A 11/18/19 21:30 Urine WBC None seen /HPF (0-5) 11/18/19 21:30 Ur Squamous Epith Cells Rare /HPF (NEGATIVE) 11/18/19 21:30 Urine Bacteria Negative /HPF (NEGATIVE) 11/18/19 21:30 Urine Mucus Few /HPF (NEGATIVE) 11/18/19 16:51 Ur Culture Indicated? No/not indicated 11/18/19 21:30 Plan (1) Pulmonary emboli: Status: Acute Qualifiers: Pulmonary embolism type: multiple subsegmental (without acute cor pulmonale) Qualified Code(s): I26.94 - Multiple subsegmental pulmonary emboli without acute cor pulmonale Plan: COUMADIN 5MG PO HS, INR SUPRATHERAPEUTIC, HOLDING COUMADIN (2) Bronchopneumonia: Status: Acute Plan: NS AT 75 ML/HR, ZOSYN 3.375G IV TID, RESPIRATORY TX, LOVENOX, SUP PLEMENTAL OXYGEN, AND HOME MEDICATIONS WERE RESUMED, FOLLOW UP WITH AM LABS. (3) Altered mental status: Status: Acute Qualifiers: Altered mental status type: transient alteration of awareness Qualified Code(s): R40.4 - Transient alteration of awareness (4) Abdominal pain: Status: Resolved Qualifiers: Abdominal location: right upper quadrant Qualified Code(s): R10.11 - Right upper quadrant pain Plan: CONTINUE TO MONITOR. (5) Chest pain: Status: Resolved Qualifiers: Chest pain type: unspecified Qualified Code(s): R07.9 - Chest pain, unspecified Plan: CONTINUE TO MONITOR
[2019-12-01] MEDS: MVI IV SCH ×4 (17:48)
[2019-12-01] MEDS: [UNRECOGNIZED DRUG - OTHER] IV SCH ×4 (17:48)
[2019-12-01] MEDS: CLINIMIX IV SCH ×4 (17:48)
[2019-12-01] MEDS: TPN ELECTROLYTES IV SCH ×4 (17:48)
--- NOTE | 2019-12-01 23:24 | PCM.PROG ---
Progress Note - Progress Note for Day of Date of Exam: 11/29/19 - Subjective Subjective: IS BEING TREATED FOR MULTIPLE PULMONARY EMBOLI, BRONCHOPNEUMONIA, AND ALTERED MENTAL STATUS. TODAY, HE IS ALERT AND ORIENTED, SITTING UP IN BED ON MORNING ROUNDS. HE CONTINUES WITH COMPLAINTS OF COUGH, SHORTNESS OF BREATH, AND WEAKNESS, BUT REPORTS IMPROVEMENT SINCE YESTERDAY. CHRISTOFER ORDOÑEZ REPORTS THAT HE CONTINUES WITH UNSTEADY GAIT AND ALSO WITH DIFFICULTY URINATING. ON EXAMINATION, HEART IS REGULAR IN RATE AND RHYTHM. BILATERAL LUNGS ARE NOTED WITH DIMINISHED LUNG SOUNDS THROUGHOUT. ABDOMEN IS ROUND, SOFT, AND NOTED WITH RUQ TENDERNESS. HIS VITALS THIS MORNING ARE: 97.9-90-20-91%RA-132/66. LABS WERE OBTAINED. ABNORMAL LAB VALUES INCLUDE THE FOLLOWING: RBC 3.37, HGB 10.8, HCT 31.3, INR 3.17, CREATININE 1.91, GLUCOSE 106, CALCIUM 8.4, ALK PHOS 21, ALBUMIN 3.1. HE IS CURRENTLY RECEIVING TPN, ALBUMIN, NS AT 75 ML/HR, ZOSYN 3.375G IV TID, DIFLUCAN 200MG IV DAILY, RESPIRATORY TX, COUMADIN 5MG PO HS, AVODART 0.5MG PO DAILY, TERAZOSIN 2MG PO BID, SUPPLEMENTAL OXYGEN, AND HOME MEDICATIONS WERE RESUMED. HE HAS BEEN ACCEPTED AT THE [facility] IN [place], PENDING APPROVAL BY MEDICARE. WE WILL CONTINUE WITH CURRENT PLAN OF CARE TODAY. OTHERWISE, WE WILL FOLLOW UP WITH AM LABS AND CONTINUE TO MONITOR. - Past Medical Family Social History Past Med/Fam/Surg Hx: No changes since H&P Allergies: Allergies No Known Drug Allergies Allergy (Verified 11/17/19 08:56) - Review of Systems ROS: No change since H&P - Vital Signs and I&O's Vital Signs: Temperature 98.5 F Pulse Rate [Left Brachial] 95 Pulse Rate 94 Respiratory Rate 18 Blood Pressure [Right Arm] 161/77 Blood Pressure [Left Arm] 94/56 Blood Pressure 137/78 O2 Sat by Pulse Oximetry 98 Intake and Output: Intake & Output 11/29/19 11/30/19 12/01/19 12/02/19 10:59 10:59 11:59 11:59 Intake Total 560 / 560 Balance 560 / 560 - Physical Exam Oriented: Person Eyes: Normal Ear: Normal Nose: Normal Throat: Normal Respiratory: Generalized, Diminished Cardiovascular: Normal. negative: S3, S4, Murmur : Normal Auscultation: Bowel Sounds: Normal Palpation: Normal Tenderness: Normal. negative: Rebound, Guarding, Rigidity Skin: Normal Musculoskeletal: Normal Psychiatric: Normal Mood Description: Calm Affect: Normal Speech Pattern: Clear, Appropriate - Laboratory and Diagnostics Result Diagrams: 11/30/19 05:44 12/01/19 06:01 Labs: 11/18/19 23:39 Blood Blood Culture - Final 11/18/19 22:50 Blood Blood Culture - Final 11/19/19 06:34 Sputum - Expectorated Sputum Sputum Culture - Final 11/19/19 06:34 Sputum - Expectorated Sputum - Final Laboratory WBC 11.6 X10^3/uL (3.6-10.0) H 11/30/19 05:44 RBC 3.15 X10^6/uL (4.7-6.0) L 11/30/19 05:44 Hgb 10.2 g/dL (13.5-18.0) L 11/30/19 05:44 Hct 29.2 % (42.0-54.0) L 11/30/19 05:44 MCV 92.6 fL (80.0-100.0) 11/30/19 05:44 MCH 32.4 pg (27.0-34.0) 11/30/19 05:44 MCHC 35.0 g/dL (33.0-35.0) 11/30/19 05:44 RDW 14.6 % (11.6-16.5) 11/30/19 05:44 Plt Count 277 X10^3/uL (150.0-450.0) 11/30/19 05:44 MPV 8.4 fL (7.4-11.0) 11/30/19 05:44 Neut % (Auto) 80.8 % (42.0-75.0) H 11/30/19 05:44 Lymph % (Auto) 10.1 % (21.0-51.0) L 11/30/19 05:44 [place] % (Auto) 7.7 % (0.0-13.0) 11/30/19 05:44 Eos % (Auto) 1.0 % (0.9-2.9) 11/30/19 05:44 Baso % (Auto) 0.4 % (0.2-1.0) 11/30/19 05:44 Neut # (Auto) 9.3 x10^3/uL (2.2-4.8) H 11/30/19 05:44 Lymph # (Auto) 1.2 X10^3/uL (1.3-2.9) L 11/30/19 05:44 [place] # (Auto) 0.9 x10^3/uL (0.3-0.8) H 11/30/19 05:44 Eos # (Auto) 0.1 x10^3/uL (0.0-0.2) 11/30/19 05:44 Baso # (Auto) 0.1 X10^3/uL (0.0-0.1) 11/30/19 05:44 Absolute Nucleated RBC 0.0 /100WBC 11/30/19 05:44 PT 31.6 SECONDS (11.8-14.3) 12/01/19 06:01 INR Target Range - 12/01/19 06:01 INR 3.21 (0.8-1.3) H 12/01/19 06:01 Sodium 135 mmol/L (136-145) L 12/01/19 06:01 Corrected Sodium 136 mmol/L (136-145) 12/01/19 06:01 Potassium 3.7 mmol/L (3.5-5.1) 12/01/19 06:01 Chloride 102 mmol/L (98-107) 12/01/19 06:01 Carbon Dioxide 21.7 mmol/L (21-32) 12/01/19 06:01 BUN 19 mg/dL (7-18) H 12/01/19 06:01 Creatinine 1.37 mg/dL (0.70-1.30) H 12/01/19 06:01 Est GFR (MDRD) Af Amer > 60 (>60) 12/01/19 06:01 Est GFR (MDRD) Non-Af 53 (>60) L 12/01/19 06:01 Glucose 124 mg/dL (65-99) H 12/01/19 06:01 POC Glucose (mg/dL) 104 mg/dL (65-99) H 12/01/19 20:03 Lactic Acid 0.8 mmol/L (0.4-2.0) 11/18/19 22:50 Calcium 8.4 mg/dL (8.5-10.1) L 12/01/19 06:01 Corrected Calcium 9.1 mg/dL (8.5-10.1) 11/29/19 05:21 Phosphorus 2.4 mg/dL (2.6-4.7) L 11/29/19 12:28 Magnesium 2.0 mg/dL (1.7-2.9) 11/30/19 05:44 Total Bilirubin 0.40 mg/dL (0.2-1.0) 11/29/19 05:21 AST 33 Units/L (15-37) 11/29/19 05:21 ALT 38 Units/L (12-78) 11/29/19 05:21 Alkaline Phosphatase 21 Units/L (46-116) L 11/29/19 05:21 Creatine Kinase 129 Units/L (39-308) 11/21/19 18:05 CK-MB (CK-2) 3.1 ng/mL (0-4.0) 11/21/19 18:05 CK/CKMB % Calc 2.4 % (<4) 11/21/19 18:05 Troponin I < 0.02 ng/mL (0-1.5) 11/21/19 18:05 Total Protein 7.2 g/dL (6.4-8.2) 11/29/19 05:21 Albumin 3.1 g/dL (3.4-5.0) L 11/29/19 05:21 Globulin 4.1 g/dL (2.5-4.5) 11/29/19 05:21 Albumin/Globulin Ratio 0.8 Ratio (1.1-2.1) L 11/29/19 05:21 Prealbumin 13.8 mg/dL (18-35.7) L 11/27/19 06:00 Triglycerides 83 mg/dL (0-150) 11/29/19 12:28 Specimen Type Clean catch urine 11/18/19 21:30 Urine Color Dark yellow (YELLOW) 11/18/19 21:30 Urine Appearance Slightly hazy (CLEAR) 11/18/19 21:30 Urine pH 5.0 (5.0 - 8.0) 11/18/19 21:30 Ur Specific [place] 1.020 (1.000-1.030) 11/18/19 21:30 Urine Protein 2+ (NEGATIVE) 11/18/19 21:30 Urine Glucose (UA) Negative (NEGATIVE) 11/18/19 21:30 Urine Ketones 2+ (NEGATIVE) 11/18/19 21:30 Urine Occult Blood 4+ (NEGATIVE) 11/18/19 21:30 Urine Nitrite Negative (NEGATIVE) 11/18/19 21:30 Urine Bilirubin Negative (NEGATIVE) 11/18/19 21:30 Urine Urobilinogen Normal (NORMAL) 11/18/19 21:30 Ur Leukocyte Esterase Negative (NEGATIVE) 11/18/19 21:30 Urine RBC 3-5 /HPF (0-3) A 11/18/19 21:30 Urine WBC None seen /HPF (0-5) 11/18/19 21:30 Ur Squamous Epith Cells Rare /HPF (NEGATIVE) 11/18/19 21:30 Urine Bacteria Negative /HPF (NEGATIVE) 11/18/19 21:30 Urine Mucus Few /HPF (NEGATIVE) 11/18/19 16:51 Ur Culture Indicated? No/not indicated 11/18/19 21:30 - Plan (1) Pulmonary emboli Status: Acute Qualifiers: Pulmonary embolism type: multiple subsegmental (without acute cor pulmonale) Qualified Code(s): I26.94 - Multiple subsegmental pulmonary emboli without acute cor pulmonale Plan: COUMADIN 5MG PO HS, INR SUPRATHERAPEUTIC, HOLDING COUMADIN (2) Bronchopneumonia Status: Acute Plan: NS AT 75 ML/HR, ZOSYN 3.375G IV TID, RESPIRATORY TX, SUPPLEMENTAL OXYGEN, AND HOME MEDICATIONS WERE RESUMED, FOLLOW UP WITH [facility]. (3) Altered mental status Status: Acute Qualifiers: Altered mental status type: transient alteration of awareness Qualified Code(s): R40.4 - Transient alteration of awareness (4) Abdominal pain Status: Resolved Qualifiers: Abdominal location: right upper quadrant Qualified Code(s): R10.11 - Right upper quadrant pain Plan: CONTINUE TO MONITOR. (5) Chest pain Status: Resolved Qualifiers: Chest pain type: unspecified Qualified Code(s): R07.9 - Chest pain, unspecified Plan: CONTINUE TO MONITOR
[2019-12-02] MEDS: MUCOMYST 20% 200 MG/ML NEB SCH ×3 (00:50→11:33)
[2019-12-02] MEDS: DUONEB 0.5 MG/3 MG (3 mL) NEB SCH ×3 (00:55→11:33)
[2019-12-02] MEDS: ULTRAM PO SCH ×2 (03:33→10:39)
[2019-12-02 05:57] LABS: BASOPHILS % (AUTO) 0.3 % (0.2-1.0); BLOOD UREA NITROGEN 20 mg/dL (7-18); CALCIUM 8.5 mg/dL (8.5-10.1); CARBON DIOXIDE 21.7 mmol/L (21-32); CHLORIDE 103 mmol/L (98-107); CREATININE 1.35 mg/dL (0.70-1.30); EOSINOPHILS # (AUTO) 0.2 x10^3/uL (0.0-0.2); HEMATOCRIT 30.5 % (42.0-54.0); HEMOGLOBIN 10.3 g/dL (13.5-18.0); LYMPHOCYTES # (AUTO) 1.2 X10^3/uL (1.3-2.9); LYMPHOCYTES % (AUTO) 12.1 % (21.0-51.0); MEAN CORPUSCULAR HEMOGLOBIN 31.2 pg (27.0-34.0); MEAN CORPUSCULAR HGB CONC 33.8 g/dL (33.0-35.0); MEAN CORPUSCULAR VOLUME 92.5 fL (80.0-100.0); MEAN PLATELET VOLUME 8.1 fL (7.4-11.0); MONOCYTES % (AUTO) 9.3 % (0.0-13.0); NEUTROPHILS # (AUTO) 7.9 x10^3/uL (2.2-4.8); NEUTROPHILS % (AUTO) 76.3 % (42.0-75.0); PLATELET COUNT 291 X10^3/uL (150.0-450.0); RED CELL DISTRIBUTION WIDTH 14.6 % (11.6-16.5); SODIUM 136 mmol/L (136-145); WHITE BLOOD COUNT 10.3 X10^3/uL (3.6-10.0); eGFR NON BLACK RACES 54 (>60)
[2019-12-02 06:05] LABS: MAGNESIUM 1.7 mg/dL (1.7-2.9); PHOSPHORUS 2.7 mg/dL (2.6-4.7)
[2019-12-02] MEDS: PULMICORT NEB TX 0.5 MG NEB SCH (09:04)
[2019-12-02] MEDS: ALBUMIN HUMAN 25%- 100 ML 100 ML IV SCH (09:08)
[2019-12-02] MEDS: NS 1000 ML 1,000 ML IV SCH (10:36)
[2019-12-02] MEDS: ASPIRIN EC 81 MG PO SCH (10:36)
[2019-12-02] MEDS: ARICEPT TAB 10 MG PO SCH (10:36)
[2019-12-02] MEDS: DITROPAN TAB 5 MG PO SCH ×2 (10:37→10:38)
[2019-12-02] MEDS: [UNRECOGNIZED DRUG - OTHER] IV SCH ×4 (10:37)
[2019-12-02] MEDS: MVI IV SCH ×4 (10:37)
[2019-12-02] MEDS: TPN ELECTROLYTES IV SCH ×4 (10:37)
[2019-12-02] MEDS: AVODART PO SCH (10:37)
[2019-12-02] MEDS: CLINIMIX IV SCH ×4 (10:37)
[2019-12-02] MEDS: HYTRIN PO SCH (10:39)
[2019-12-02] MEDS: LOPRESSOR TAB 25 MG PO SCH (10:39)
[2019-12-02] MEDS: SYNTHROID 25 mcg TAB PO SCH (10:39)
[2019-12-02] MEDS: DIFLUCAN 100 MG IV (MIX by PHARMACY)* 100 MG/50 ML BAG IV SCH (11:06)
[2019-12-02 12:18] VITALS: BP 140/86
== END 2019-12-02 12:15 | DRG 175 ==
LOC: ER 14:18 → OBS 14:18 → MED/SURG 11-20 19:14
PROVIDERS: ADMIT Internal Medicine; ATTEND Internal Medicine
DX: R26.89 Other abnormalities of gait and mobility; R40.4 Transient alteration of awareness; J18.0 Bronchopneumonia, unspecified organism; R53.1 Weakness; R39.198 Other difficulties with micturition; R60.0 Localized edema; R06.02 Shortness of breath; I26.94 Multiple subsegmental thrombotic pulmonary emboli without acute cor pulmonale
CPT/HCPCS: 36415; 71010; 71045; 71275; 74000; 74018; 74177; 80048; 80053; 81001; 82550; 82553; 83605; 83735; 84100; 84132; 84134; 84478; 84484; 85025; 85610; 87040; 87070; 87205; 93005; 93970; 94640; 94669; 94760; 96365; 96374; 97110; 97116; 97162; 97167; 97530; 97535; 99284; A4216; A4222; B4189; G0378; J1450; J1650; J1940; J2405; J2543; J3475; J3480; J7030; J7050; J7608; J7620; J7626; P9047

== ENCOUNTER 2020-01-01 21:18 | Inpatient (IN) ==
--- NOTE | 2020-01-01 22:15 | DR.GIBLEED ---
HPI Time Seen Time Seen by Provider: 01/01/20 22:06 Primary Care Physician Primary Care Physician: MOHIT Complaints Chief Complaint Doctors Comments: An 79 y/o brought into the ED from [place] via EMS at his family request. Pt. is a poor historian but EMS staff reported that his had stated he started having rectal bleed from about 5 P.M. this ev ening. He had been on Coumadin but the family had stopped this 2 days ago. Chief Complaint:: PT IN ED FROM [facility] VIA STRETCHER PER [facility] EMS WITH C/O RECTAL BLEEDING. STATED BLEEDING STARTED AT 5PM TODAY. PT ON COUMADIN AND FAMILY STOPPED THIS ON MONDAY. COVID-19 Coronavirus risk:travel/contact w/high risk person: No Has patient experienced Coronavirus symptoms: No Reviewed Nurses Notes Reviewed: Yes Source History Provided: EMS Mode of Arrival Mode of Arrival: Stretcher Timing Onset of Chief Complaint: 01/01/20 Quality Prehospital Care:: None Context Onset: Spontaneous Recent Use Of: None Associated Signs and Symptoms Associated Signs and Symptoms: denies Chest Pain, Abdominal Pain, Diarrhea, Epistaxis, Menorrhagia (female) and Faintness PMH PMH Past Medical History: Yes Past Medical History: Dementia, Hypertension and Renal Disease Past Medical History Comment: PULMONARY EMBOLIS Past Surgical History: Yes Surgical History: Tonsillectomy Family History History of Family Medical Conditions: Yes Family Medical History: [place], Coronary Artery Disease, Heart Failure and Hypertension Social History Does patient currently use any type of tobacco product: No Have you used tobacco products in the last 12 months: No Type of Tobacco Use: None Does any household member use tobacco: No Alcohol Use: None Do you use any recreational Drugs:: No Lives With: Family Lives Where: Home Travel Risk Coronavirus risk:travel/contact w/high risk person: No Has patient experienced Coronavirus symptoms: No Infectious screening In the last 2 months have you had wt loss of >10#?: NO Have you had fever, night sweats or hemotysis?: No Have you traveled outside the country in the last 6 months?: No Isolation: Standard ROS Review of Systems Constitutional: No Symptoms Reported Eyes: No Symptoms Reported ENTM: No Symptoms Reported Respiratoy: No Symptoms Reported Cardiovascular: No Symptoms Reported Gastrointestinal/Abdominal: Other (Blood per rectum) Genitourinary: No Symptoms Reported Neurological: No Symptoms Reported Musculoskeletal: No Symptoms Reported Integumentary: No Symptoms Reported Hematologic/Lymphatic: No Symptoms Reported Endocrine: No Symptoms Reported Psychiatric: No Symptoms Reported PE Vital Signs Vitals: Temperature 99.5 F Pulse Rate 111 Respiratory Rate 20 Blood Pressure [Right Arm] 140/86 Blood Pressure 166/88 O2 Sat by Pulse Oximetry 96 General Limitations: No Limitations General Appearance: Alert and In No Apparent Distress Head Head Exam: Normal Inspection, Atraumatic and Normocephalic Eyes Eye exam: Normal Appearance and EOMI ENT ENT Exam: Normal Exam, Normal Oropharynx, Normal External Ear Exam and Mucous Membranes Moist Neck Neck Exam: Normal Inspection and Trachea Midline Chest Chest Inspection: Normal Inspection and Symmetric Chest Wall Rise Respiratory Respiratory Exam: Normal Lung Sounds Bilat Cardiovascular Cardiovascular Exam: Regular Rate, Normal Rhythm, Normal Heart Sounds, +S1, +S2 and Other (1+ pedal edema, pitting ) Abdominal Exam Abdominal Exam: Normal Inspection, Normal Bowel Sounds and Soft Rectal Rectal Exam: Deferred Extremities Extremities Exam: Normal Inspection and Full ROM Back Back Exam: Normal Inspection and Full ROM Neurologic Neurological Exam: Alert and Other (oriented to self) Psychiatric Psychiatric Exam: Normal Mood Skin Skin Exam: Dry and Intact COURSE Reevaluation 1st: Unchanged Education/Counseling Education/Counseling: Patient, Family, Education and Counseling Educated On: Treatment, Diagnosis, Prognosis and Needs for Follow Up ROR Labs Reviewed Result Diagrams: 01/01/20 22:40 01/01/20 22:40 Laboratory: WBC 8.4 X10^3/uL (3.6-10.0) 01/01/20 22:40 RBC 3.60 X10^6/uL (4.7-6.0) L 01/01/20 22:40 Hgb 11.0 g/dL (13.5-18.0) L 01/01/20 22:40 Hct 31.9 % (42.0-54.0) L 01/01/20 22:40 MCV 88.8 fL (80.0-100.0) 01/01/20 22:40 MCH 30.4 pg (27.0-34.0) 01/01/20 22:40 MCHC 34.3 g/dL (33.0-35.0) 01/01/20 22:40 RDW 14.1 % (11.6-16.5) 01/01/20 22:40 Plt Count 267 X10^3/uL (150.0-450.0) 01/01/20 22:40 MPV 7.9 fL (7.4-11.0) 01/01/20 22:40 Neut % (Auto) 79.5 % (42.0-75.0) H 01/01/20 22:40 Lymph % (Auto) 9.8 % (21.0-51.0) L 01/01/20 22:40 [place] % (Auto) 9.0 % (0.0-13.0) 01/01/20 22:40 Eos % (Auto) 1.1 % (0.9-2.9) 01/01/20 22:40 Baso % (Auto) 0.6 % (0.2-1.0) 01/01/20 22:40 Neut # (Auto) 6.7 x10^3/uL (2.2-4.8) H 01/01/20 22:40 Lymph # (Auto) 0.8 X10^3/uL (1.3-2.9) L 01/01/20 22:40 [place] # (Auto) 0.8 x10^3/uL (0.3-0.8) 01/01/20 22:40 Eos # (Auto) 0.1 x10^3/uL (0.0-0.2) 01/01/20 22:40 Baso # (Auto) 0.0 X10^3/uL (0.0-0.1) 01/01/20 22:40 Absolute Nucleated RBC 0.0 /100WBC 01/01/20 22:40 PT 41.9 SECONDS (11.8-14.3) 01/01/20 22:40 INR Target Range - 01/01/20 22:40 INR 4.58 (0.8-1.3) H 01/01/20 22:40 Sodium 139 mmol/L (136-145) 01/01/20 22:40 Corrected Sodium TNP 01/01/20 22:40 Potassium 3.0 mmol/L (3.5-5.1) L* 01/01/20 22:40 Chloride 103 mmol/L (98-107) 01/01/20 22:40 Carbon Dioxide 25.3 mmol/L (21-32) 01/01/20 22:40 BUN 13 mg/dL (7-18) 01/01/20 22:40 Creatinine 2.18 mg/dL (0.70-1.30) H 01/01/20 22:40 Est GFR (MDRD) Af Amer 38 (>60) L 01/01/20 22:40 Est GFR (MDRD) Non-Af 31 (>60) L 01/01/20 22:40 Glucose 88 mg/dL (65-99) 01/01/20 22:40 Calcium 7.7 mg/dL (8.5-10.1) L 01/01/20 22:40 Corrected Calcium 9.0 mg/dL (8.5-10.1) 01/01/20 22:40 Total Bilirubin 0.60 mg/dL (0.2-1.0) 01/01/20 22:40 AST 17 Units/L (15-37) 01/01/20 22:40 ALT 16 Units/L (12-78) 01/01/20 22:40 Alkaline Phosphatase 28 Units/L (46-116) L 01/01/20 22:40 Total Protein 6.9 g/dL (6.4-8.2) 01/01/20 22:40 Albumin 2.4 g/dL (3.4-5.0) L 01/01/20 22:40 Globulin 4.5 g/dL (2.5-4.5) 01/01/20 22:40 Albumin/Globulin Ratio 0.5 Ratio (1.1-2.1) L 01/01/20 22:40 Stool Description Y 01/01/20 22:20 Stl Occult Blood (IFOB) Positive (NEGATIVE) A 01/01/20 22:20 Opioid Opioid Risk Tool Age (Dex box if 16-45): No History of Preadolescent Sexual Abuse: No Total: 0 Total Score Risk Category: Low Risk Copyright: Rodrigo HASKINS predicting aberrant behaviors Diagnosis Discharge Problem: Lower gastrointestinal bleed, Hypokalemia, Elevated INR, Anemia, normocytic normochromic Instructions Forms: Excuse From Work Precautions for COVID19 Patient Portal Social Distancing ADDITIONAL NOTES Additional Notes Additional Notes: Name: VENKATESH RAMIREZ : 1940 Sex: M Location: Order Number(s): [id number] Procedure(s):CHEST, 1 VIEW Ordering Physician: IVETT CARLISLE Primary Care: Lebron Kelley Service Date: 01/01/20 Service Time: 2207 STUDY: CHEST, 1 VIEW COMPARISON: December 01, 2019 HISTORY: RECTAL BLEEDING, FEVER FINDINGS: There is a curvilinear shaped linear opacity overlying the right lower lung zone compatible with airspace disease in the right lower lung zone. Tiny small bilateral pleural effusions are suggested. No pneumothorax is seen. The cardiomediastinal contour is magnified on this portable technique. IMPRESSION: 1. There is a curvilinear shaped linear opacity overlying the right lower lung zone compatible with airspace disease in the right lower lung zone. This appears different from the prior study and may represent recurrence of acute airspace disease such as an infectious process. 2. Tiny small bilateral pleural effusions are suggested Electronically signed by: Te Boudreaux (Jan 01, 2020 22:29:22)
--- NOTE | 2020-01-01 22:31 | RAD ---
STUDY: CHEST, 1 VIEWCOMPARISON: December 01, 2019HISTORY: RECTAL BLEEDING, FEVERFINDINGS:There is a curvilinear shaped linear opacity overlying the right lower lung zone compatible with airspace disease in the right lower lung zone. Tiny small bilateral pleural effusions are suggested. No pneumothorax is seen. The cardiomediastinal contour is magnified on this portable technique.IMPRESSION:1. There is a curvilinear shaped linear opacity overlying the right lower lung zone compatible with airspace disease in the right lower lung zone. This appears different from the prior study and may represent recurrence of acute airspace disease such as an infectious process.2. Tiny small bilateral pleural effusions are suggestedElectronically signed by: Te Boudreaux (Jan 01, 2020 22:29:22)
[2020-01-01 22:53] LABS: BASOPHILS % (AUTO) 0.6 % (0.2-1.0); EOSINOPHILS # (AUTO) 0.1 x10^3/uL (0.0-0.2); EOSINOPHILS % (AUTO) 1.1 % (0.9-2.9); HEMATOCRIT 31.9 % (42.0-54.0); LYMPHOCYTES # (AUTO) 0.8 X10^3/uL (1.3-2.9); LYMPHOCYTES % (AUTO) 9.8 % (21.0-51.0); MEAN CORPUSCULAR HEMOGLOBIN 30.4 pg (27.0-34.0); MEAN CORPUSCULAR HGB CONC 34.3 g/dL (33.0-35.0); MEAN CORPUSCULAR VOLUME 88.8 fL (80.0-100.0); MEAN PLATELET VOLUME 7.9 fL (7.4-11.0); MONOCYTES # (AUTO) 0.8 x10^3/uL (0.3-0.8); NEUTROPHILS # (AUTO) 6.7 x10^3/uL (2.2-4.8); NEUTROPHILS % (AUTO) 79.5 % (42.0-75.0); PLATELET COUNT 267 X10^3/uL (150.0-450.0); RED CELL DISTRIBUTION WIDTH 14.1 % (11.6-16.5); WHITE BLOOD COUNT 8.4 X10^3/uL (3.6-10.0)
[2020-01-01 23:01] LABS: BLOOD UREA NITROGEN 13 mg/dL (7-18); CALCIUM 7.7 mg/dL (8.5-10.1); CARBON DIOXIDE 25.3 mmol/L (21-32); CHLORIDE 103 mmol/L (98-107); CREATININE 2.18 mg/dL (0.70-1.30); SODIUM 139 mmol/L (136-145); eGFR NON BLACK RACES 31 (>60)
[2020-01-01 23:06] LABS: ALANINE AMINOTRANSFERASE 16 Units/L (12-78); ALBUMIN 2.4 g/dL (3.4-5.0); ALKALINE PHOSPHATASE 28 Units/L (46-116); ASPARTATE AMINO TRANSFERASE 17 Units/L (15-37); TOTAL PROTEIN 6.9 g/dL (6.4-8.2)
[2020-01-01] MEDS ORDERED: KLOR-CON PO ONE (23:19)
[2020-01-01] MEDS ORDERED: POTASSIUM CHLORIDE LIQ 20 MEQ UDC ONE (23:22)
[2020-01-01] MEDS ORDERED: K-DUR TAB 20 MEQ PO ONE ×2 (23:29→23:32)
[2020-01-02] MEDS ORDERED: ZOFRAN TAB 4 MG PO PRN (00:11)
[2020-01-02] MEDS ORDERED: COLACE CAP 100 MG PO PRN (00:11)
[2020-01-02] MEDS ORDERED: K-DUR TAB 20 MEQ PO ONE (00:11)
[2020-01-02] MEDS: NS 1000 ML 1,000 ML IV SCH ×2 (01:05→14:25)
[2020-01-02 01:19] VITALS: BMI 27.5
[2020-01-02] MEDS: DUONEB 0.5 MG/3 MG (3 mL) NEB SCH ×3 (05:35→20:45)
[2020-01-02 05:48] LABS: BASOPHILS % (AUTO) 0.7 % (0.2-1.0); EOSINOPHILS # (AUTO) 0.1 x10^3/uL (0.0-0.2); EOSINOPHILS % (AUTO) 1.8 % (0.9-2.9); HEMATOCRIT 27.3 % (42.0-54.0); HEMOGLOBIN 9.6 g/dL (13.5-18.0); LYMPHOCYTES # (AUTO) 1.3 X10^3/uL (1.3-2.9); LYMPHOCYTES % (AUTO) 18.8 % (21.0-51.0); MEAN CORPUSCULAR HEMOGLOBIN 31.1 pg (27.0-34.0); MEAN CORPUSCULAR HGB CONC 35.1 g/dL (33.0-35.0); MEAN CORPUSCULAR VOLUME 88.6 fL (80.0-100.0); MEAN PLATELET VOLUME 8.8 fL (7.4-11.0); MONOCYTES # (AUTO) 0.8 x10^3/uL (0.3-0.8); MONOCYTES % (AUTO) 12.3 % (0.0-13.0); NEUTROPHILS # (AUTO) 4.5 x10^3/uL (2.2-4.8); NEUTROPHILS % (AUTO) 66.4 % (42.0-75.0); PLATELET COUNT 232 X10^3/uL (150.0-450.0); RED BLOOD COUNT 3.08 X10^6/uL (4.7-6.0); RED CELL DISTRIBUTION WIDTH 13.9 % (11.6-16.5); WHITE BLOOD COUNT 6.8 X10^3/uL (3.6-10.0)
[2020-01-02 05:57] LABS: ALANINE AMINOTRANSFERASE 11 Units/L (12-78); ALKALINE PHOSPHATASE 22 Units/L (46-116); ASPARTATE AMINO TRANSFERASE 18 Units/L (15-37); BLOOD UREA NITROGEN 13 mg/dL (7-18); CALCIUM 7.1 mg/dL (8.5-10.1); CHLORIDE 105 mmol/L (98-107); COR CA(FOR HYPOALB) 8.7 mg/dL (8.5-10.1); SODIUM 139 mmol/L (136-145); eGFR NON BLACK RACES 32 (>60)
[2020-01-02 06:09] LABS: CARBON DIOXIDE 23.5 mmol/L (21-32)
[2020-01-02] MEDS ORDERED: POTASSIUM CHL 40 MEQ/NS 0.45% 500 ML IV PRN (07:49)
[2020-01-02] MEDS ORDERED: POTASSIUM CHL 60 MEQ/NS 0.45% 500 ML IV PRN (07:49)
[2020-01-02] MEDS ORDERED: MICRO K EXTEN CAP 10 MEQ PO PRN (07:49)
[2020-01-02] MEDS ORDERED: POTASSIUM CHLORIDE LIQ 20 MEQ UDC PO PRN (07:49)
[2020-01-02] MEDS ORDERED: KLOR-CON PO PRN (07:49)
[2020-01-02] MEDS: PULMICORT NEB TX 0.5 MG NEB SCH ×2 (08:35→20:55)
[2020-01-02] MEDS ORDERED: COLESEVELAM PO SCH (09:00)
[2020-01-02] MEDS: ROCEPHIN VIAL 1 GRAM 1 G in NS 100 ML IV + SPIKE MINIBAG* 100 ML IV SCH (09:30)
[2020-01-02] MEDS: LOPRESSOR TAB 25 MG PO SCH (09:30)
[2020-01-02] MEDS: ARICEPT TAB 10 MG PO SCH (10:00)
[2020-01-02] MEDS: MAGNESIUM SULFATE 1 GRAM/100 mL PREMIX 1 GM/100 ML BAG IV PRN ×6 (11:08→21:53)
--- NOTE | 2020-01-02 12:03 | DR.H&P ---
H&P - History & Physical for Day of: H&P Date: 01/02/20 - Chief Complaint Chief Complaint: BLOOD IN STOOL - History of Present Illness History of Present Illness: PT IS 79 WM ER ADMISSION AFTER BEING EMS TRANSFER FROM [place]. 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 RECENTLY HAD PNEUMONIA AND WAS AT HOME ON PO ANTIBIOTICS. PT ON COUMADIN THERAPY, WHICH FAMILY REPORTS THEY HAVE NOT GIVEN HIME FOR 2 DAYS. 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 PT ADMITTED FOR TREATMENT AND EVALUATION OF AUTE ILLNESS. - Past Medical History Past Medical History: Hypertension, Renal Disease, Dementia - Past Surgical History Surgical History: Tonsillectomy - Family History Family Medical History: [place], Coronary Artery Disease, Heart Failure, Hypertension - Social History Does patient currently use any type of tobacco product: No Have you used tobacco products in the last 12 months: No Type of Tobacco Use: None Does any household member use tobacco: No Alcohol Use: None Drug Use: None - Medications Home Medications: No Known Drug Allergies Allergy (Verified 11/17/19 08:56) CONTINUE taking the following medications colesevelam 3.375 g PO DAILY 01/01/20 [History] diphenoxylate-atropine 2 tab PO TID 01/01/20 [History] megestrol 20 mg PO BID 01/01/20 [History] ondansetron 8 mg PO Q8H PRN 01/01/20 [History] terazosin 2 mg PO HS 01/01/20 [History] warfarin 2.5 mg PO DAILY 01/01/20 [History] - Review of Systems Constitutional: denies: Fever, Chills Eyes: No Symptoms Reported ENT: No Symptoms Reported Respiratory: Cough Cardiovascular: No Symptoms Reported Gastrointestinal: No Symptoms Reported, Melena Genitourinary: No Symptoms Reported Musculoskeletal: No Symptoms Reported Skin: No Symptoms Reported Neurological: Confusion (CHRONIC DEMENTIA) - Physical Exam Vital Signs: Temperature 99.9 F Pulse Rate [Left Brachial] 88 Pulse Rate 87 Respiratory Rate 18 Blood Pressure [Left Arm] 137/79 Blood Pressure [Right Arm] 176/77 Blood Pressure 166/88 O2 Sat by Pulse Oximetry 94 Oriented: Normal Eyes: Normal Ear: Normal Nose: Normal Throat: Dry Respiratory: RLL Diminished, LLL Diminished Cardiovascular: Edema : Normal Auscultation: Bowel Sounds: Normal Palpation: Normal Tenderness: Normal Skin: Decreased Turgur Musculoskeletal: Motor Deficit (MILD UPPER AND LOWER MUSCLE WEAKNESS) Mood Description: Calm Speech Pattern: Inappropriate, Delayed - Assessment/Plan (1) Pneumonia Status: Acute Plan: ADMIT, SPUTUM ON ADMISSION AND CHEST XRAY. BLOOD CULTURES, IV HYDRATION. STRICT I& OS, SUPPLEMENAL O2, DUO NEBS. IV ROCEPHIN, INR Q8 UNTIL < 3, SERIAL OCCULT STOOLS X3. STOOL STUDIES, HOLD COUMADIN DIRECTED. VERIFY HOME MEDICATION, CARDIAC MONITORING (2) Elevated INR Status: Acute (3) Lower gastrointestinal bleed Status: Acute - Allergies Allergies/Adverse Reactions: Allergies Allergy/AdvReac Type Severity Reaction Status Date / Time No Known Drug Allergies Allergy Verified 11/17/19 08:56
[2020-01-02 12:40] LABS: HEMATOCRIT 30.1 % (42.0-54.0); HEMOGLOBIN 10.2 g/dL (13.5-18.0)
[2020-01-02] MEDS: PROTONIX INJ 40 MG VIAL IVP SCH ×2 (13:10→21:36)
[2020-01-02] MEDS: ROBITUSSIN DM PO SCH ×4 (14:25→21:36)
[2020-01-02] MEDS: AVODART PO SCH (14:30)
[2020-01-02] MEDS: K-DUR TAB 20 MEQ PO PRN (14:30)
[2020-01-02] MEDS: SYNTHROID 25 mcg TAB PO SCH (14:30)
[2020-01-02] MEDS: DITROPAN TAB 5 MG PO SCH (14:30)
[2020-01-02] MEDS: MEGACE PO SCH ×2 (14:30→21:36)
[2020-01-02] MEDS: HEMOCYTE-PLUS PO SCH (14:30)
[2020-01-02] MEDS ORDERED: VANCOMYCIN HCL PO SCH (21:00)
[2020-01-02] MEDS: HYTRIN PO SCH (21:35)
[2020-01-02] MEDS: ZITHROMAX INJ 500 MG VIAL 250 MG in D5W 250 ML IV 250 ML IV SCH (21:35)
[2020-01-02] MEDS: NYSTATIN POWDER TOP PRN (21:38)
[2020-01-03] MEDS: ULTRAM PO PRN (00:02)
[2020-01-03] MEDS: NS 1000 ML 1,000 ML IV SCH ×3 (01:47→16:06)
[2020-01-03 02:57] LABS: BASOPHILS % (AUTO) 0.7 % (0.2-1.0); EOSINOPHILS # (AUTO) 0.2 x10^3/uL (0.0-0.2); EOSINOPHILS % (AUTO) 2.6 % (0.9-2.9); HEMATOCRIT 27.1 % (42.0-54.0); HEMOGLOBIN 9.2 g/dL (13.5-18.0); LYMPHOCYTES # (AUTO) 1.2 X10^3/uL (1.3-2.9); LYMPHOCYTES % (AUTO) 16.9 % (21.0-51.0); MEAN CORPUSCULAR HEMOGLOBIN 30.2 pg (27.0-34.0); MEAN CORPUSCULAR HGB CONC 34.1 g/dL (33.0-35.0); MEAN CORPUSCULAR VOLUME 88.6 fL (80.0-100.0); MEAN PLATELET VOLUME 8.1 fL (7.4-11.0); MONOCYTES # (AUTO) 0.9 x10^3/uL (0.3-0.8); MONOCYTES % (AUTO) 13.1 % (0.0-13.0); NEUTROPHILS # (AUTO) 4.7 x10^3/uL (2.2-4.8); NEUTROPHILS % (AUTO) 66.7 % (42.0-75.0); PLATELET COUNT 234 X10^3/uL (150.0-450.0); RED BLOOD COUNT 3.06 X10^6/uL (4.7-6.0)
[2020-01-03 03:00] LABS: ALANINE AMINOTRANSFERASE 11 Units/L (12-78); ALKALINE PHOSPHATASE 19 Units/L (46-116); ASPARTATE AMINO TRANSFERASE 13 Units/L (15-37); BLOOD UREA NITROGEN 13 mg/dL (7-18); CARBON DIOXIDE 23.9 mmol/L (21-32); CHLORIDE 103 mmol/L (98-107); COR CA(FOR HYPOALB) 8.6 mg/dL (8.5-10.1); CREATININE 2.29 mg/dL (0.70-1.30); MAGNESIUM 2.4 mg/dL (1.7-2.9); SODIUM 137 mmol/L (136-145); TOTAL PROTEIN 5.9 g/dL (6.4-8.2); eGFR NON BLACK RACES 29 (>60)
[2020-01-03] MEDS: K-RIDER 10 MEQ/NS 100 ML 10 MEQ/100 ML BAG IV PRN ×4 (04:31→08:43)
[2020-01-03] MEDS: NYSTATIN POWDER TOP PRN (05:59)
[2020-01-03] MEDS: DUONEB 0.5 MG/3 MG (3 mL) NEB SCH ×3 (06:22→21:13)
[2020-01-03] MEDS ORDERED: AQUA-MEPHYTON ADULT INJ IV STA (07:10)
[2020-01-03] MEDS ORDERED: NS IV NR ×2 (08:00)
[2020-01-03] MEDS ORDERED: AQUA MEPHYTON ADULT IV NR ×2 (08:00)
[2020-01-03] MEDS: PULMICORT NEB TX 0.5 MG NEB SCH ×2 (08:15→20:54)
[2020-01-03] MEDS: LOPRESSOR TAB 25 MG PO SCH (08:56)
[2020-01-03] MEDS: VANCOMYCIN HCL PO SCH ×4 (08:56→20:24)
[2020-01-03] MEDS: ARICEPT TAB 10 MG PO SCH (08:57)
[2020-01-03] MEDS: SYNTHROID 25 mcg TAB PO SCH (08:58)
[2020-01-03] MEDS: MEGACE PO SCH ×2 (08:58→20:25)
[2020-01-03] MEDS: DITROPAN TAB 5 MG PO SCH (08:58)
[2020-01-03] MEDS: ROBITUSSIN DM PO SCH ×4 (08:59→20:26)
[2020-01-03] MEDS: HEMOCYTE-PLUS PO SCH (08:59)
[2020-01-03] MEDS: K-DUR TAB 20 MEQ PO SCH ×2 (09:00→20:25)
[2020-01-03] MEDS: PROTONIX INJ 40 MG VIAL IVP SCH ×2 (09:00→20:24)
[2020-01-03] MEDS: WELCHOL PO SCH (09:25)
[2020-01-03] MEDS: AVODART PO SCH (09:26)
[2020-01-03] MEDS: ROCEPHIN VIAL 1 GRAM 1 G in NS 100 ML IV + SPIKE MINIBAG* 100 ML IV SCH (09:52)
[2020-01-03 11:33] LABS: HEMATOCRIT 27.3 % (42.0-54.0); HEMOGLOBIN 9.5 g/dL (13.5-18.0)
[2020-01-03] MEDS: K-DUR TAB 20 MEQ PO PRN (13:05)
[2020-01-03] MEDS: HYTRIN PO SCH (20:25)
[2020-01-03] MEDS: ZITHROMAX INJ 500 MG VIAL 250 MG in D5W 250 ML IV 250 ML IV SCH (20:33)
[2020-01-04] MEDS: VANCOMYCIN HCL PO SCH ×4 (02:37→21:53)
[2020-01-04] MEDS: NS 1000 ML 1,000 ML IV SCH (04:16)
[2020-01-04 06:07] LABS: BASOPHILS # (AUTO) 0.1 X10^3/uL (0.0-0.1); BASOPHILS % (AUTO) 0.8 % (0.2-1.0); EOSINOPHILS # (AUTO) 0.3 x10^3/uL (0.0-0.2); EOSINOPHILS % (AUTO) 3.4 % (0.9-2.9); HEMATOCRIT 26.9 % (42.0-54.0); HEMOGLOBIN 9.2 g/dL (13.5-18.0); LYMPHOCYTES # (AUTO) 1.8 X10^3/uL (1.3-2.9); LYMPHOCYTES % (AUTO) 21.8 % (21.0-51.0); MEAN CORPUSCULAR HEMOGLOBIN 30.5 pg (27.0-34.0); MEAN CORPUSCULAR HGB CONC 34.3 g/dL (33.0-35.0); MEAN CORPUSCULAR VOLUME 88.9 fL (80.0-100.0); MEAN PLATELET VOLUME 8.5 fL (7.4-11.0); MONOCYTES # (AUTO) 1.1 x10^3/uL (0.3-0.8); MONOCYTES % (AUTO) 13.3 % (0.0-13.0); NEUTROPHILS % (AUTO) 60.7 % (42.0-75.0); PLATELET COUNT 214 X10^3/uL (150.0-450.0); RED BLOOD COUNT 3.03 X10^6/uL (4.7-6.0); RED CELL DISTRIBUTION WIDTH 14.1 % (11.6-16.5); WHITE BLOOD COUNT 8.2 X10^3/uL (3.6-10.0)
[2020-01-04 06:14] LABS: ALANINE AMINOTRANSFERASE 12 Units/L (12-78); ALBUMIN 2.2 g/dL (3.4-5.0); ALKALINE PHOSPHATASE 23 Units/L (46-116); ASPARTATE AMINO TRANSFERASE 17 Units/L (15-37); BLOOD UREA NITROGEN 12 mg/dL (7-18); CALCIUM 7.5 mg/dL (8.5-10.1); CARBON DIOXIDE 21.8 mmol/L (21-32); CHLORIDE 103 mmol/L (98-107); COR CA(FOR HYPOALB) 8.9 mg/dL (8.5-10.1); CREATININE 2.45 mg/dL (0.70-1.30); SODIUM 134 mmol/L (136-145); TOTAL PROTEIN 6.2 g/dL (6.4-8.2); eGFR NON BLACK RACES 27 (>60)
[2020-01-04] MEDS: DUONEB 0.5 MG/3 MG (3 mL) NEB SCH ×3 (06:15→21:10)
[2020-01-04] MEDS: ARICEPT TAB 10 MG PO SCH (09:33)
[2020-01-04] MEDS: DITROPAN TAB 5 MG PO SCH (09:34)
[2020-01-04] MEDS: AVODART PO SCH (09:34)
[2020-01-04] MEDS: HEMOCYTE-PLUS PO SCH (09:35)
[2020-01-04] MEDS: LOPRESSOR TAB 25 MG PO SCH (09:35)
[2020-01-04] MEDS: K-DUR TAB 20 MEQ PO SCH ×2 (09:35→21:52)
[2020-01-04] MEDS: ROBITUSSIN DM PO SCH ×4 (09:36→21:52)
[2020-01-04] MEDS: PROTONIX INJ 40 MG VIAL IVP SCH ×2 (09:36→21:54)
[2020-01-04] MEDS: MEGACE PO SCH ×2 (09:36→21:52)
[2020-01-04] MEDS: SYNTHROID 25 mcg TAB PO SCH (09:37)
[2020-01-04] MEDS: WELCHOL PO SCH (09:37)
[2020-01-04] MEDS: ROCEPHIN VIAL 1 GRAM 1 G in NS 100 ML IV + SPIKE MINIBAG* 100 ML IV SCH (09:38)
[2020-01-04] MEDS: PULMICORT NEB TX 0.5 MG NEB SCH ×2 (09:40→21:00)
[2020-01-04 12:35] LABS: HEMATOCRIT 28.9 % (42.0-54.0); HEMOGLOBIN 9.7 g/dL (13.5-18.0)
[2020-01-04] MEDS ORDERED: ZITHROMAX TAB 250 MG PO ONE ×2 (13:11→16:08)
[2020-01-04] MEDS: LASIX PO SCH (16:06)
[2020-01-04] MEDS: HYTRIN PO SCH (21:52)
[2020-01-04] MEDS: ULTRAM PO PRN (21:53)
[2020-01-04] MEDS: NYSTATIN POWDER TOP PRN (21:53)
[2020-01-05] MEDS: VANCOMYCIN HCL PO SCH ×3 (03:18→15:00)
[2020-01-05 05:02] LABS: BASOPHILS # (AUTO) 0.1 X10^3/uL (0.0-0.1); BASOPHILS % (AUTO) 0.9 % (0.2-1.0); EOSINOPHILS # (AUTO) 0.3 x10^3/uL (0.0-0.2); EOSINOPHILS % (AUTO) 3.1 % (0.9-2.9); HEMOGLOBIN 9.3 g/dL (13.5-18.0); MEAN CORPUSCULAR HGB CONC 34.4 g/dL (33.0-35.0); MEAN PLATELET VOLUME 8.9 fL (7.4-11.0); MONOCYTES % (AUTO) 11.5 % (0.0-13.0); NEUTROPHILS # (AUTO) 5.7 x10^3/uL (2.2-4.8); NEUTROPHILS % (AUTO) 62.5 % (42.0-75.0); PLATELET COUNT 211 X10^3/uL (150.0-450.0); RED CELL DISTRIBUTION WIDTH 14.1 % (11.6-16.5); WHITE BLOOD COUNT 9.1 X10^3/uL (3.6-10.0)
[2020-01-05 05:16] LABS: ALANINE AMINOTRANSFERASE 14 Units/L (12-78); ALBUMIN 2.3 g/dL (3.4-5.0); ALKALINE PHOSPHATASE 26 Units/L (46-116); ASPARTATE AMINO TRANSFERASE 19 Units/L (15-37); BLOOD UREA NITROGEN 12 mg/dL (7-18); CALCIUM 7.6 mg/dL (8.5-10.1); CARBON DIOXIDE 20.3 mmol/L (21-32); CHLORIDE 105 mmol/L (98-107); CREATININE 2.91 mg/dL (0.70-1.30); SODIUM 136 mmol/L (136-145); TOTAL PROTEIN 6.3 g/dL (6.4-8.2); eGFR NON BLACK RACES 22 (>60)
[2020-01-05] MEDS: NS 1000 ML 1,000 ML IV SCH (05:37)
[2020-01-05] MEDS: DUONEB 0.5 MG/3 MG (3 mL) NEB SCH (06:10)
[2020-01-05] MEDS: ROCEPHIN VIAL 1 GRAM 1 G in NS 100 ML IV + SPIKE MINIBAG* 100 ML IV SCH (09:06)
[2020-01-05] MEDS: WELCHOL PO SCH (09:09)
[2020-01-05] MEDS: LASIX PO SCH (09:10)
[2020-01-05] MEDS: K-DUR TAB 20 MEQ PO SCH (09:12)
[2020-01-05] MEDS: LOPRESSOR TAB 25 MG PO SCH (09:12)
[2020-01-05] MEDS: MEGACE PO SCH (09:13)
[2020-01-05] MEDS: PULMICORT NEB TX 0.5 MG NEB SCH (09:32)
[2020-01-05] MEDS: SYNTHROID 25 mcg TAB PO SCH (09:33)
[2020-01-05] MEDS: ARICEPT TAB 10 MG PO SCH (09:34)
[2020-01-05] MEDS: ULTRAM PO PRN (09:34)
[2020-01-05] MEDS: HEMOCYTE-PLUS PO SCH (09:34)
[2020-01-05] MEDS: DITROPAN TAB 5 MG PO SCH (09:35)
[2020-01-05] MEDS: ROBITUSSIN DM PO SCH ×2 (09:47→13:21)
[2020-01-05] MEDS: AVODART PO SCH (09:47)
[2020-01-05] MEDS: PROTONIX INJ 40 MG VIAL IVP SCH (09:47)
[2020-01-05 12:07] LABS: HEMATOCRIT 26.7 % (42.0-54.0); HEMOGLOBIN 9.1 g/dL (13.5-18.0)
[2020-01-05 13:27] VITALS: BP 165/87
== END 2020-01-05 15:35 | disposition home health service (06) | DRG 372 ==
LOC: ER 21:19 → MED/SURG 21:19
PROVIDERS: ADMIT Family Medicine; ATTEND Internal Medicine
DX: R26.89 Other abnormalities of gait and mobility; R94.31 Abnormal electrocardiogram [ECG] [EKG]; E83.42 Hypomagnesemia; R60.0 Localized edema; K92.2 Gastrointestinal hemorrhage, unspecified; R79.1 Abnormal coagulation profile; E87.6 Hypokalemia; I10 Essential (primary) hypertension; A04.5 Campylobacter enteritis; A04.72 Enterocolitis due to Clostridium difficile, not specified as recurrent